=== PATIENT | male | born 1950 | race African-American/Black ===

== ENCOUNTER 2020-02-12 11:24 | Outpatient (REF) | payer MEDICARE, MEDICAID, SELFPAY | END 2020-02-12 11:25 | disposition home or self-care (01) | LOC: HO.LAB 11:24 | PROVIDERS: Visit Provider Internal Medicine | DX: Z20.828 Contact with and (suspected) exposure to other viral communicable diseases (principal) | CPT/HCPCS: C9803; U0003 ==

== ENCOUNTER 2020-02-26 13:26 | Outpatient (REF) | payer MEDICARE, MEDICAID, SELFPAY | END 2020-02-26 13:27 | disposition home or self-care (01) | LOC: HO.LAB 13:26 | PROVIDERS: Visit Provider Internal Medicine | DX: Z20.828 Contact with and (suspected) exposure to other viral communicable diseases (principal) | CPT/HCPCS: C9803; U0003 ==

== ENCOUNTER → 2020-03-30 12:59 | Outpatient (BNVA) | payer MEDICARE, MEDICAID, SELFPAY | PROVIDERS: PCP Internal Medicine; Visit Provider Urology | DX: N40.0 Benign prostatic hyperplasia without lower urinary tract symptoms (principal) | CPT/HCPCS: 51798; 99212 ==

== ENCOUNTER 2020-04-02 10:45 | Outpatient (REF) | payer MEDICARE, MEDICAID, SELFPAY | END 2020-04-02 10:46 | disposition home or self-care (01) | LOC: HO.LAB 10:45 | PROVIDERS: Visit Provider Internal Medicine | DX: Z20.828 Contact with and (suspected) exposure to other viral communicable diseases (principal) | CPT/HCPCS: C9803; U0003 ==

== ENCOUNTER 2020-05-27 12:22 | Outpatient (REF) | payer MEDICARE, MEDICAID, SELFPAY ==
[2020-05-27 14:39] LABS: Alanine Aminotransferase 21 U/L (0-40); Albumin Level 4.2 g/dL (3.5-5.0); Alkaline Phosphatase 121 U/L (39-117); Aspartate Amino Transferase 21 U/L (5-37); Bilirubin Direct < 0.2 mg/dL (0.0-0.5); Bilirubin Total 0.3 mg/dL (0.0-1.0); Total Protein 7.4 g/dL (6.5-8.0)
== END 2020-05-27 12:23 | disposition home or self-care (01) ==
LOC: HO.LAB 12:22
PROVIDERS: PCP Internal Medicine; Visit Provider Psychiatry & Neurology Neurology
DX: G40.909 Epilepsy, unspecified, not intractable, without status epilepticus (principal)
CPT/HCPCS: 36415; 80076

== ENCOUNTER 2020-09-10 21:50 | Emergency (ER) | payer MEDICARE, MEDICAID, SELFPAY ==
[2020-09-10 22:32] VITALS: BP 138/63; PULSE 71; RESP 18; TEMP 36.6; O2SAT 97; BMI 29.8
[2020-09-11 01:29] LABS: MANUAL DIFF FLAG NO
[2020-09-11 01:30] LABS: Basophils Percent Auto 0.6 % (0-2); Eosinophils Absolute Auto 0.2 X10*3/uL (0.0-0.4); Eosinophils Percent Auto 3.2 % (0-4); Hematocrit 37.8 % (42-52); Hemoglobin 12.3 g/dl (14.0-18.0); Imm Gran Abs Auto 0.01 X10*3/uL (0.00-0.03); Imm Gran Pct Auto 0.1 % (0.0-0.4); Lymphocytes Absolute Auto 2.7 X10*3/uL (1.2-4.9); Lymphocytes Percent Auto 37.7 % (20-40); Mean Corpuscular HGB Conc 32.5 g/dl (31.0-36.0); Mean Corpuscular Hemoglobin 30.2 pg (27.0-33.0); Mean Corpuscular Volume 92.9 fL (80-98); Mean Platelet Volume 10.2 fL (9.4-12.4); Monocytes Absolute Auto 0.7 X10*3/uL (0.1-1.2); Monocytes Percent Auto 9.1 % (2-11); Neutrophils Absolute Auto 3.5 X10*3/uL (2.0-8.3); Neutrophils Percent Auto 49.3 % (45-73); Platelet Count 180 X10*3/uL (160-400); Red Blood Count 4.07 X10*6/uL (4.60-5.80); Red Cell Distribution Width 13.4 % (11.0-16.0); White Blood Count 7.2 X10*3/uL (4.8-10.8)
--- NOTE | 2020-09-11 01:54 | ED_ITS ---
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 His manager group home states he was changing his pants and fell backward. She states he did not lose consciousness but looks a little disoriented after the fall. He is denying any pain currently. He denies headache, dizziness, lightheadedness, nausea or vomiting. Related Data Home Medications Medication Instructions Recorded Confirmed alcohol swabs pad TOPICAL 03/30/20 03/30/20 aspirin 81 mg tablet,delayed 81 mg PO QAM 03/30/20 03/30/20 release atorvastatin 40 mg tablet mg PO 03/30/20 03/30/20 blood sugar diagnostic #10 ea 03/30/20 03/30/20 blood-glucose meter #1 ea 03/30/20 03/30/20 folic acid 1 mg tablet 1 mg PO QAM 03/30/20 03/30/20 lancets 33 gauge #100 ea 03/30/20 03/30/20 losartan 50 mg tablet 50 mg PO DAILY 03/30/20 03/30/20 metformin 1,000 mg tablet 1,000 mg PO BID 03/30/20 03/30/20 omeprazole 20 mg capsule,delayed 20 mg PO DAILY 03/30/20 03/30/20 release phenobarbital 32.4 mg tablet 32.4 mg PO QID 03/30/20 03/30/20 phenytoin sodium extended 100 mg mg PO 03/30/20 03/30/20 capsule terazosin 2 mg capsule 2 mg PO BEDTIME 03/30/20 03/30/20 tolterodine 4 mg capsule,extended mg PO 03/30/20 03/30/20 release 24 hr Previous Rx's Medication Instructions Recorded tolterodine 4 mg capsule,extended 4 mg PO BID 90 Days #180 cap 05/05/20 release 24 hr Allergies Allergy/AdvReac Type Severity Reaction Status Date / Time No Known Allergies Allergy Mild NONE Verified 03/30/20 13:28 lisinopril AdvReac Unknown cough Verified 03/30/20 13:28 Review of Systems Review of Systems: Yes all other systems are reviewed and are negative [facility] Past Medical History Medical History Affective disorder Anodontia BPH (benign prostatic hyperplasia) BPH (benign prostatic hyperplasia) Diabetes Frequency of urination HTN (hypertension) Hyperlipemia Schizophrenia Seizure disorder Tubular adenoma Family History Family History Other Prostate cancer Social History Social History Advance Directives: No Advance Directives Information Provided: No Physical Exam Vital Signs: Vital Signs: Last Vital Signs Temp 97.9 F 09/10/20 22:32 Pulse 71 09/10/20 22:32 Resp 18 09/10/20 22:32 BP 138/63 09/10/20 22:32 Pulse Ox 97 09/10/20 22:32 Body Mass Index 29.8 Const: General: cooperative, healthy appearing, comfortable, no acute distress and well developed Orientation/consciousness: patient oriented x3 Limitations: no limitations HENMT: Head: Yes normal to inspection, Yes No palpable skull fracture present, Yes normocephalic, Yes atraumatic, No abrasion, No Lozoya's sign, No contusion, No hematoma, No laceration, No palpable skull fracture, No raccoon eyes and No scalp tenderness Eyes: General: appearance normal, both eyes and all related structures Neck: Neck: Yes normal visual inspection and Yes full ROM Resp: Effort & Inspection: normal respiratory effort and able to speak in complete sentences Auscultation: clear to auscultation bilaterally Cardio: Rate: regular rate Rhythm: regular rhythm Heart sounds: normal S1 and S2 GI: Inspection: Yes normal to inspection Palpation (GI): Soft to palpation and nontender Back/Spine/Pelvis: Cervical Spine: cervical ROM normal and No Cervical spine tenderness Thoracic/Lumbar Spine: thoracic and lumbar spine normal to inspection, No paraspinal muscle tenderness, No thoracic spinal tenderness and No lumbar spinal tenderness Pelvis: no pain with anterior-posterior compression Sacrum: no tenderness Skin: General skin exam: no rashes or lesions noted Neuro: Other: Patient at baseline per manager group home General: patient oriented x3 Gait exam (Neuro): Normal gait present Extrem: Other: No tenderness to palpation to bilateral upper extremities bilateral lower extremities General: Yes normal to inspection and Yes full ROM Course Course Course Narrative: Patient is a 70-year-old Hungarian-speaking male so past medical history of schizophrenia, seizure disorder, DM to, BPH, HLD in to your adenoma who presents after having an unwitnessed mechanical fall while changing his pants at his long-term this evening. Vital signs are stable, labs were ordered but chemistry did not results as lab is down currently. Patient is well- appearing and acting at baseline per manager group home. Physical exam was completely unremarkable, will discharge patient with precautions on when to return. MDM - Fall Lab Data Result diagrams: 09/11/20 01:24 09/11/20 01:24 Labs: Lab Results 09/11/20 Range/Units 01:24 WBC 7.2 (4.8-10.8) X10*3/uL RBC 4.07 L (4.60-5.80) X10*6/uL Hgb 12.3 L (14.0-18.0) g/dl Hct 37.8 L (42-52) % MCV 92.9 (80-98) fL MCH 30.2 (27.0-33.0) pg MCHC 32.5 (31.0-36.0) g/dl RDW 13.4 (11.0-16.0) % Plt Count 180 (160-400) X10*3/uL MPV 10.2 (9.4-12.4) fL Immature Gran % (Auto) 0.1 (0.0-0.4) % Neut % (Auto) 49.3 (45-73) % Lymph % (Auto) 37.7 (20-40) % [place]ondera % (Auto) 9.1 (2-11) % Eos % (Auto) 3.2 (0-4) % Baso % (Auto) 0.6 (0-2) % Lymph # (Auto) 2.7 (1.2-4.9) X10*3/uL [place] # (Auto) 0.7 (0.1-1.2) X10*3/uL Eos # (Auto) 0.2 (0.0-0.4) X10*3/uL Baso # (Auto) 0.0 (0.0-0.2) X10*3/uL Abs Immat Gran (auto) 0.01 (0.00-0.03) X10*3/uL Absolute Neuts (auto) 3.5 (2.0-8.3) X10*3/uL Absolute Nucleated RBC 0.000 (0.0-0.012) X10*3/uL Nucleated RBC % (auto) 0.0 (0.0-0.2) /100WBC Discharge Plan Discharge Clinical Impression: Fall Qualifiers: Encounter type: initial encounter Qualified Code(s): W19.XXXA - Unspecified fall, initial encounter Patient Disposition: Home, Self-Care Instructions: Fall Prevention for Older Adults (ED) Additional Instructions: If you notice a change in behavior, headache you described as the worst headache of your life , nausea or vomiting, please return to the emergency department. Prescriptions: No Action tolterodine 4 mg capsule,extended release 24hr 4 mg PO BID 90 Days Qty: 180 RF: 2 phenobarbital 32.4 mg tablet 32.4 mg PO QID RF: 0 omeprazole 20 mg capsule,delayed release(DR/EC) 20 mg PO DAILY RF: 0 metformin 1,000 mg tablet 1,000 mg PO BID RF: 0 terazosin 2 mg capsule 2 mg PO BEDTIME RF: 0 phenytoin sodium extended 100 mg capsule PO RF: 0 tolterodine 4 mg capsule,extended release 24hr PO RF: 0 atorvastatin 40 mg tablet PO RF: 0 folic acid 1 mg tablet 1 mg PO QAM RF: 0 aspirin 81 mg tablet,delayed release (DR/EC) 81 mg PO QAM RF: 0 (DME) lancets 33 gauge misc See Rx Instructions ea Not Applicable DAILY Qty: 100 RF: 0 (DME) FreeStyle Lite Strips Strip See Rx Instructions ea Not Applicable DAILY Qty: 10 RF: 0 alcohol swabs Pads, Medicated topical RF: 0 (DME) blood-glucose meter Kit See Rx Instructions ea Not Applicable BID Qty: 1 RF: 0 losartan 50 mg tablet 50 mg PO DAILY RF: 0 Referrals: Haley Dominguez MD [Primary Care Provider] - 3 days (Mechanical fall)
--- NOTE | 2020-09-11 02:18 | PC.NURSE ---
PT AWAKE AND ALERT, AT BASELINE PER STAFF MEMBER. PT AWARE OF HIS SURROUNDINGS AND AMBULATORY WITH STEADY GAIT. PT NEEDED MEDICAL CLEARANCE BEFORE RETURNING TO RETIREMENT. PT HAS NO COMPLAINT OF PAIN OR INJURY.
[2020-09-11 06:14] LABS: Chloride 98 mmol/L (96-108); Potassium 5.1 mmol/L (3.3-5.1); Sodium 141 mmol/L (135-145)
[2020-09-11 06:15] LABS: Anion Gap 15 (12-20); Carbon Dioxide 28 mmol/L (22-29)
[2020-09-11 06:16] LABS: Blood Urea Nitrogen 16 mg/dL (9-16)
[2020-09-11 06:17] LABS: Estimated Glomerular Filt Rate 87; Glucose Random 97 mg/dL (60-115)
[2020-09-11 06:18] LABS: Calcium 9.5 mg/dL (8.4-10.2)
== END 2020-09-11 02:20 | disposition home or self-care (01) ==
PROVIDERS: Emergency Provider Emergency Medicine Emergency Medical Services; PCP Internal Medicine
DX: Z02.2 Encounter for examination for admission to residential institution (principal); Z91.81 History of falling
CPT/HCPCS: 36415; 80048; 85025; 99283

== ENCOUNTER 2020-09-30 10:59 | Outpatient (REF) | payer MEDICARE, MEDICAID, SELFPAY ==
--- NOTE | ~2020-09-30 | CT_ITS ---
EXAMINATION: CT HEAD WITHOUT CONTRAST CLINICAL INFORMATION: Other symptoms and signs with cognitive dysfunction COMPARISON: None TECHNIQUE: Contiguous axial imaging was performed from the skull base to vertex without intravenous administration of contrast. This CT examination was performed using dose optimization techniques as appropriate, variously including the following: *Automated exposure control *Adjustment of mA and/or kV according to patient size (this includes techniques or standardized protocols for targeted exams where dose is matched to indication/reason for exam; i.e. extremities or head) *Use of iterative reconstruction technique DLP: 711 mGy-cm FINDINGS: There is no evidence of an extra-axial collection. There is no evidence of intra-axial or extra-axial hemorrhage. There is generalized prominence of the ventricles and extra-axial CSF spaces. There is nonspecific periventricular white matter disease. There is are old infarcts or areas of encephalomalacia seen at the base of the left frontal lobe and left temporal lobe. No mass, mass effect or acute infarct is seen. Review at bone windows is normal. No skull fracture is seen. Visualized paranasal sinuses, mastoid air cells and middle ears are clear. CT/CT head/brain wo con IMPRESSION: Prominent ventricles and extra-axial CSF spaces suggestive of mild generalized atrophy. Nonspecific periventricular white matter disease. Old infarcts or areas of encephalomalacia in the base of the left frontal lobe and left temporal lobe.
== END 2020-09-30 11:00 | disposition home or self-care (01) ==
LOC: HO.CT 10:59
PROVIDERS: PCP Internal Medicine; Visit Provider Internal Medicine
DX: R41.89 Other symptoms and signs involving cognitive functions and awareness (principal); E11.9 Type 2 diabetes mellitus without complications
CPT/HCPCS: 70450

== ENCOUNTER 2020-10-05 14:45 | Emergency (ER) | payer MEDICARE, MEDICAID, SELFPAY ==
--- NOTE | ~2020-10-05 | CT_ITS ---
EXAMINATION: CT HEAD WITHOUT CONTRAST CLINICAL INFORMATION: Status post fall. COMPARISON: CT of the head done on 09/30/2020. TECHNIQUE: Contiguous axial imaging was performed from the skull base to vertex without intravenous administration of contrast. This CT examination was performed using dose optimization techniques as appropriate, variously including the following: *Automated exposure control *Adjustment of mA and/or kV according to patient size (this includes techniques or standardized protocols for targeted exams where dose is matched to indication/reason for exam; i.e. extremities or head) *Use of iterative reconstruction technique DLP: 760.7 mGy-cm FINDINGS: There is no evidence of acute intracranial hemorrhage or territorial infarction. No abnormal mass effect or midline shift is seen. Borrero to white matter differentiation is well preserved. No extra-axial fluid collections are identified. The ventricles are normal in size. Previously identified left temporal and left basilic frontal encephalomalacia appear stable. Mild diffuse cortical atrophy and mild chronic microvascular department ischemic changes are present, unchanged. The osseous structures and soft tissues are normal. The mastoid air cells and visualized portions of the paranasal sinuses are well aerated. CT/CT head/brain wo con IMPRESSION: No acute intracranial pathology. No significant change since 09/30/2020.
[2020-10-05 15:35] VITALS: BP 122/59; PULSE 69; RESP 18; TEMP 36.2; O2SAT 96; BMI 32.3
--- NOTE | 2020-10-05 15:55 | ED_ITS ---
HPI - Fall General Chief Complaint: Fall Stated Complaint: FALL HEAD INJ Time Seen by Provider: 10/05/20 15:55 History of Present Illness HPI Narrative: patient from detention here with escort from detention who fell today hitting the back of his head and is here for evaluation The patient is a poor historian as he has dementia and the load dispatcher from the detention says that they believe he hit his head in are concerned about this He had no obvious loss of consciousness and did not seem to have any neck pain back pain and is walking and interacting normally for him Related Data Home Medications Medication Instructions Recorded Confirmed alcohol swabs pad TOPICAL 03/30/20 03/30/20 aspirin 81 mg tablet,delayed 81 mg PO QAM 03/30/20 03/30/20 release atorvastatin 40 mg tablet mg PO 03/30/20 03/30/20 blood sugar diagnostic #10 ea 03/30/20 03/30/20 blood-glucose meter #1 ea 03/30/20 03/30/20 folic acid 1 mg tablet 1 mg PO QAM 03/30/20 03/30/20 lancets 33 gauge #100 ea 03/30/20 03/30/20 losartan 50 mg tablet 50 mg PO DAILY 03/30/20 03/30/20 metformin 1,000 mg tablet 1,000 mg PO BID 03/30/20 03/30/20 omeprazole 20 mg capsule,delayed 20 mg PO DAILY 03/30/20 03/30/20 release phenobarbital 32.4 mg tablet 32.4 mg PO QID 03/30/20 03/30/20 phenytoin sodium extended 100 mg mg PO 03/30/20 03/30/20 capsule terazosin 2 mg capsule 2 mg PO BEDTIME 03/30/20 03/30/20 tolterodine 4 mg capsule,extended mg PO 03/30/20 03/30/20 release 24 hr Previous Rx's Medication Instructions Recorded tolterodine 4 mg capsule,extended 4 mg PO BID 90 Days #180 cap 05/05/20 release 24 hr Allergies Allergy/AdvReac Type Severity Reaction Status Date / Time No Known Allergies Allergy Mild NONE Verified 03/30/20 13:28 lisinopril AdvReac Unknown cough Verified 03/30/20 13:28 Review of Systems Review of Systems: Negatives are no fainting no loss of consciousness no nausea or vomiting no difficulty breathing no weakness no difficulty ambulating no joints well Yes all other systems are reviewed and are negative [facility] Past Medical History Source: nursing notes reviewed Medical History Affective disorder Anodontia BPH (benign prostatic hyperplasia) BPH (benign prostatic hyperplasia) Diabetes Frequency of urination HTN (hypertension) Hyperlipemia Schizophrenia Seizure disorder Tubular adenoma Family History Family History Other Prostate cancer Social History Social History Advance Directives: No Advance Directives Information Provided: No Physical Exam Vital Signs: Vital Signs: Last Vital Signs Temp 97.1 F 10/05/20 15:35 Pulse 69 10/05/20 15:35 Resp 18 10/05/20 15:35 BP 122/59 L 10/05/20 15:35 Pulse Ox 96 10/05/20 15:35 Body Mass Index 32.3 General appearance is no distress, patient looks comfortable Head is normocephalic atraumatic the ears there is no hemotympanum The scalp exam there is no hematoma no deformity no tenderness, there is no marquez sign no raccoon eyes Pupils equal round reactive to light extraocular motions are intact There is no tenderness to the face Neck is supple and nontender Chest is clear to auscultation, there is no chest wall tenderness The back is full range of motion no tenderness to the back Extremities full range of motion x4 Neuro no focal motor or sensory deficit Course Course Course Narrative: Staff was concerned as patient had fall and hit his head, as he cannot communicate well it is not clear if he had headache or any other complaint so CT was done and it was negative, no bleed no skull fracture, and well-appearing patient stable throughout visit was discharged Discharge Plan Discharge Clinical Impression: Contusion of head Patient Disposition: Home, Self-Care Additional Instructions: exam did not show any sign of any dangerous injury Head CT was done as there was a question of whether he had injured his head in his fall and head CT was normal with no evidence of bleeding or skull fracture Return any time any worse condition or any concerns okay for all regular activities Prescriptions: No Action tolterodine 4 mg capsule,extended release 24hr 4 mg PO BID 90 Days Qty: 180 RF: 2 phenobarbital 32.4 mg tablet 32.4 mg PO QID RF: 0 omeprazole 20 mg capsule,delayed release(DR/EC) 20 mg PO DAILY RF: 0 metformin 1,000 mg tablet 1,000 mg PO BID RF: 0 terazosin 2 mg capsule 2 mg PO BEDTIME RF: 0 phenytoin sodium extended 100 mg capsule PO RF: 0 tolterodine 4 mg capsule,extended release 24hr PO RF: 0 atorvastatin 40 mg tablet PO RF: 0 folic acid 1 mg tablet 1 mg PO QAM RF: 0 aspirin 81 mg tablet,delayed release (DR/EC) 81 mg PO QAM RF: 0 (DME) lancets 33 gauge misc See Rx Instructions ea Not Applicable DAILY Qty: 100 RF: 0 (DME) FreeStyle Lite Strips Strip See Rx Instructions ea Not Applicable DAILY Qty: 10 RF: 0 alcohol swabs Pads, Medicated topical RF: 0 (DME) blood-glucose meter Kit See Rx Instructions ea Not Applicable BID Qty: 1 RF: 0 losartan 50 mg tablet 50 mg PO DAILY RF: 0 Interventions: ED Discharge Assessment Last Done: 10/05/20 17:15 Discharge Date/Time: 10/05/20 17:20
== END 2020-10-05 17:20 | disposition home or self-care (01) ==
PROVIDERS: Emergency Provider Emergency Medicine; PCP Internal Medicine
DX: S00.93XA Contusion of unspecified part of head, initial encounter (principal); W01.0XXA Fall on same level from slipping, tripping and stumbling without subsequent striking against object, initial encounter; Y93.9 Activity, unspecified; Y92.049 Unspecified place in boarding-house as the place of occurrence of the external cause; Y99.9 Unspecified external cause status; E11.9 Type 2 diabetes mellitus without complications; I10 Essential (primary) hypertension; E78.5 Hyperlipidemia, unspecified; Z79.82 Long term (current) use of aspirin; Z79.02 Long term (current) use of antithrombotics/antiplatelets; Z79.899 Other long term (current) drug therapy
CPT/HCPCS: 70450; 99283; 99284

== ENCOUNTER 2020-11-13 21:49 | Emergency (ER) | payer MEDICARE, MEDICAID, SELFPAY ==
--- NOTE | ~2020-11-13 | CT_ITS ---
EXAMINATION: CT HEAD WITHOUT CONTRAST CLINICAL INFORMATION: Fall COMPARISON: 10/05/2020 TECHNIQUE: Contiguous axial imaging was performed from the skull base to vertex without intravenous contrast. This CT examination was performed using dose optimization techniques as appropriate, variously including the following: * Automated exposure control * Adjustment of mA and/or kV according to patient size (this includes techniques or standardized protocols for targeted exams where dose is matched to indication/reason for exam; i.e. extremities or head) Use of iterative reconstruction technique DLP: 704 mGy-cm. FINDINGS: There is no evidence of acute intracranial hemorrhage or territorial infarction. No abnormal mass effect or midline shift is seen. Borrero to white matter differentiation is well preserved. No extra-axial fluid collections are identified. No hydrocephalus. Proportional prominence of the ventricles and sulcal spaces is consistent with mild volume loss. Patchy periventricular and deep white matter hypoattenuation is consistent with mild small vessel ischemic changes. 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 The osseous structures and soft tissues are normal. The mastoid air cells and visualized portions of the paranasal sinuses are well aerated. CT/CT head/brain wo con IMPRESSION: No acute intracranial pathology. Multiple chronic infarcts.
[2020-11-13 21:53] VITALS: BP 124/60; PULSE 67; RESP 18; TEMP 36.6; O2SAT 98; BMI 32.3
--- NOTE | 2020-11-14 01:13 | ECG_ITS ---
Test Reason : FALL Blood Pressure : / mmHG Vent. Rate : 068 BPM Atrial Rate : 068 BPM P-R Int : 180 ms QRS Dur : 090 ms QT Int : 402 ms P-R-T Axes : 014 054 035 degrees QTc Int : 427 ms Normal sinus rhythm Normal ECG When compared with ECG of 20-MAY-2013 11:12, No significant change was found Referred By: Charity Higginbotham Electronically Signed By:RAJESH PATTERSON
--- NOTE | 2020-11-14 01:13 | ED.FALL ---
HPI - Fall General Chief Complaint: Fall Stated Complaint: fall Time Seen by Provider: 11/14/20 01:13 Source: patient and other Mode of arrival: ambulatory History of Present Illness HPI Narrative: This is a 70-year-old male is brought in from a [facility]dc where he is monitored for baseline dementia, diabetes with a fall earlier in the evening where patient became unsteady but patient denies any associated dizziness, headaches, shortness breath, chest pain/palpitations and states that although he hit his head he did not lose consciousness. Otherwise, he denies any sore throat, cough, fevers, chills, GI or symptoms. Related Data Home Medications Medication Instructions Recorded Confirmed alcohol swabs pad TOPICAL 03/30/20 03/30/20 aspirin 81 mg tablet,delayed 81 mg PO QAM 03/30/20 03/30/20 release atorvastatin 40 mg tablet mg PO 03/30/20 03/30/20 blood sugar diagnostic #10 ea 03/30/20 03/30/20 blood-glucose meter #1 ea 03/30/20 03/30/20 folic acid 1 mg tablet 1 mg PO QAM 03/30/20 03/30/20 lancets 33 gauge #100 ea 03/30/20 03/30/20 losartan 50 mg tablet 50 mg PO DAILY 03/30/20 03/30/20 metformin 1,000 mg tablet 1,000 mg PO BID 03/30/20 03/30/20 omeprazole 20 mg capsule,delayed 20 mg PO DAILY 03/30/20 03/30/20 release phenobarbital 32.4 mg tablet 32.4 mg PO QID 03/30/20 03/30/20 phenytoin sodium extended 100 mg mg PO 03/30/20 03/30/20 capsule terazosin 2 mg capsule 2 mg PO BEDTIME 03/30/20 03/30/20 tolterodine 4 mg capsule,extended mg PO 03/30/20 03/30/20 release 24 hr Previous Rx's Medication Instructions Recorded tolterodine 4 mg capsule,extended 4 mg PO BID 90 Days #180 cap 05/05/20 release 24 hr Allergies Allergy/AdvReac Type Severity Reaction Status Date / Time No Known Allergies Allergy Mild NONE Verified 03/30/20 13:28 lisinopril AdvReac Unknown cough Verified 03/30/20 13:28 Review of Systems Review of Systems: Pertinent positives and negatives as stated in HPI 10 point review of systems is otherwise negative. [facility] Past Medical History Source: nursing notes reviewed Medical History Affective disorder Anodontia BPH (benign prostatic hyperplasia) BPH (benign prostatic hyperplasia) Diabetes Frequency of urination HTN (hypertension) Hyperlipemia Schizophrenia Seizure disorder Tubular adenoma Family History Family History Other Prostate cancer Social History Social History Advance Directives: No Advance Directives Information Provided: No Physical Exam Vital Signs: Vital Signs: Last Vital Signs Temp 97.8 F 11/13/20 21:53 Pulse 67 11/13/20 21:53 Resp 18 11/13/20 21:53 BP 124/60 11/13/20 21:53 Pulse Ox 98 11/13/20 21:53 Body Mass Index 32.3 VITAL SIGNS: Reviewed. GENERAL: Well developed, well nourished, in no acute distress. HEAD: Normocephalic/atraumatic EYES: PERRLA, EOMI OROPHARYNX: no oral lesions noted, posterior pharynx clear NECK: Supple, no adenopathy LUNGS: Normal breath sounds. No adventitious sounds or accessory muscle use. [id number]<> CARDIOVASCULAR: Regular rate and rhythm without noted murmurs, no JVD or lower extremity edema. ABDOMEN: Soft, non-tender, non-distended with bowel sounds. SKIN: Inspection of the skin reveals no rashes NEUROLOGIC: Alert and oriented x 2. Strength and sensation to light touch were grossly intact x 4, no pronator drift, cranial nerves 2-12 grossly intact Course Course Course Narrative: This is a 70-year-old male with history and clinical presentation suggestive of possible mechanical fall, but given patient's history will rule out evidence for arrhythmia, anemia, or infection. Review of all investigations without acute findings. Patient was discharged back to the group facility in stable condition. MDM - Fall Lab Data Result diagrams: 11/14/20 02:31 11/14/20 02:31 Labs: Lab Results 11/14/20 11/14/20 11/14/20 Range/Units 02:31 02:31 05:41 WBC 6.9 (4.8-10.8) X10*3/uL RBC 4.11 L (4.60-5.80) X10*6/uL Hgb 12.5 L (14.0-18.0) g/dl Hct 38.8 L (42-52) % MCV 94.4 (80-98) fL MCH 30.4 (27.0-33.0) pg MCHC 32.2 (31.0-36.0) g/dl RDW 12.4 (11.0-16.0) % Plt Count 180 (160-400) X10*3/uL MPV 10.7 (9.4-12.4) fL Immature Gran % (Auto) 0.3 (0.0-0.4) % Neut % (Auto) 48.2 (45-73) % Lymph % (Auto) 39.0 (20-40) % [place] % (Auto) 8.8 (2-11) % Eos % (Auto) 3.0 (0-4) % Baso % (Auto) 0.7 (0-2) % Lymph # (Auto) 2.7 (1.2-4.9) X10*3/uL [place] # (Auto) 0.6 (0.1-1.2) X10*3/uL Eos # (Auto) 0.2 (0.0-0.4) X10*3/uL Baso # (Auto) 0.1 (0.0-0.2) X10*3/uL Abs Immat Gran (auto) 0.02 (0.00-0.03) X10*3/uL Absolute Neuts (auto) 3.3 (2.0-8.3) X10*3/uL Absolute Nucleated RBC 0.000 (0.0-0.012) X10*3/uL Nucleated RBC % (auto) 0.0 (0.0-0.2) /100WBC Sodium 142 (135-145) mmol/L Potassium 4.2 (3.3-5.1) mmol/L Chloride 103 (96-108) mmol/L Carbon Dioxide 25 (22-29) mmol/L Anion Gap 18 (12-20) BUN 16 (9-16) mg/dL Creatinine 0.92 (0.5-1.4) mg/dL Estim Creat Clear Calc 76.5 Estimated GFR > 60 Random Glucose 103 (60-115) mg/dL Calcium 9.4 (8.4-10.2) mg/dL Total Bilirubin < 0.2 (0.0-1.0) mg/dL AST 25 (5-37) U/L ALT 24 (0-40) U/L Alkaline Phosphatase 106 (39-117) U/L Total Protein 6.9 (6.5-8.0) g/dL Albumin 3.8 (3.5-5.0) g/dL Urine Color YELLOW Urine Appearance CLEAR Urine pH 5.5 (5.0-8.0) Ur Specific [place] 1.010 (1.005-1.025) Urine Protein NEG (NEG-TRACE) MG/DL Urine Glucose (UA) NEG (NEG) MG/DL Urine Ketones NEG (NEG) MG/DL Urine Blood NEG (NEG) Urine Nitrite NEG (NEG) Ur Leukocyte Esterase NEG (NEG) ECG Data Attestation: I personally reviewed and interpreted this ECG as follows: Prior ECG tracings: available for review (05/20/2013 no acute changes on comparison) Interpretation: Normal sinus rhythm, HR-68, no STEMI, [place]/QRS/QTC are within normal limits. Discharge Plan Discharge Clinical Impression: Accident due to mechanical fall without injury Patient Disposition: Xfer Other Instructions: Fall Prevention for Older Adults (ED), Fall Prevention (ED) Additional Instructions: 1. Resume all home medications as prescribed. 2. Follow-up with the primary care provider in next 2-3 days for re-evaluation. Return to the ER for acute worsening of symptoms. Prescriptions: No Action tolterodine 4 mg capsule,extended release 24hr 4 mg PO BID 90 Days Qty: 180 RF: 2 phenobarbital 32.4 mg tablet 32.4 mg PO QID RF: 0 omeprazole 20 mg capsule,delayed release(DR/EC) 20 mg PO DAILY RF: 0 metformin 1,000 mg tablet 1,000 mg PO BID RF: 0 terazosin 2 mg capsule 2 mg PO BEDTIME RF: 0 phenytoin sodium extended 100 mg capsule PO RF: 0 tolterodine 4 mg capsule,extended release 24hr PO RF: 0 atorvastatin 40 mg tablet PO RF: 0 folic acid 1 mg tablet 1 mg PO QAM RF: 0 aspirin 81 mg tablet,delayed release (DR/EC) 81 mg PO QAM RF: 0 (DME) lancets 33 gauge misc See Rx Instructions ea Not Applicable DAILY Qty: 100 RF: 0 (DME) FreeStyle Lite Strips Strip See Rx Instructions ea Not Applicable DAILY Qty: 10 RF: 0 alcohol swabs Pads, Medicated topical RF: 0 (DME) blood-glucose meter Kit See Rx Instructions ea Not Applicable BID Qty: 1 RF: 0 losartan 50 mg tablet 50 mg PO DAILY RF: 0 Referrals: Haley Dominguez MD [Primary Care Provider] - 2 days Print Language: Nepali
[2020-11-14 02:34] LABS: MANUAL DIFF FLAG NO
[2020-11-14 03:06] LABS: Alanine Aminotransferase 24 U/L (0-40); Albumin Level 3.8 g/dL (3.5-5.0); Alkaline Phosphatase 106 U/L (39-117); Anion Gap 18 (12-20); Aspartate Amino Transferase 25 U/L (5-37); Bilirubin Total < 0.2 mg/dL (0.0-1.0); Blood Urea Nitrogen 16 mg/dL (9-16); Calcium 9.4 mg/dL (8.4-10.2); Carbon Dioxide 25 mmol/L (22-29); Chloride 103 mmol/L (96-108); Creatinine Clr Calc Pharmacy 76.5; Estimated Glomerular Filt Rate > 60; Glucose Random 103 mg/dL (60-115); Potassium 4.2 mmol/L (3.3-5.1); Sodium 142 mmol/L (135-145); Total Protein 6.9 g/dL (6.5-8.0)
[2020-11-14 03:08] LABS: Basophils Absolute Auto 0.1 X10*3/uL (0.0-0.2); Basophils Percent Auto 0.7 % (0-2); Eosinophils Absolute Auto 0.2 X10*3/uL (0.0-0.4); Hematocrit 38.8 % (42-52); Hemoglobin 12.5 g/dl (14.0-18.0); Imm Gran Abs Auto 0.02 X10*3/uL (0.00-0.03); Imm Gran Pct Auto 0.3 % (0.0-0.4); Lymphocytes Absolute Auto 2.7 X10*3/uL (1.2-4.9); Mean Corpuscular HGB Conc 32.2 g/dl (31.0-36.0); Mean Corpuscular Hemoglobin 30.4 pg (27.0-33.0); Mean Corpuscular Volume 94.4 fL (80-98); Mean Platelet Volume 10.7 fL (9.4-12.4); Monocytes Absolute Auto 0.6 X10*3/uL (0.1-1.2); Monocytes Percent Auto 8.8 % (2-11); Neutrophils Absolute Auto 3.3 X10*3/uL (2.0-8.3); Neutrophils Percent Auto 48.2 % (45-73); Platelet Count 180 X10*3/uL (160-400); Red Blood Count 4.11 X10*6/uL (4.60-5.80); Red Cell Distribution Width 12.4 % (11.0-16.0); White Blood Count 6.9 X10*3/uL (4.8-10.8)
[2020-11-14 05:52] LABS: Glucose Urine UA NEG (NEG); Leukocyte Esterase Urine NEG (NEG); Nitrite Urine NEG (NEG); PH 5.5 (5.0-8.0); Urine Blood NEG (NEG); Urine Ketones NEG (NEG); Urine Protein NEG (NEG-TRACE)
[2020-11-14 05:59] LABS: Appearance Urine CLEAR; Color Urine YELLOW
== END 2020-11-14 06:16 | disposition other institution (70) ==
PROVIDERS: Emergency Provider Student in an Organized Health Care Education/Training Program; PCP Internal Medicine
DX: Z04.3 Encounter for examination and observation following other accident (principal); Z91.81 History of falling; E11.9 Type 2 diabetes mellitus without complications; I10 Essential (primary) hypertension
CPT/HCPCS: 36415; 70450; 80053; 81003; 85025; 93005; 99283; 99284

== ENCOUNTER 2021-01-05 10:58 | Outpatient (REF) | payer MEDICARE, MEDICAID, SELFPAY ==
[2021-01-05 13:03] LABS: PSA,Total (Free>4and<10) 5.19 ng/mL (0.00-4.00); Prostate Specific Antigen 5.22 ng/mL (<0.05-4.0)
[2021-01-06 11:22] LABS: Free Prostate Spec Ag 0.8 ng/mL; Percent Free Prostate Spec Ag 17 % (calc) (>25); Prostate Specific Ag Total 4.6 ng/mL (< OR = 4.0)
== END 2021-01-05 10:59 | disposition home or self-care (01) ==
LOC: HO.LAB 10:58
PROVIDERS: Urology; Visit Provider Urology
DX: Z12.5 Encounter for screening for malignant neoplasm of prostate (principal); N40.0 Benign prostatic hyperplasia without lower urinary tract symptoms
CPT/HCPCS: 36415; 84153; 84154

== ENCOUNTER → 2021-01-12 11:38 | Outpatient (BNVA) | payer MEDICARE, MEDICAID, SELFPAY | PROVIDERS: PCP Internal Medicine; Visit Provider Urology | DX: N40.0 Benign prostatic hyperplasia without lower urinary tract symptoms (principal); N32.81 Overactive bladder | CPT/HCPCS: Q3014 ==

== ENCOUNTER 2021-04-26 12:53 | Outpatient (REF) | payer MEDICARE, MEDICAID, SELFPAY ==
[2021-04-26 13:16] VITALS: BP 122/65; PULSE 71; RESP 16; TEMP 36.6; O2SAT 98
[2021-04-26 13:32] VITALS: BMI 37.8
[2021-04-26 15:42] VITALS: BP 123/74; PULSE 67; RESP 16; O2SAT 100
== END 2021-04-26 12:54 | disposition home or self-care (01) ==
LOC: HO.MS 12:53
PROVIDERS: Visit Provider Ophthalmology
PROC: (CPT 67840; principal; 2021-04-26 13:50)
DX: D23.111 Other benign neoplasm of skin of right upper eyelid, including canthus (principal); I10 Essential (primary) hypertension; E11.9 Type 2 diabetes mellitus without complications; Z79.84 Long term (current) use of oral hypoglycemic drugs; Z79.899 Other long term (current) drug therapy; Z88.8 Allergy status to other drugs, medicaments and biological substances
CPT/HCPCS: 67840; 88305

== ENCOUNTER 2021-07-03 12:29 | Emergency (ER) | payer MEDICARE, MEDICAID, SELFPAY ==
--- NOTE | ~2021-07-03 | CT_ITS ---
EXAMINATION: CT HEAD WITHOUT CONTRAST CLINICAL INFORMATION: Fall, hit head. COMPARISON: None TECHNIQUE: Contiguous axial imaging was performed from the skull base to vertex without intravenous administration of contrast. This CT examination was performed using dose optimization techniques as appropriate, variously including the following: *Automated exposure control *Adjustment of mA and/or kV according to patient size (this includes techniques or standardized protocols for targeted exams where dose is matched to indication/reason for exam; i.e. extremities or head) *Use of iterative reconstruction technique DLP: 625 mGy-cm FINDINGS: There is no evidence of acute intracranial hemorrhage or territorial infarction. There is left inferior frontal and lateral temporal lobe hypodensity suggestive of old infarct. No abnormal mass effect or midline shift is seen. [place] to white matter differentiation is well preserved. No extra-axial fluid collections are identified. The lateral ventricles are symmetrical in size but enlarged. There is no abnormal attenuation within the brain parenchyma. The osseous structures and soft tissues are normal. The mastoid air cells and visualized portions of the paranasal sinuses are well aerated. CT/CT head/brain wo con IMPRESSION: No acute intracranial process seen. 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
[2021-07-03 12:36] VITALS: BP 140/66; PULSE 60; RESP 20; TEMP 36.4; O2SAT 99; BMI 32.3
--- NOTE | 2021-07-03 12:45 | ED.FALL ---
HPI - Fall General Chief Complaint: Fall Stated Complaint: fall/head INJ/shoulder pain Time Seen by Provider: 07/03/21 12:44 Source: patient Mode of arrival: ambulatory Limitations: no limitations History of Present Illness HPI Narrative: 71 yo male with history of BPH, HTN, HLD, schizophrenia, seizure disorder, dementia, DM here with complaints of fall last night at 11pm after tripping on his own feet. +head strike. No LOC. Staff was concerned because this morning patient was c/o shoulder pain right side. No LIAO, vision changes, vomiting, dizziness, neck pain, back pain, abdominal pain, vomiting or diarrhea. They tell me patient is at his baseline Related Data Home Medications Medication Instructions Recorded Confirmed alcohol swabs pad TOPICAL 03/30/20 03/30/20 aspirin 81 mg tablet,delayed 81 mg PO QAM 03/30/20 03/30/20 release atorvastatin 40 mg tablet mg PO 03/30/20 03/30/20 blood sugar diagnostic #10 ea 03/30/20 03/30/20 blood-glucose meter #1 ea 03/30/20 03/30/20 folic acid 1 mg tablet 1 mg PO QAM 03/30/20 03/30/20 lancets 33 gauge #100 ea 03/30/20 03/30/20 losartan 50 mg tablet 50 mg PO DAILY 03/30/20 03/30/20 metformin 1,000 mg tablet 1,000 mg PO BID 03/30/20 03/30/20 omeprazole 20 mg capsule,delayed 20 mg PO DAILY 03/30/20 03/30/20 release phenobarbital 32.4 mg tablet 32.4 mg PO QID 03/30/20 03/30/20 phenytoin sodium extended 100 mg mg PO 03/30/20 03/30/20 capsule terazosin 2 mg capsule 2 mg PO BEDTIME 03/30/20 03/30/20 tolterodine 4 mg capsule,extended mg PO 03/30/20 03/30/20 release 24 hr losartan 25 mg tablet 25 mg PO DAILY 01/12/21 metformin 850 mg tablet 850 mg PO BID 01/12/21 terazosin 1 mg capsule 1 mg PO DAILY 01/12/21 Previous Rx's Medication Instructions Recorded tolterodine 4 mg capsule,extended 4 mg PO BID 90 Days #180 cap 02/04/21 release 24 hr Allergies Allergy/AdvReac Type Severity Reaction Status Date / Time No Known Allergies Allergy Mild NONE Verified 01/12/21 11:40 lisinopril AdvReac Unknown cough Verified 01/12/21 11:40 Review of Systems Review of Systems: Yes all other systems are reviewed and are negative Constitutional: Constitutional: Reports no additional constitutional complaints, Denies body ache(s), Denies chills, Denies fever(s), Denies headache(s) and Denies weakness Eyes: Eyes: Reports no additional eye complaints and Denies change in vision ENT: Reports system reviewed and no additional complaints, except as documented, Denies dizziness, Denies headache(s), Denies nasal congestion, Denies nasal discharge and Denies neck pain Cardiovascular: Cardiovascular: Reports no additional cardiovascular complaints, Denies chest pain, Denies leg edema and Denies dyspnea Respiratory: Respiratory: Reports no additional respiratory complaints, Denies cough and Denies dyspnea Gastrointestinal: Gastrointestinal: Reports no additional gastrointestinal complaints, Denies abdominal pain, Denies diarrhea, Denies nausea and Denies vomiting Genitourinary: Genitourinary: Denies urinary incontinence Musculoskeletal: Musculoskeletal: Reports no additional musculoskeletal complaints, Denies back pain, Reports arthralgias, Denies joint swelling, Denies neck pain, Denies numbness and Denies tingling Integumentary/Breasts: Skin/Breast: Reports system reviewed and no additional complaints, except as docu and Denies rash Neurologic: Reports system reviewed and no additional complaints, except as documented, Denies Abnormal speech present, Denies dizziness, Denies headache(s), Denies numbness, Denies tingling and Denies weakness PMF Past Medical History Attestation statement: The following information was validated with the patient. Source: old records reviewed and nursing notes reviewed Medical History Affective disorder Anodontia BPH (benign prostatic hyperplasia) BPH (benign prostatic hyperplasia) Diabetes Frequency of urination HTN (hypertension) Hyperlipemia Schizophrenia Seizure disorder Tubular adenoma Family History Family History Other Prostate cancer Social History Social History Advance Directives: Yes Advance Directives Information Provided: No Advance Directives on File: No Physical Exam Vital Signs: Vital Signs: Last Vital Signs Temp 97.5 F 07/03/21 12:36 Pulse 60 07/03/21 12:36 Resp 20 07/03/21 12:36 BP 140/66 H 07/03/21 12:36 Pulse Ox 99 07/03/21 12:36 BMI result Body Mass Index 32.3 Const: General: cooperative, healthy appearing, comfortable and no acute distress Orientation/consciousness: oriented to person and oriented to place Limitations: no limitations HEENT: Head: Yes normal to inspection, No Lozoya's sign and No raccoon eyes Ears: hearing grossly normal bilaterally and TM's normal bilaterally General nose exam: Normal external nose present Face and sinus: Yes normal facial exam Mouth: Normal oral and palatal mucosa present Throat: Yes posterior oropharynx normal Eyes: General: appearance normal, both eyes and all related structures Pupils: Equal, round and reactive pupils present Neck: Other: No cervical tenderness/step offs or deformities. FROM Neck: Yes normal visual inspection and Yes full ROM Chest: Chest palpation & inspection: normal inspection of the chest Resp: Effort & Inspection: normal respiratory effort Auscultation: clear to auscultation bilaterally Cardio: Rate: regular rate Rhythm: regular rhythm Peripheral pulses: Peripheral pulses 2+ throughout GI: Inspection: Yes normal to inspection Palpation (GI): Soft to palpation and nontender Auscultation: normal bowel sounds Back/Spine/Pelvis: Thoracic/Lumbar Spine: thoracic and lumbar spine normal to inspection Skin: General skin exam: no rashes or lesions noted Neuro: General: oriented to person, oriented to place, moves all extremities, no focal motor deficits and normal sensation to monofilament Cranial nerves: Yes CN's II-XII intact bilaterally, Yes Equal, round and reactive pupils present, Yes Bilaterally intact EOM present, Yes Nystagmus not present, Yes Normal facial strength present and Yes Midline tongue present Cognition (Neuro): normal cognition Speech: No Abnormal speech present Gait exam (Neuro): Normal gait present Motor exam (neuro): 5/5 motor strength present throughout Sensory Exam: Normal double simultaneous stimulation for sensation Coordination: tandem gait normal Extrem: Other: Full range of motion right upper and left upper extremity with no obvious ecchymosis or deformity noted General: Yes normal to inspection Course Course Course Narrative: 71yo male here after mechanical fall last evening with head strike. NO LOC. At baseline mental status per family. Staff was concerned as the patient was complaining of some shoulder pain. On exam I do not appreciate any deformity and the patient has full range of motion with no elicited pain. Due to age and underlying dementia will check CT head. Anticipate discharge back to the residential living with staff member. 1430-CT head negative. Patient will be discharged back home with staff member. Reviewed worrisome signs and symptoms of when to return to the emergency department. Comfortable discharge home. MDM - Fall Medical Records Attestation: I reviewed the patient's medical records. Lab Data Attestation: I reviewed the patient's lab results. Imaging Data CT scan - head: Attestation: I personally reviewed and interpreted this imaging study as follows: Radiologist's impression: FINDINGS: There is no evidence of acute intracranial hemorrhage or territorial infarction. There is left inferior frontal and lateral temporal lobe hypodensity suggestive of old infarct. No abnormal mass effect or midline shift is seen. [place] to white matter differentiation is well preserved. No extra-axial fluid collections are identified. The lateral ventricles are symmetrical in size but enlarged. There is no abnormal attenuation within the brain parenchyma. The osseous structures and soft tissues are normal. The mastoid air cells and visualized portions of the paranasal sinuses are well aerated. ? CT/CT head/brain wo con IMPRESSION: No acute intracranial process seen. ? 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 Discharge Plan Discharge Clinical Impression: Fall, Contusion Patient Disposition: Home, Self-Care Instructions: Fall Prevention for Older Adults (ED), Contusion in Adults (ED) Prescriptions: No Action tolterodine 4 mg capsule,extended release 24hr 4 mg PO BID 90 Days Qty: 180 3RF phenobarbital 32.4 mg tablet 32.4 mg PO QID 0RF omeprazole 20 mg capsule,delayed release(DR/EC) 20 mg PO DAILY 0RF metformin 1,000 mg tablet 1,000 mg PO BID 0RF terazosin 2 mg capsule 2 mg PO BEDTIME 0RF phenytoin sodium extended 100 mg capsule PO 0RF tolterodine 4 mg capsule,extended release 24hr PO 0RF atorvastatin 40 mg tablet PO 0RF folic acid 1 mg tablet 1 mg PO QAM 0RF aspirin 81 mg tablet,delayed release (DR/EC) 81 mg PO QAM 0RF (DME) lancets 33 gauge misc See Rx Instructions ea Not Applicable DAILY Qty: 100 0RF Rx Instructions: As directed (DME) FreeStyle Lite Strips Strip See Rx Instructions ea Not Applicable DAILY Qty: 10 0RF Rx Instructions: As directed alcohol swabs Pads, Medicated topical 0RF (DME) blood-glucose meter Kit See Rx Instructions ea Not Applicable BID Qty: 1 0RF Rx Instructions: As directed losartan 50 mg tablet 50 mg PO DAILY 0RF Referrals: Haley Dominguez MD [Primary Care Provider] - 1 week (as needed) Interventions: ED Discharge Assessment Last Done: 07/03/21 14:32 Discharge Date/Time: 07/03/21 14:33
--- NOTE | 2021-07-03 13:00 | PC.NURSE ---
patient walked to room from triage accompanied by direct care staff . patient resides in senior living. direct care staff at bedside .
== END 2021-07-03 14:33 | disposition home or self-care (01) ==
PROVIDERS: Emergency Provider Emergency Medicine; PCP Internal Medicine
DX: S40.011A Contusion of right shoulder, initial encounter (principal); S00.93XA Contusion of unspecified part of head, initial encounter; W01.0XXA Fall on same level from slipping, tripping and stumbling without subsequent striking against object, initial encounter; I10 Essential (primary) hypertension; E11.9 Type 2 diabetes mellitus without complications; E78.5 Hyperlipidemia, unspecified; F03.90 Unspecified dementia, unspecified severity, without behavioral disturbance, psychotic disturbance, mood disturbance, and anxiety; Y93.9 Activity, unspecified; Y92.099 Unspecified place in other non-institutional residence as the place of occurrence of the external cause; Y99.9 Unspecified external cause status; Z79.02 Long term (current) use of antithrombotics/antiplatelets; Z79.899 Other long term (current) drug therapy; Z79.82 Long term (current) use of aspirin
CPT/HCPCS: 70450; 99283; 99284

== ENCOUNTER 2021-07-05 11:25 | Outpatient (REF) | payer MEDICARE, MEDICAID, SELFPAY ==
[2021-07-05 13:35] LABS: PSA,Total (Free>4and<10) 4.79 ng/mL (0.00-4.00)
[2021-07-06 12:12] LABS: Free Prostate Spec Ag 0.7 ng/mL; Percent Free Prostate Spec Ag 13 % (calc) (>25); Prostate Specific Ag Total 5.3 ng/mL (< OR = 4.0)
== END 2021-07-05 11:26 | disposition home or self-care (01) ==
LOC: HO.LAB 11:25
PROVIDERS: PCP Internal Medicine; Visit Provider Urology
DX: Z12.5 Encounter for screening for malignant neoplasm of prostate (principal); N40.0 Benign prostatic hyperplasia without lower urinary tract symptoms
CPT/HCPCS: 36415; 84153; 84154

== ENCOUNTER → 2021-07-13 15:36 | Outpatient (BNVA) | payer MEDICARE, MEDICAID, SELFPAY | PROVIDERS: PCP Internal Medicine; Visit Provider Urology | DX: R97.20 Elevated prostate specific antigen [PSA] (principal); N40.0 Benign prostatic hyperplasia without lower urinary tract symptoms; N32.81 Overactive bladder; E11.9 Type 2 diabetes mellitus without complications; I10 Essential (primary) hypertension; E78.5 Hyperlipidemia, unspecified; K00.0 Anodontia; Z88.8 Allergy status to other drugs, medicaments and biological substances | CPT/HCPCS: 99212 ==

== ENCOUNTER 2021-12-07 07:24 | Outpatient (REF) | payer MEDICARE, MEDICAID, SELFPAY ==
[2021-12-07 08:36] LABS: Alanine Aminotransferase 19 U/L (0-40); Alkaline Phosphatase 108 U/L (39-117); Aspartate Amino Transferase 22 U/L (5-37); Bilirubin Direct < 0.2 mg/dL (0.0-0.5); Bilirubin Total 0.3 mg/dL (0.0-1.0); Cholesterol 162 mg/dL; HDL Cholesterol 54 mg/dL; LDL Cholesterol Calculated 95 mg/dl; Total Protein 7.2 g/dL (6.5-8.0); Triglycerides 65 mg/dL
[2021-12-07 08:59] LABS: Vitamin D 25-OH Total 43.2 ng/mL (>30)
== END 2021-12-07 07:25 | disposition home or self-care (01) ==
LOC: HO.LAB 07:24
PROVIDERS: PCP Internal Medicine; Visit Provider Internal Medicine
DX: E11.59 Type 2 diabetes mellitus with other circulatory complications (principal); R41.89 Other symptoms and signs involving cognitive functions and awareness
CPT/HCPCS: 36415; 80061; 80076; 82140; 82306

== ENCOUNTER 2022-01-11 12:12 | Outpatient (REF) | payer MEDICARE, MEDICAID, SELFPAY ==
[2022-01-11 14:12] LABS: PSA,Total (Free>4and<10) 5.23 ng/mL (0.00-4.00)
[2022-01-12 09:07] LABS: Free Prostate Spec Ag 0.9 ng/mL; Percent Free Prostate Spec Ag 15 % (calc) (>25); Prostate Specific Ag Total 5.9 ng/mL (< OR = 4.0)
== END 2022-01-11 12:13 | disposition home or self-care (01) ==
LOC: HO.LAB 12:12
PROVIDERS: PCP Internal Medicine; Visit Provider Urology
DX: N40.0 Benign prostatic hyperplasia without lower urinary tract symptoms (principal); Z12.5 Encounter for screening for malignant neoplasm of prostate
CPT/HCPCS: 36415; 84153; 84154

== ENCOUNTER → 2022-02-01 10:07 | Outpatient (BNVA) | payer MEDICARE, MEDICAID, SELFPAY | PROVIDERS: PCP Internal Medicine; Visit Provider Urology | DX: N40.0 Benign prostatic hyperplasia without lower urinary tract symptoms (principal); N32.81 Overactive bladder; R97.20 Elevated prostate specific antigen [PSA] | CPT/HCPCS: 51798; 99212 ==

== ENCOUNTER 2022-02-10 10:00 | Outpatient (RCR) | payer MEDICARE, MEDICAID, SELFPAY ==
--- NOTE | 2022-01-12 15:26 | MHC.PT.EP ---
[facility] [place] Office [place] [facility] [place] [facility] [address] Surinder Zimmerman [address] [phone] F: [phone] F: [phone] F: [phone] F: [phone] Physical Therapy Plan of Care Date of Evaluation: Date of Surgery: Diagnosis: Gait disturbance, fall risk Assessment: Patient is a 72 y.o. male who presents to outpatient PT from [facility] with aide, has dementia. Referred to PT for gait disturbance/fall risk. He has some strength deficits in hips and difficulty with static and dynamic balance activities, has steady gait without AD but is stiff, with short steps, some difficulty with quick change in positions, and negotiating obstacles. He can ascend/descend stairs but with railing and uses hands for sit to stand and stand to sit. He will benefit from a course of skilled PT to maintain current level of function and prevent decline, considering the season is changing to where patient will likely become more sedentary. Frequency and Duration: The patient will be seen 2x/week for 4 weeks Short Term Goals: Only [facility] goals are established. Piece Hand Goals: 4 weeks Patient is able to perform exercises daily with UE support and help of caregiver. Patient presents with increased bilateral hip abduction 4+/5 to improve steadiness upon sit to stand. Treatment Plan: Modalities to reduce pain, spasms and effusion. Manual therapy to restore motion and function. Therapeutic exercise to improve strength and flexibility. Neuromuscular re-education for posture and balance. Therapeutic activities to return to functional activities of daily living. Electronically signed by: Feliciano Knight, PT, DPT Please sign and return to therapist. Thank you for your referral.
--- NOTE | 2022-05-30 12:48 | MHC.PT.DC ---
[facility] [place] [facility] [place] [facility] [address] [facility] [address] Surinder Zimmerman [address] [phone] F: [phone] F: [phone] F: [phone] F: [phone] Physical Therapy Discharge Report Diagnosis: Gait disturbance, fall risk Date of Surgery: Date of Evaluation: 01/12/22 Date of Discharge: 05/30/22 Treatments to Date: 6 Cancellations to Date: No Shows to Date: Discharge Status: Patient Elected to Stop Discharge Summary: Patient last seen for treatment on 02/10/22. He did not make any FUP visits after that session and is therefore discharged from PT at this time. Electronically signed by: Feliciano Knight, PT, DPT Please sign and return to therapist. Thank you for your referral.
== END 2022-05-30 12:49 | disposition home or self-care (01) ==
LOC: HO.PT 10:00
PROVIDERS: PCP Internal Medicine; Visit Provider Internal Medicine
DX: R26.9 Unspecified abnormalities of gait and mobility (principal); Z91.81 History of falling
CPT/HCPCS: 97110; 97112; 97116; 97163; 97530

== ENCOUNTER → 2022-02-16 09:54 | Outpatient (BNVA) | payer MEDICARE, MEDICAID, SELFPAY | PROVIDERS: PCP Internal Medicine; Referring Provider Internal Medicine; Visit Provider Physician Assistant | DX: Z12.11 Encounter for screening for malignant neoplasm of colon (principal) | CPT/HCPCS: 99202 ==

== ENCOUNTER 2022-08-10 10:28 | Day surgery (SDC) | payer MEDICARE, MEDICAID, SELFPAY ==
--- NOTE | 2022-08-09 12:05 | P.CONAN_ITS ---
Documented by User: Debbie Naik NP 08/09/22 12:06 HPI - Anesthesia Eval Consult details Narrative: 72yo M for Colonoscopy Dementia - half-way resident [facility] Active Problems Active Problems: All Active Problems (Updated 08/08/22 @ 16:21 by Tammie Hodges RN) Overactive bladder (Acute) Elevated PSA (Acute) Encounter for screening colonoscopy (Acute) BPH (benign prostatic hyperplasia) (Acute) Past Medical History Medical History (Updated 08/08/22 @ 16:21 by Tammie Hodges RN) Abnormal gait Affective disorder Anodontia BPH (benign prostatic hyperplasia) Diabetes Frequency of urination HTN (hypertension) Hyperlipemia Schizophrenia Seizure disorder Tubular adenoma Family History Family History (Updated 02/16/22 @ 10:19 by Pratibha Corona PA-C) Unknown No problems noted. 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 Household Members Other:: half-way Alcohol intake: never Patient Tobacco Use Status: Never used Tobacco Use of substances other than those prescribed or required for medical reasons: No Are you DNR?: No Advance Directives: No Advance Directives Information Provided: Yes Meds Allergies Allergy/AdvReac Type Severity Reaction Status Date / Time lisinopril AdvReac Unknown cough Verified 08/08/22 13:13 Home Medications Medication Instructions Recorded Confirmed Last Taken Type alcohol swabs pad topical 03/30/20 03/30/20 Unknown History aspirin 81 mg tablet,delayed 81 mg PO QAM 03/30/20 08/08/22 Unknown History release atorvastatin 40 mg tablet mg PO 03/30/20 03/30/20 Unknown History blood-glucose meter #1 ea 03/30/20 03/30/20 Unknown History folic acid 1 mg tablet 1 mg PO QAM 03/30/20 08/08/22 Unknown History losartan 50 mg tablet 50 mg PO DAILY 03/30/20 08/08/22 Unknown History omeprazole 20 mg capsule,delayed 20 mg PO DAILY 03/30/20 08/08/22 08/10/22 History release metformin 850 mg tablet 850 mg PO BID 01/12/21 08/08/22 Unknown History ammonium lactate 12 % topical cream 1 appl topical BID 07/13/21 08/08/22 Unknown History ergocalciferol (vitamin D2) 1,250 1,250 mcg PO QWEEK 07/13/21 08/08/22 Unknown History mcg (50,000 unit) capsule (Vitamin D2) lancets 28 gauge (Prodigy Twist #100 ea 07/13/21 Unknown History Top Lancet) acetaminophen 325 mg tablet 650 mg PO QID PRN Pain 02/16/22 08/08/22 Unknown History bacitracin 500 unit/gram topical topical 02/16/22 Unknown History ointment guaifenesin 200 mg tablet 200 mg PO QID 02/16/22 08/08/22 Unknown History phenobarbital 97.2 mg tablet 97.2 mg PO BEDTIME 02/16/22 08/08/22 08/10/22 History phenytoin sodium extended 200 mg 200 mg PO BID 02/16/22 08/08/22 08/10/22 History capsule Exam Exam Date and Time: August 09, 2022 1205 Assessment and Plan Assessment Anesthesia Assessment: Chart Reviewed Documented by User: Alisson Leonardo MD 08/10/22 13:18 [facility] Past Medical History Medical History (Updated 08/08/22 @ 16:21 by Tammie Hodges RN) Abnormal gait Affective disorder Anodontia BPH (benign prostatic hyperplasia) Diabetes Frequency of urination HTN (hypertension) Hyperlipemia Schizophrenia Seizure disorder Tubular adenoma Family History Family History (Updated 02/16/22 @ 10:19 by Pratibha Corona PA-C) Unknown No problems noted. 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 Household Members Other:: half-way Alcohol intake: never Patient Tobacco Use Status: Never used Tobacco Use of substances other than those prescribed or required for medical reasons: No Are you DNR?: No Advance Directives: No Advance Directives Information Provided: Yes Meds Allergies Allergy/AdvReac Type Severity Reaction Status Date / Time lisinopril AdvReac Unknown cough Verified 08/08/22 13:13 Home Medications Medication Instructions Recorded Confirmed Last Taken Type alcohol swabs pad topical 03/30/20 03/30/20 Unknown History aspirin 81 mg tablet,delayed 81 mg PO QAM 03/30/20 08/08/22 Unknown History release atorvastatin 40 mg tablet mg PO 03/30/20 03/30/20 Unknown History blood-glucose meter #1 ea 03/30/20 03/30/20 Unknown History folic acid 1 mg tablet 1 mg PO QAM 03/30/20 08/08/22 Unknown History losartan 50 mg tablet 50 mg PO DAILY 03/30/20 08/08/22 Unknown History omeprazole 20 mg capsule,delayed 20 mg PO DAILY 03/30/20 08/08/22 08/10/22 History release metformin 850 mg tablet 850 mg PO BID 01/12/21 08/08/22 Unknown History ammonium lactate 12 % topical cream 1 appl topical BID 07/13/21 08/08/22 Unknown History ergocalciferol (vitamin D2) 1,250 1,250 mcg PO QWEEK 07/13/21 08/08/22 Unknown History mcg (50,000 unit) capsule (Vitamin D2) lancets 28 gauge (Prodigy Twist #100 ea 07/13/21 Unknown History Top Lancet) acetaminophen 325 mg tablet 650 mg PO QID PRN Pain 02/16/22 08/08/22 Unknown History bacitracin 500 unit/gram topical topical 02/16/22 Unknown History ointment guaifenesin 200 mg tablet 200 mg PO QID 02/16/22 08/08/22 Unknown History phenobarbital 97.2 mg tablet 97.2 mg PO BEDTIME 02/16/22 08/08/22 08/10/22 History phenytoin sodium extended 200 mg 200 mg PO BID 02/16/22 08/08/22 08/10/22 History capsule Exam Airway Mallampati Class: II TM Dist: >3cm Neck ROM: Full Heart: rr Lungs: cta Assessment and Plan Assessment Anesthesia Assessment: Anesthesia Plan Discussed Final Anesthetic Review Family History of Problems with Anesthesia: No History of Problems with Anesthesia: No NPO: Yes ASA Class: II Final Preanesthetic Review: No Changes in Pt Med Stat, Meds/Allgs Chart Reviewed, Consent Obtained/Reviewed and Anes Risks/Benef Reviewed Patient Risk: Low Procedure Risk: Low Anesthetic Plan Anesthetic Plan: MAC: Disposition: Standard PACU
[2022-08-10 11:01] VITALS: BP 143/66; PULSE 60; RESP 18; TEMP 36.4; O2SAT 99
[2022-08-10 11:01] LABS: Glucose, Whole Blood 103 mg/dL (60-115)
[2022-08-10 11:31] VITALS: BMI 29.0
[2022-08-10] MEDS: Lactated Ringers 1,000 ML 100 ML IVCONT (11:33)
--- NOTE | 2022-08-10 11:47 | MHC.SHP ---
Pre-Procedural Eval Section A Date of Service: 08/10/22 Section B Chief Complaint: Encounter for screening for malignant neoplasm Relevant Family History (Specify if Yes): No Relevant Social History: None Present Medications: see Short Stay Collaborative assessment Medical History: Significant History (Abnormal gait Affective disorder Anodontia BPH (benign prostatic hyperplasia) Diabetes Frequency of urination HTN (hypertension) Hyperlipemia Schizophrenia Seizure disorder Tubular adenoma) History of Previous Operations: No relevant previous surgery Allergies: Allergies Allergy/AdvReac Type Severity Reaction Status Date / Time lisinopril AdvReac Unknown cough Verified 08/08/22 13:13 Review of Systems Sugical H&P ROS: Negative: Constitution, Cardiovascular, Respiratory, Neurological, Psychiatric, Hem-Onc, Allergic/Immunologic, Gastrointestinal, Genitourinary, Musculoskeletal, Integumentary, Endocrine and Eyes/Ears/Nose/Throat Exam Surgical H&P Exam: Normal: HEENT, Normal: Heart, Normal: Lungs, Normal: Extremities, Normal: Abdomen, Normal: Skin and Normal: Neurological Plan Diagnosis/Plan: Unchanged I have reviewed the history and physical and performed a pertinent physical examination on my patient. No changes have occurred unless specified. Time Spent With Patient Time: Total time managing care of this patient today ____ minutes.
--- NOTE | 2022-08-10 11:59 | P.OP_ITS ---
Operative Note Operative Note Date of Service: 08/10/22 Narrative: Operative Information Procedure Description: Colonoscopy Indication: screening Anesthesia: MAC COLONOSCOPY Instrument: Olympus variable stiffness pediatric scope 190L Colonoscopy Monitoring: Vital signs and clinical assessment, continuous EKG monitoring, Pulse oximetry, Carbon Dioxide monitoring and blood pressure monitoring were done throughout the procedure. Colon withdrawal time was 10 minutes. Procedure: The patient was placed in the left lateral decubitis position and pre-procedure medications were administered. After a digital rectal examination of the ano-rectum, the video colonoscope was inserted into the rectum and advanced through the colon to the cecum/TI. The colonoscope was slowly withdrawn in a retrograde panoramic fashion and the colon mucosa was carefully examined including a retroflexed view of the rectum. Findings and interventions are described below. Procedure Difficulty: moderate, pressure applied to abdomen Findings: Terminal Ileum-normal Cecum:normal Ascending Colon: normal Transverse Colon - x 2 sessile polyps 10 mm removed with cold snare Descending Colon: x 1 sessile polyp 10 mm removed with cold forceps Sigmoid Colon: normal Rectum: Retroflexion with small internal hemorrhoids, grade I Anorectum - normal Colon preparation: [place] Bowel Preparation Scale Right colon; 1-2 Transverse colon: 2- Left colon; 1-2 (0 = Unprepared colon segment with mucosa not seen due to solid stool that cannot be cleared. 1 = Portion of mucosa of the colon segment seen, but other areas of the colon segment not well seen due to staining, residual stool and/or opaque liquid. 2 = Minor amount of residual staining, small fragments of stool and/or opaque liquid, but mucosa of colon segment seen well. 3 = Entire mucosa of colon segment seen well with no residual staining, small fragments of stool or opaque liquid) Impression and Post Procedure Diagnosis: polyps internal hemorrhoids Plan: High fiber diet leaflet Avoid straining at stool, epsom salts and sitz bath, anusol supps or cream Repeat Colonoscopy in 1-2 years due to fair prep or earlier if clinically indicated Above findings were reviewed with the patient and relevant handouts were provided if indicated.
[2022-08-10 12:45] VITALS: BP 104/54; PULSE 71; RESP 16; TEMP 36.8; O2SAT 98
[2022-08-10 13:00] VITALS: BP 125/59; PULSE 67; RESP 13; TEMP 36.8; O2SAT 98
--- NOTE | 2022-08-10 13:15 | P.EN_ITS ---
not bilable Event Note Date of Service: 09/01/22 Event Note: nnnnnnnnnnnnppppppppp n n n n n n n n n n n n Time Spent With Patient Time: Total time managing care of this patient today ____ minutes.
== END 2022-08-10 13:53 | disposition home or self-care (01) ==
PROVIDERS: PCP Internal Medicine; Visit Provider Internal Medicine Gastroenterology
PROC: 0DJD8ZZ Inspection of Lower Intestinal Tract, Via Natural or Artificial Opening Endoscopic (ICD-10-PCS; CPT 45378; principal; 2022-08-10 12:00)
DX: Z12.11 Encounter for screening for malignant neoplasm of colon (principal); Z86.010 Personal history of colon polyps; D12.3 Benign neoplasm of transverse colon; D12.4 Benign neoplasm of descending colon; K64.0 First degree hemorrhoids; K00.0 Anodontia; I10 Essential (primary) hypertension; E08.65 Diabetes mellitus due to underlying condition with hyperglycemia; E78.5 Hyperlipidemia, unspecified; G40.909 Epilepsy, unspecified, not intractable, without status epilepticus; F20.9 Schizophrenia, unspecified; F03.90 Unspecified dementia, unspecified severity, without behavioral disturbance, psychotic disturbance, mood disturbance, and anxiety; F39 Unspecified mood [affective] disorder; N40.1 Benign prostatic hyperplasia with lower urinary tract symptoms; R35.0 Frequency of micturition; R26.9 Unspecified abnormalities of gait and mobility; R29.6 Repeated falls; Z79.84 Long term (current) use of oral hypoglycemic drugs; Z79.82 Long term (current) use of aspirin; Z88.8 Allergy status to other drugs, medicaments and biological substances; Z79.899 Other long term (current) drug therapy
CPT/HCPCS: 45385; 45380; 82947; 88305; 99499

== ENCOUNTER → 2022-08-25 12:35 | Outpatient (BNVA) | payer MEDICARE, MEDICAID, SELFPAY | PROVIDERS: PCP Internal Medicine; Visit Provider Physician Assistant | DX: D12.6 Benign neoplasm of colon, unspecified (principal); K64.8 Other hemorrhoids | CPT/HCPCS: Q3014 ==

== ENCOUNTER 2022-09-12 13:52 | Outpatient (REF) | payer MEDICARE, MEDICAID, SELFPAY ==
[2022-09-12 15:24] LABS: PSA,Total (Free>4and<10) 4.53 ng/mL (0.00-4.00)
[2022-09-14 10:39] LABS: Free Prostate Spec Ag 0.4 ng/mL; Percent Free Prostate Spec Ag 10 % (calc) (>25)
== END 2022-09-12 13:53 | disposition home or self-care (01) ==
LOC: HO.LAB 13:52
PROVIDERS: PCP Internal Medicine; Visit Provider Urology
DX: R97.20 Elevated prostate specific antigen [PSA] (principal); Z12.5 Encounter for screening for malignant neoplasm of prostate
CPT/HCPCS: 36415; 84153; 84154

== ENCOUNTER → 2022-09-16 14:11 | Outpatient (BNVA) | payer MEDICARE, MEDICAID, SELFPAY | PROVIDERS: PCP Internal Medicine; Visit Provider Urology | DX: N40.0 Benign prostatic hyperplasia without lower urinary tract symptoms (principal); R97.20 Elevated prostate specific antigen [PSA] | CPT/HCPCS: 51798; 99212 ==

== ENCOUNTER 2023-02-06 12:41 | Emergency (ER) | payer MEDICARE, MEDICAID, SELFPAY ==
--- NOTE | ~2023-02-06 | CT_ITS ---
EXAMINATION: CT HEAD WITHOUT CONTRAST CT CERVICAL SPINE WITHOUT CONTRAST CLINICAL INFORMATION: Trauma. COMPARISON: Fall. Hit head. TECHNIQUE: Contiguous axial imaging was performed from the skull base to vertex without intravenous administration of contrast. Contiguous axial imaging was performed from the upper chest through the skull base without intravenous administration of contrast. Coronal and sagittal reformats were obtained at the acquisition workstation. This CT examination was performed using dose optimization techniques as appropriate, variously including the following: *Automated exposure control. *Adjustment of mA and/or kV according to patient size (this includes techniques or standardized protocols for targeted exams where dose is matched to indication/reason for exam; i.e. extremities or head). *Use of iterative reconstruction technique. DLP: 1356 mGy-cm FINDINGS: Head: There are regions of chronic encephalomalacia within the left greater than right frontotemporal lobes with associated volume loss. No additional loss of garcia-white matter differentiation. No evidence of acute intracranial hemorrhage. Scattered and partially confluent hypoattenuation in the periventricular and deep white matter are consistent with moderate microangiopathy. Proportional prominence of the ventricles and sulcal spaces without evidence of obstructive hydrocephalus. No abnormal mass effect or midline shift. No extra-axial fluid collections. No acute soft tissue or osseous abnormalities. Moderate mucosal thickening of the paranasal sinuses, most notably involving the left maxillary sinus. The mastoid air cells and middle ear cavities are clear. Cervical Spine: The atlantooccipital and atlantoaxial articulations remain well aligned. Moderate degenerative arthropathy of the atlantodental articulation. There is anatomic alignment of the vertebral bodies and posterior elements. No evidence of acute fracture or subluxation. The vertebral body heights are maintained. Advanced degenerative disc disease at C4-C5 with prominent disc-osteophyte complex information. Moderate degenerative disc disease at all additional levels from C3-C7. There appears to be at least moderate spinal canal stenoses at C3-C4 and C4-C5. Prominent bridging anterior osteophytosis from C3-C7. Facet and uncovertebral joint arthropathy leads to osseous encroachment on the neural foramina from C3-T1. Prominent bridging anterior osteophytosis from C3-C7. There is no prevertebral soft tissue swelling. The thyroid gland and remaining cervical soft tissues are within normal limits. The lung apices demonstrate no abnormalities. CT/CT cervical spine wo IV con IMPRESSION: 1. No evidence of acute intracranial hemorrhage or edematous territorial infarction. 2. Regions of chronic encephalomalacia within the left greater than right frontotemporal lobes. Moderate underlying microangiopathy and generalized cerebral volume loss. 3. No evidence of acute fracture or traumatic subluxation of the cervical spine. 4. Advanced multilevel degenerative spondyloarthropathy of the cervical spine. Most notably on this limited exam without intrathecal contrast, there appears to be at least moderate spinal canal stenoses at C3-C4 and C4-C5.
[2023-02-06 12:46] VITALS: BP 148/76; BP 148/78; PULSE 71; PULSE 75; RESP 20; TEMP 5391.1; TEMP 9736; O2SAT 97; O2SAT 98; BMI 31.9
--- NOTE | 2023-02-06 13:42 | ED_ITS ---
HPI - Fall General Chief Complaint: Fall Stated Complaint: wit fall,hit head,-loc per ems Time Seen by Provider: 02/06/23 13:28 Source: EMS Mode of arrival: EMS History of Present Illness HPI Narrative: This is 73 years old male with history of dementia, schizophrenia, seizure disorder, diabetes presented to the emergency department after a mechanical fall. He was at the day program he was in the sitting position and he fell from the chair. He was sent here for evaluation of possible head injury patient stated feels well MD complaint: fall Onset (ago): hour(s) (2) Fall witnessed: yes, by living facility staff Place fall occurred: [facility] ([facility] Loss of consciousness: none Prolonged down time: no Symptoms prior to fall: none Context: tripped/slipped Related Data Home Medications Medication Instructions Recorded Confirmed alcohol swabs pad topical 03/30/20 03/30/20 aspirin 81 mg tablet,delayed 81 mg PO QAM 03/30/20 08/08/22 release atorvastatin 40 mg tablet mg PO 03/30/20 03/30/20 blood-glucose meter #1 ea 03/30/20 03/30/20 folic acid 1 mg tablet 1 mg PO QAM 03/30/20 08/08/22 losartan 50 mg tablet 50 mg PO DAILY 03/30/20 08/08/22 omeprazole 20 mg capsule,delayed 20 mg PO DAILY 03/30/20 08/08/22 release metformin 850 mg tablet 850 mg PO BID 01/12/21 08/08/22 ammonium lactate 12 % topical cream 1 appl topical BID 07/13/21 08/08/22 ergocalciferol (vitamin D2) 1,250 1,250 mcg PO QWEEK 07/13/21 08/08/22 mcg (50,000 unit) capsule (Vitamin D2) lancets 28 gauge (Prodigy Twist #100 ea 07/13/21 Top Lancet) acetaminophen 325 mg tablet 650 mg PO QID PRN Pain 02/16/22 08/08/22 bacitracin 500 unit/gram topical topical 02/16/22 ointment guaifenesin 200 mg tablet 200 mg PO QID 02/16/22 08/08/22 phenobarbital 97.2 mg tablet 97.2 mg PO BEDTIME 02/16/22 08/08/22 phenytoin sodium extended 200 mg 200 mg PO BID 02/16/22 08/08/22 capsule Previous Rx's Medication Instructions Recorded finasteride 5 mg tablet 5 mg PO DAILY 90 days #90 tabs 09/16/22 tolterodine 4 mg capsule,extended 4 mg PO BID 90 days #180 caps 09/16/22 release 24 hr terazosin 1 mg capsule 1 mg PO DAILY 90 days #90 caps 10/05/22 Allergies Allergy/AdvReac Type Severity Reaction Status Date / Time lisinopril AdvReac Unknown cough Verified 09/16/22 14:40 Review of Systems Review of Systems: Yes Unobtainable due to mental condition PMFSH Past Medical History Medical History Abnormal gait Anodontia HTN (hypertension) Diabetes Affective disorder Schizophrenia Tubular adenoma Hyperlipemia Seizure disorder BPH (benign prostatic hyperplasia) Frequency of urination Surgical History Hx of colonoscopy Family History Family History Unknown No problems noted. 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 Members Other:: [facility] Alcohol intake: never Patient Tobacco Use Status: Never used Tobacco Advance Directives: Yes Advance Directives on File: Yes Advance Directives Date on File: 08/11/22 Physical Exam Vital Signs: Vital Signs: Last Vital Signs Temp 97.7 F 02/06/23 14:17 Pulse 75 02/06/23 14:17 Resp 16 02/06/23 14:17 BP 157/77 H 02/06/23 14:17 Pulse Ox 100 02/06/23 14:17 O2 Del Method Room Air 02/06/23 14:17 BMI result Body Mass Index 31.9 Const: General: cooperative Nutritional Appearance: well nourished HEENT: Head: Yes normal to inspection Face and sinus: Yes normal facial exam Neck: Neck: Yes normal visual inspection and Yes full ROM Chest: Chest palpation & inspection: normal inspection of the chest Resp: Effort & Inspection: normal respiratory effort Auscultation: clear to auscultation bilaterally Cardio: Jugular venous distension: no JVD Rate: regular rate Rhythm: regular rhythm GI: Inspection: Yes normal to inspection Palpation (GI): Soft to palpation, not firm and nontender Skin: General skin exam: no rashes or lesions noted Neuro: Cranial nerves: Yes CN's II-XII intact bilaterally Course Reevaluation(s) Reevaluation #1: signed out to Dr Tobin imaging pending Time: 16:23 Medical Decision Making Medical Decision Making [facility] Narrative: This is an 73 years old male presented to the emergency department after a fall possible head injury will obtain imaging of the brain and reassessed Differential Diagnosis Differential Diagnoses: The differential diagnosis associated with the presentation includes Subdural hematoma/epidural hematoma/concussion Discharge Plan Discharge Clinical Impression: Fall, Head injury Patient Disposition: Still a Patient Prescriptions: No Action tolterodine 4 mg capsule,extended release 24hr 4 mg PO BID 90 Days Qty: 180 1RF terazosin 1 mg capsule 1 mg PO DAILY 90 Days Qty: 90 1RF omeprazole 20 mg capsule,delayed release(DR/EC) 20 mg PO DAILY atorvastatin 40 mg tablet PO folic acid 1 mg tablet 1 mg PO QAM aspirin 81 mg tablet,delayed release (DR/EC) 81 mg PO QAM alcohol swabs Pads, Medicated topical (DME) blood-glucose meter Kit See Rx Instructions Not Applicable BID Qty: 1 Rx Instructions: As directed losartan 50 mg tablet 50 mg PO DAILY metformin 850 mg tablet 850 mg PO BID ammonium lactate 12 % cream 1 appl topical BID ergocalciferol (vitamin D2) [Vitamin D2] 1,250 mcg (50,000 unit) capsule 1,250 mcg PO QWEEK (DME) lancets [Prodigy Twist Top Lancet] 28 gauge misc See Rx Instructions .ROUTE .MEDSUPPLY Qty: 100 Rx Instructions: As directed finasteride 5 mg tablet 5 mg PO DAILY 90 Days Qty: 90 1RF acetaminophen 325 mg tablet 650 mg PO QID PRN (Reason: Pain) bacitracin 500 unit/gram ointment topical guaifenesin 200 mg tablet 200 mg PO QID phenobarbital 97.2 mg tablet 97.2 mg PO BEDTIME phenytoin sodium extended 200 mg capsule 200 mg PO BID
[2023-02-06 14:17] VITALS: BP 157/77; PULSE 75; RESP 16; TEMP 36.5; O2SAT 100
== END 2023-02-06 17:48 | disposition home or self-care (01) ==
PROVIDERS: Emergency Provider Emergency Medicine
DX: S09.90XA Unspecified injury of head, initial encounter (principal); R51.9 Headache, unspecified; M54.2 Cervicalgia; W07.XXXA Fall from chair, initial encounter; Y93.9 Activity, unspecified; Y92.9 Unspecified place or not applicable; Y99.9 Unspecified external cause status
CPT/HCPCS: 70450; 72125; 99283; 99284

== ENCOUNTER 2023-02-08 12:22 | Outpatient (REF) | payer MEDICARE, MEDICAID, SELFPAY ==
--- NOTE | ~2023-02-08 | XR_ITS ---
EXAMINATION: XR CHEST CLINICAL INFORMATION: Cough COMPARISON: None TECHNIQUE: 2 views of the chest were obtained. FINDINGS: The cardiac and mediastinal contours are normal. The lung volumes are low. The lungs are clear. No pleural effusion or pneumothorax. Degenerative changes of the spine. XR/XR chest 2V IMPRESSION: No evidence for acute disease in the chest.
== END 2023-02-08 12:23 | disposition home or self-care (01) ==
LOC: HO.HHCX 12:22
PROVIDERS: Visit Provider Internal Medicine
DX: R05.3 Chronic cough (principal)
CPT/HCPCS: 71046

== ENCOUNTER 2023-04-11 08:41 | Outpatient (REF) | payer MEDICARE, MEDICAID, SELFPAY ==
[2023-04-13 10:44] LABS: Free Prostate Spec Ag 0.4 ng/mL; Percent Free Prostate Spec Ag 8 % (calc) (>25); Prostate Specific Ag Total 5.1 ng/mL (< OR = 4.0)
== END 2023-04-11 08:42 | disposition home or self-care (01) ==
LOC: HO.LAB 08:41
PROVIDERS: PCP Internal Medicine; Visit Provider Urology
DX: Z12.5 Encounter for screening for malignant neoplasm of prostate (principal); R97.20 Elevated prostate specific antigen [PSA]
CPT/HCPCS: 36415; 84153; 84154

== ENCOUNTER 2023-04-20 12:04 | Outpatient (AMB) | payer MEDICARE, MEDICAID, SELFPAY ==
--- NOTE | 2023-04-20 12:04 | MHC.OFFVIS ---
Intake Intake Visit Reasons: PSA Follow Up(SET) Allergies lisinopril Adverse Reaction (Unknown, Verified 09/16/22 14:40) cough HPI HPI Comments History of Present Illness Details Brady is a pleasant male. He is a patient of Dr. Dominguez. He is seen for the following urologic conditions - BPH - overactive bladder - elevated PSA Telemedicine Evaluation 15 min Consultation Doximity Ihsan Video attempted Discussed with caregiver PSA continuing to rise Discussed potential prostate biopsy Six-month follow-up Now lives in a longterm. Had previously been cared for by brother. Background of developmental delay and seizure. Nocturia 2-3 times per evening Continue combination therapy finasteride, terazosin 1 mg and tolterodine 4 mg b.i.d. Lower urinary tract symptoms Longstanding weakness of stream and urinary frequency Underwent laser prostatectomy with bladder neck incision 2018 PSA- historically in the 3 range - 01/21 5.2, 07/23 4.8, 01/22 5.9 15%, 09/23 4.0 10%, 04/26 5.1 8% Postprocedure urgency and frequency Good response to combination terazosin 1 mg and tolterodine 4 mg b.i.d. Remains on finasteride for large PSA Continue current therapy review in 6 months [facility] Medical History Abnormal gait Anodontia HTN (hypertension) Diabetes Affective disorder Schizophrenia Tubular adenoma Hyperlipemia Seizure disorder BPH (benign prostatic hyperplasia) Frequency of urination Surgical History Hx of colonoscopy Family History Unknown No problems noted. 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 Household Members Other:: longterm Alcohol intake: never Patient Tobacco Use Status: Never used Tobacco Advance Directives Date on File: 08/11/22 Review of Systems Const All systems reviewed & are unremarkable except as noted in HPI and below Reports no additional complaints Resp Reports no additional complaints GI Reports no additional complaints Reports as per HPI Musc Reports no additional complaints Physical Exam Telemedicine evaluation Appropriate responses Regular breathing rate and rhythm HEENT Head: Yes normal to inspection Ears: hearing grossly normal bilaterally Eyes General: appearance normal, both eyes and all related structures Neck Neck: Yes normal visual inspection Chest Chest palpation & inspection: normal inspection of the chest Resp Effort & Inspection: normal respiratory effort and able to speak in complete sentences Assessment & Plan Assessment & Plan (1) Overactive bladder: Code(s): N32.81 - Overactive bladder (2) Elevated PSA: Code(s): R97.20 - Elevated prostate specific antigen [PSA] (3) BPH (benign prostatic hyperplasia): Code(s): N40.0 - Benign prostatic hyperplasia without lower urinary tract symptoms Plan Six-month follow-up PSA, office Orders: Orders PSA,Total (Free>4and<10) 6 Months R97.20 - Elevated prostate specific antigen [PSA] Medications: Changed From finasteride 5 mg PO DAILY 30 days 30 tabs 0RF R97.20 - Elevated prostate specific antigen [PSA] To finasteride 5 mg PO DAILY 90 days 90 tabs 1RF R97.20 - Elevated prostate specific antigen [PSA] From tolterodine ER 4 mg PO BID 30 days 60 caps 0RF R97.20 - Elevated prostate specific antigen [PSA] To tolterodine ER 4 mg PO DAILY 90 days 90 caps 1RF R97.20 - Elevated prostate specific antigen [PSA] From terazosin 1 mg PO DAILY 30 days 30 caps 0RF To terazosin 1 mg PO DAILY 90 days 90 caps 1RF Patient Instructions: Imaging studies, laboratory and physical exam results were discussed and reviewed in detail. No major barriers to patient understanding were identified. An opportunity to ask questions regarding the treatment plan was provided. All questions were answered. The patient expressed understanding and agreement with the above treatment plan. The patient is aware they should contact our office by phone for worsening of their current condition or the appearance of new urologic symptoms. Compliance is encouraged with any medications and followup testing that is ordered. It is a privilege to participate in the urologic care of your patient. If you have any questions or concerns regarding treatment for the above conditions, or other urologic issues, please do not hesitate to contact me. The office telephone contact is [phone]. This note is constructed using voice recognition software. While every effort has been made to ensure accuracy transcription coordinator errors may have been included. Yours sincerely, Dr Abbe Evans MD, [facility] - Urology Providers of Expert, Compassionate Care for the Genitourinary System Telehealth Telehealth Location of provider rendering services: practice address Location of patient: address on file Patient Identification confirmed using: Name, : Yes Telehealth method: video Patient verbally consented to treatment: Yes Patient verbally consented to billing insurance company: Yes Patient informed of any privacy concerns related to visit: Yes Coding Level of Care Code Tele Est Pt Level 3 (52971) Diagnoses Overactive bladder N32.81 Elevated PSA R97.20 BPH (benign prostatic hyperplasia) N40.0
== END 2023-04-20 12:29 | disposition home or self-care (01) ==
LOC: HO.HUSH 12:04
PROVIDERS: PCP Internal Medicine; Visit Provider Urology
DX: N32.81 Overactive bladder (principal); R97.20 Elevated prostate specific antigen [PSA]; N40.0 Benign prostatic hyperplasia without lower urinary tract symptoms
CPT/HCPCS: 99213

== ENCOUNTER → 2023-04-20 12:04 | Outpatient (BNVA) | payer MEDICARE, MEDICAID, SELFPAY | PROVIDERS: PCP Internal Medicine; Visit Provider Urology ==

== ENCOUNTER 2023-05-03 07:56 | Outpatient (REF) | payer MEDICARE, MEDICAID, SELFPAY ==
--- NOTE | ~2023-05-03 | FL_ITS ---
EXAMINATION: FL BARIUM SWALLOW CLINICAL INFORMATION: Dysphagia COMPARISON: None TECHNIQUE: Fluoroscopic air contrast upper GI examination was performed utilizing standard techniques with thin and thick barium and effervescent granules. Numerous spot images were obtained. FINDINGS: Lateral cine images of the oropharynx and hypopharynx demonstrate swallow mechanism with slightly impaired epiglottic inversion and soft palate elevation. There is a small amount of immediate laryngeal penetration, extending to the true cords and subglottic trachea with initial swallow that partially cleared with coughing. Subsequent swallows demonstrated trace laryngeal penetration above the cords. Persistent piriform sinus and vallecular pooling of contrast was evident. No nasopharyngeal reflux present. Hypopharyngeal structures appear normal without evidence of mass or diverticulum. There was mild cricopharyngeal achalasia. Ventral bridging osteophyte noted at the C3/C4 level is seen and appears to be causing minimal indentation upon on the lower hypopharynx. This is likely not clinically significant. Smaller ventral osteophytes bridging C4-C5, and C5-C6. The patient is edentulous. Dual and single contrast images of the esophagus demonstrate a mildly patulous esophagus. Mucosal pattern appears normal, without evidence of stricture, mass, or ulcerations identified. Esophageal peristalsis is mildly disorganized. A small type I hiatal hernia is present. No significant gastroesophageal reflux was seen during the course of the examination and on reflux views. Stomach was evaluated on this exam. FLUOROSCOPY TIME: 3 minutes 58 seconds Number of Spot Images: 5 Number of Cine: 9 DOSE AREA PRODUCT: 1735 uGy-m2 (microgray-meter squared) FL/FL barium swallow IMPRESSION: 1. Small amount of laryngeal and subglottic aspiration on thick barium with initial swallow that partially cleared with coughing. Subsequent subsequent swallows demonstrated mild laryngeal penetration above the true vocal cords. No significant tracheal aspiration seen. 2. C3-C4 bridging osteophyte ventrally causing minimal indentation upon the lower hypopharynx. From the appearance, it appears this is likely minimally clinically significant, if at all. Mild cricopharyngeal achalasia is noted, episodic. Persistent pooling of contrast in the vallecula and piriform sinuses. 3. Patulous esophagus with mildly disorganized peristalsis consistent with esophageal dysmotility. 4. Small type I hiatal hernia 5. Slightly impaired hypopharyngeal phase of swallow, most likely secondary to neurologic cause. 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 Consider correlating with MRI to exclude multisystem atrophy versus multi-infarct causation. 6. Speech pathology consultation may also be of benefit. This procedure was performed by Yvon Chavez PA-C, and supervised by Dr. Alejo
== END 2023-05-03 07:57 | disposition home or self-care (01) ==
LOC: HO.XRAY 07:56
PROVIDERS: PCP Internal Medicine; Visit Provider Internal Medicine
DX: R13.10 Dysphagia, unspecified (principal)
CPT/HCPCS: 74220

== ENCOUNTER → 2023-05-03 07:59 | Outpatient (BNV) | payer MEDICARE, MEDICAID, SELFPAY | PROVIDERS: PCP Internal Medicine; Visit Provider Radiology Diagnostic Radiology | DX: R13.10 Dysphagia, unspecified (principal) | CPT/HCPCS: 74246 ==

== ENCOUNTER 2023-06-19 14:32 | Outpatient (REF) | payer MEDICARE, MEDICAID, SELFPAY ==
--- NOTE | ~2023-06-19 | FL_ITS ---
EXAMINATION: Modified Barium Swallow CLINICAL INFORMATION: Dysphagia. COMPARISON: None. TECHNIQUE: Modified barium swallow was performed under lateral fluoroscopy with patient in standing position. Barium mixed with solids and liquids of varying consistencies was administered by the speech pathologist. The exam was recorded in the fluoroscopy suite. FINDINGS: Laryngeal penetration was seen with honey thick, nectar thick, and thin consistency barium. No aspiration was seen. FLUOROSCOPY TIME: 1 minute 31 seconds Number of Spot Images: Single spot image hold. DOSE AREA PRODUCT: 770.9 uGy-m2 (microgray-meter squared) FL/FL barium swallow modified IMPRESSION: Laryngeal penetration was seen with honey thick, nectar thick, and thin consistency barium. No subglottic aspiration was seen during this examination. Refer to the full speech therapy report for further clarification. This procedure was performed by Yvon Chavez PA-C, and supervised by Dr. Alejo
--- NOTE | 2023-06-20 15:48 | MHC.SL.IMP ---
Date of Plan of Treatment: 06/19/23 Onset of Symptoms/Illness: 05/03/23 Date Treatment Started: 06/19/23 Admitting Diagnosis: Dysphagia Primary Speech & Language Diagnosis: R13.12 Oropharyngeal Phase Dysphagia Reason for Today's Visit: 95547 Modified Barium Swallow Study Pre-evaluation Dietary Consistencies: Pureed (NDD1) Pre-evaluation Liquid Consistency: Thickened Medical History: Modified Barium Swallow Study Fluoroscopic Evaluation of Swallowing Function CPT Code 38664 Evaluation Year: 2023 Reason for Study: Difficulty swallowing Referring Physician: Haley Dominguez MD Evaluating Clinician: Tory Lion MA, CCC-READING INTERVENTIONIST Study Number: 1 Patient Name: Brady Lott Status: Outpatient, Ambulatory Age: 73 Gender: Male Medical History Medical History Abnormal gait Anodontia HTN (hypertension) Diabetes Affective disorder Schizophrenia Tubular adenoma Hyperlipemia Seizure disorder BPH (benign prostatic hyperplasia) Frequency of urination Surgical History Hx of colonoscopy Current (pre-evaluation) Intake/Diet: Route: PO Diet Grade: Puree Liquid Consistencies: Thickened Liquids Pre-Study Functional Oral Intake Scale (FOIS): 5- Total oral intake of multiple consistencies requiring special preparation Pain: None reported at time of study SUBJECTIVE: Patient is a 73 year old male with history of schizophrenia, abnormal gait, and seizure disorder. Patient was referred for a modified barium swallow study by his primary care physician, Haley Dominguez MD, after he aspirated on thick barium during his barium swallow x-ray on 05/03/23. There was also C3-C4 osteophyte noted compressing on the lower pharyngeal area. Patient was accompanied to this exam by a staff member from his senior care, Beatrice. Beatrice reports patient eats pureed foods and thickened liquids at home. He is able to feed himself and is not supervised at meals. Oral Motor Exam Facial Symmetry: Symmetrical Mouth Occlusion: Normal Oral-Facial Teeth Characteristics: Edentulous Oral-Facial Smile (Lips) Description: Normal Oral-Facial Puff Cheeks Description: Normal Tongue Size: Normal Tongue Excursion Description: Normal Tongue Range of Movement Description: Normal Tongue Speed of Movement Description: Normal Tongue Strength of Movement (against opposing pressure): Tongue Movement Characteristics: Normal/Absent Food and Liquid Trials: Oral Impairment: Lip Closure: Did not test Oral Impairment: Tongue Control During Bolus Hold: Did not test Oral Impairment: Bolus Preparation/Mastication: Did not test Oral Impairment: Bolus Transport/Lingual Motion: 1= Delayed initiation of tongue motion Oral Impairment: Oral Residue: 1=Trace residue lining oral structures Oral Impairment:Initiation of Pharyngeal Swallow: 3=Bolus head in pyriforms Pharyngeal Impairment: Soft Palate Elevation: 0=No bolus between soft palate (SP)/pharyngeal wall (PW) Pharyngeal Impairment: Laryngeal Elevation: 0=Complete superior movement of thyroid cartilage (see description) Pharyngeal Impairment: Anterior Hyoid Excursion: 0=Complete anterior movement Pharyngeal Impairment: Epiglottic Movement: 1=Partial inversion Pharyngeal Impairment: Laryngeal Vestibular Closure:: 1=Incomplete: narrow column air/contrast in laryngeal vestibule Pharyngeal Impairment: Pharyngeal Stripping Wave: 1=Present: diminished Pharyngeal Impairment: Pharyngeal Contraction: Did not test Pharyngeal Impairment: Pharyngoesophageal Segment Openin=Partial distention/partial duration: partial obstruction of flow Pharyngeal Impairment: Tongue Base (TB) Retraction: 1=Trace column of contrast/air between TB and posterior PW Pharyngeal Impairment: Pharyngeal Residue: 1=Trace residue within or on pharyngeal structures Pharyngeal Impairment: Esophageal Clearance Upright Position: Did not test Impressions and Recommendations OBJECTIVE: Time-out: performed at 14:45 Evaluation Start: 14:30; Stop: 14:35 Patient Positioning: Standing Viewing Planes: LATERAL ONLY Contrast: MBSImP? Standardized Protocol using commercially prepared, standardized Barium viscosities, including: Varibar? THIN LIQUID (40% w/v, <15 cps) , Varibar? NECTAR (40% w/v, <150-450 cps) , Varibar? THIN HONEY (40% w/v, <800-1800 cps) MBSImP ID: [id number] MBSImP Results: Lip closure for intraoral bolus containment could not be assessed due to logistical reasons not related to physiologic impairment. Tongue control during bolus hold could not be assessed due to logistical reasons not related to physiologic impairment. Bolus preparation and mastication received the highest impairment score; solid not given due to patient safety concerns related to oral impairment. Bolus transport/lingual motion demonstrated delayed initiation of tongue motion. Oral residue was a trace, lining oral structures. Initiation of the pharyngeal swallow occurred when the bolus head was in the pyriform sinuses. Soft palate elevation resulted in no bolus between the soft palate and the pharyngeal wall. Laryngeal elevation demonstrated complete superior movement of the thyroid cartilage with complete approximation of the arytenoids to the epiglottic petiole. Anterior hyoid excursion demonstrated complete anterior movement. Epiglottic movement resulted in partial inversion. Laryngeal vestibular closure was incomplete, with a narrow column of air/contrast noted within the laryngeal vestibule at the height of the swallow. Pharyngeal stripping wave was present, but diminished. Pharyngeal contraction could not be determined due to logistical reasons not related to physiologic impairment. Pharyngoesophageal segment opening demonstrated partial distension/partial duration, with partial obstruction of bolus flow. Tongue base retraction allowed a trace column of contrast or air between the retracted tongue base and the posterior pharyngeal wall. Pharyngeal residue was a trace within or on pharyngeal structures. Esophageal clearance in the upright position could not be assessed due to logistical reasons not related to physiologic impairment. Oral Impairment Score: 7 (absence of score, component 1component 2) Pharyngeal Impairment Score: 4 (absence of score, component 13) Esophageal Impairment Score: --- (absence of score, component 17) Laryngeal Penetration and Aspiration: Penetration was observed in today's study. Honey-thick, [place]-thick, Thin Contrast entered the airway, remained above the vocal folds, and were ejected from the airway. Summary: This exam was performed by the speech pathologist and the radiologist. Pt was standing for lateral view and trialed thin, nectar thick, honey thick, and puree consistencies. Patient demonstrated good labial closure with no spillage beyond the leo border. Mildly delayed lingual transport. Pharyngeal swallow trigger was also delayed, initiated at the level of the pyriforms. There was trace residue coating the tongue and floor of mouth post-swallow. No nasopharyngeal reflux. Incomplete epiglottic inversion and incomplete laryngeal vestibular closure with resultant penetration. With all liquid consistencies, there was penetration above the vocal folds during the swallow, which spontaneously ejected from the airway. With thickened liquids, note increased coating of the posterior epiglottis. No evidence of aspiration during this exam. There was trace residue coating tongue base, valleculae, pyriforms, and posterior pharyngeal wall, which cleared with subsequent swallows. Liquid Intake Recommendation: Thin Liquid Intake Strategies: Small Sips, No Straws Dietary Recommendations: Pureed (NDD1) Medication Administration: Crushed with Puree Please contact the pharmacy regarding appropriate crushable or liquid drug formulations that are available whenever modified delivery is recommended. Compensatory Strategies Recommended: Sitting Upright (90 deg), Double Swallow, No Straw, Small Bites and Sips, Rate of Ingestion Change Supervision during eating and or drinking: Total Supervision (1:1) Recommendations: Intake Recommendations: Route: PO Diet Grade: Puree Liquid Consistencies: Thin Post-Study Functional Oral Intake Scale (FOIS): 5- Total oral intake of multiple consistencies requiring special preparation Slowed and delayed oral phase. Incomplete epiglottic inversion and partial laryngeal vestibular closure. There was trace penetration above the vocal folds with thin, nectar thick, and honey thick consistencies. No evidence of aspiration during this exam. Trace residue noted in the oral and pharyngeal cavities, cleared with subsequent swallows. Patient could potentially tolerate more advanced textures, but would need re-assessment should his dentures be replaced. At this time, patient is recommended to continue on pureed diet given his edentulous status, and thin liquids. The following strategies are recommended to maximize safety: -Take one small bite at a time, clear oral cavity before taking more bites -Dry swallow between bites to promote oral and pharyngeal clearance -Take small, individual sips of liquid by teaspoon or cup, avoid the use of straws -Maintain 90 degree position during PO intake and for at least 30 minutes afterwards Therapy Recommendations: Based on results of this exam, continued speech therapy services are not warranted at this time. Please re-refer if there are any changes or worsening of symptoms. Clinician - Supplemental, Miscellaneous Communication: It is important to note MBSS objective studies are snapshots in time and Patient function might vary with factors such as time of day or concomitant medical conditions. For this reason, the final treatment plan for this patient should rest with their medical care team. Additional recommendations should be considered with the totality of the Patient in mind. Thank for the opportunity to participate in the care of this patient. If you have any questions about the content of this report, please contact the [facility]. Education: Education regarding findings from today's study and plans for therapy were provided to Patient and family/caregiver through Verbal Instruction. Understanding was expressed by the Patient and family/caregiver. Supervisor [employer] Clinician/Clinical Fellow: No Supervisory Statement: N/A Speech Language Pathologist: Tory Lion M.A., [facility]-READING INTERVENTIONIST
== END 2023-06-19 14:33 | disposition home or self-care (01) ==
LOC: HO.XRAY 14:32
PROVIDERS: Visit Provider Internal Medicine
DX: R13.12 Dysphagia, oropharyngeal phase (principal)
CPT/HCPCS: 74230; 92611

== ENCOUNTER → 2023-06-19 14:35 | Outpatient (BNV) | payer MEDICARE, MEDICAID, SELFPAY | PROVIDERS: Visit Provider Physician Assistant Surgical | DX: R13.10 Dysphagia, unspecified (principal) | CPT/HCPCS: 74230 ==

== ENCOUNTER 2023-07-18 08:44 | Outpatient (REF) | payer MEDICARE, MEDICAID, SELFPAY ==
[2023-07-18 14:25] LABS: Creatinine Urine 49.01 mg/dL; Microalbum/Creatinine Ratio Ur 91.8 ug/mg cr (<30)
[2023-07-18 18:04] LABS: Cholesterol 193 mg/dL (<200); HDL Cholesterol 58 mg/dL (>40); LDL Cholesterol Calculated 119 mg/dL (<100); Triglycerides 84 mg/dL (<150)
[2023-07-18 18:07] LABS: TSH reflex Free T4 1.38 uIU/mL (0.32-4.0); Vitamin D 25-OH Total 32.1 ng/mL (>30)
[2023-07-18 19:03] LABS: Reflex LDLD? No
== END 2023-07-18 08:45 | disposition home or self-care (01) ==
LOC: HO.HHCL 08:44
PROVIDERS: Visit Provider Internal Medicine
DX: Z13.89 Encounter for screening for other disorder (principal)
CPT/HCPCS: 36415; 80061; 82043; 82306; 82570; 84443

== ENCOUNTER 2023-08-21 15:47 | Emergency (ER) | payer MEDICARE, MEDICAID, SELFPAY ==
--- NOTE | ~2023-08-21 | CT_ITS ---
EXAMINATION: CT HEAD WITHOUT CONTRAST CLINICAL INFORMATION: Closed head injury COMPARISON: CT head from 02/06/2023 TECHNIQUE: Contiguous axial imaging was performed from the skull base to vertex without intravenous administration of contrast. This CT examination was performed using dose optimization techniques as appropriate, variously including the following: *Automated exposure control *Adjustment of mA and/or kV according to patient size (this includes techniques or standardized protocols for targeted exams where dose is matched to indication/reason for exam; i.e. extremities or head) *Use of iterative reconstruction technique DLP: 698.27 mGy-cm FINDINGS: There is no evidence of acute intracranial hemorrhage or territorial infarction. 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 Chronic white matter small vessel ischemic changes. Cerebral atrophy with ventricular prominence. No abnormal mass effect or midline shift is seen. [place] to white matter differentiation is well preserved. No extra-axial fluid collections are identified. The ventricles are normal in size. There is no abnormal attenuation within the brain parenchyma. The osseous structures and soft tissues are normal. Mucoperiosteal thickening of the ethmoid sinuses. The mastoid air cells and visualized portions of the paranasal sinuses are well aerated. Atherosclerotic calcifications. CT/CT cervical spine wo IV con IMPRESSION: 1. No acute intracranial pathology. 2. 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 3. Chronic white matter small vessel ischemic changes. EXAMINATION: Noncontrast CT scan of the cervical spine. INDICATION: Fall COMPARISON: CT cervical spine from 02/06/2023 TECHNIQUE: Helical, multidetector axial images were obtained from the occiput to the upper thorax. Coronal and sagittal reformats of the cervical spine were provided for interpretation. DLP: 515.19 mGy-cm FINDINGS: No acute fractures or dislocations of the cervical spine are seen. Multilevel degenerative changes greatest at C4-C5. Anatomic alignment and positioning of the vertebral bodies and posterior elements is noted. The atlantoaxial joint and craniovertebral articulations are normal without evidence of subluxation. There is no prevertebral soft tissue swelling. The thyroid gland and visualized portions of the lung apices and mediastinum are unremarkable. IMPRESSION: 1. No acute visible fracture or dislocation. 2. Multilevel degenerative changes greatest at C4-C5.
[2023-08-21 16:04] VITALS: BP 130/76; BP 156/76; PULSE 85; PULSE 87; RESP 17; TEMP 36.4; O2SAT 95; O2SAT 97; BMI 30.8
--- NOTE | 2023-08-21 16:13 | ED_ITS ---
HPI - Fall General Chief Complaint: Fall Stated Complaint: fall w/ headstirke, -thinners Time Seen by Provider: 08/21/23 16:07 Source: patient and EMS Mode of arrival: EMS Limitations: no limitations History of Present Illness HPI Narrative: PATIENT WITH HISTORY OF SEIZURE DISORDER, HYPERLIPIDEMIA, SCHIZOPHRENIA, TYPE 2 DIABETES, MENTAL RETARDATION, HYPERTENSION FROM CARE HOME WAS WALKING UPSTAIRS GOT ON TO ONE-STEP LOST BALANCE FELL BACKWARDS HITTING HIS HEAD THE GROUND NO LOSS OF CONSCIOUSNESS NO SEIZURE ACTIVITY PATIENT IS NOT SUPPOSED TO WALK ALONE SUPPOSED TO GET 1% ASSIST WHEN AMBULATES BUT STUFF WAS NOT CLOSED BY WHEN PATIENT HAS STARTED WALKING Related Data Home Medications ?Medication ?Instructions ?Recorded ?Confirmed alcohol swabs pad topical 03/30/20 03/30/20 aspirin 81 mg tablet,delayed 81 mg PO QAM 03/30/20 08/08/22 release atorvastatin 40 mg tablet mg PO 03/30/20 03/30/20 blood-glucose meter #1 ea 03/30/20 03/30/20 folic acid 1 mg tablet 1 mg PO QAM 03/30/20 08/08/22 losartan 50 mg tablet 50 mg PO DAILY 03/30/20 08/08/22 omeprazole 20 mg capsule,delayed 20 mg PO DAILY 03/30/20 08/08/22 release metformin 850 mg tablet 850 mg PO BID 01/12/21 08/08/22 ammonium lactate 12 % topical cream 1 appl topical BID 07/13/21 08/08/22 ergocalciferol (vitamin D2) 1,250 1,250 mcg PO QWEEK 07/13/21 08/08/22 mcg (50,000 unit) capsule (Vitamin D2) lancets 28 gauge (Prodigy Twist #100 ea 07/13/21 Top Lancet) acetaminophen 325 mg tablet 650 mg PO QID PRN Pain 02/16/22 08/08/22 bacitracin 500 unit/gram topical topical 02/16/22 ointment guaifenesin 200 mg tablet 200 mg PO QID 02/16/22 08/08/22 phenobarbital 97.2 mg tablet 97.2 mg PO BEDTIME 02/16/22 08/08/22 phenytoin sodium extended 200 mg 200 mg PO BID 02/16/22 08/08/22 capsule Previous Rx's ?Medication ?Instructions ?Recorded finasteride 5 mg tablet 5 mg PO DAILY 90 days #90 tabs 04/20/23 terazosin 1 mg capsule 1 mg PO DAILY 90 days #90 caps 04/20/23 tolterodine 4 mg capsule,extended 4 mg PO BID 90 days #180 caps 04/26/23 release 24 hr Allergies Allergy/AdvReac Type Severity Reaction Status Date / Time lisinopril AdvReac Unknown cough Verified 08/21/23 16:08 [facility] Past Medical History Medical History Abnormal gait Anodontia HTN (hypertension) Diabetes Affective disorder Schizophrenia Tubular adenoma Hyperlipemia Seizure disorder BPH (benign prostatic hyperplasia) Frequency of urination Surgical History Hx of colonoscopy Family History Family History Unknown No problems noted. 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 And awake No acute distress. Eyes: PERRLA, No Nystagmus ENT: Pharynx normal. Oral Mucosa moist atraumatic normocephalic Neck: Normal inspection. Neck supple. No midline tenderness CVS: Normal heart rate and rhythm. Pulses normal. Respiratory: No respiratory distress. Equal air entry bilateral, no wheezing/rales/rhonchi Abdomen: Soft and nontender. Bowel sounds are present, no mass palpable, no CVA tenderness Skin: Skin warm and dry. Normal skin color. Normal skin turgor. Extremities: No lower extremity edema. No calf tenderness Neuro: Alert and awake No motor deficit. No sensory deficit.No cerebellar signs , cranial nerves II-XII intact Medical Decision Making Medical Decision Making MDM Narrative: PATIENT IS STATUS POST MECHANICAL FALL CT SCAN OF THE HEAD AND C-SPINE NEGATIVE NO OTHER SIGNIFICANT INJURIES PATIENT IS BASELINE OF ORIENTATION WILL DISCHARGE PATIENT BACK TO CARE HOME PERSONNEL Independent Interpretation I performed an independent interpretation of an: CT Scan Interpretation: CT C-SPINE AND CT HEAD NEGATIVE FOR ACUTE Radiology Impression Discussion of test interpretation with radiology: I have reviewed the radiologist's reading. Discharge Plan Discharge Clinical Impression: Fall Patient Disposition: Home, Self-Care Instructions: Fall Prevention for Older Adults (ED) Additional Instructions: Care and cautions as advised Head CT and cervical spine CT negative for acute Prescriptions: No Action tolterodine 4 mg capsule,extended release 24hr 4 mg PO BID 90 Days Qty: 180 1RF omeprazole 20 mg capsule,delayed release(DR/EC) 20 mg PO DAILY atorvastatin 40 mg tablet PO folic acid 1 mg tablet 1 mg PO QAM aspirin 81 mg tablet,delayed release (DR/EC) 81 mg PO QAM alcohol swabs Pads, Medicated topical (DME) blood-glucose meter Kit See Rx Instructions Not Applicable BID Qty: 1 Rx Instructions: As directed losartan 50 mg tablet 50 mg PO DAILY metformin 850 mg tablet 850 mg PO BID ammonium lactate 12 % cream 1 appl topical BID ergocalciferol (vitamin D2) [Vitamin D2] 1,250 mcg (50,000 unit) capsule 1,250 mcg PO QWEEK (DME) lancets [Prodigy Twist Top Lancet] 28 gauge misc See Rx Instructions .ROUTE .MEDSUPPLY Qty: 100 Rx Instructions: As directed acetaminophen 325 mg tablet 650 mg PO QID PRN (Reason: Pain) bacitracin 500 unit/gram ointment topical guaifenesin 200 mg tablet 200 mg PO QID phenobarbital 97.2 mg tablet 97.2 mg PO BEDTIME phenytoin sodium extended 200 mg capsule 200 mg PO BID terazosin 1 mg capsule 1 mg PO DAILY 90 Days Qty: 90 1RF finasteride 5 mg tablet 5 mg PO DAILY 90 Days Qty: 90 1RF Print Language: Mauritanian
[2023-08-21 18:49] VITALS: BP 178/79; PULSE 86; RESP 17; TEMP 36.6; O2SAT 96
[2023-08-21 19:28] VITALS: BP 161/88; PULSE 84; RESP 16; TEMP 37.1; O2SAT 97
--- NOTE | 2023-08-21 20:01 | PC.NURSE ---
custodial staff at bedside to transport pt home. pt 1A into wheelchair by custodial staff.
[2023-08-21 20:05] VITALS: BP 161/88; PULSE 84; RESP 16; TEMP 37.1; O2SAT 97
== END 2023-08-21 20:05 | disposition home or self-care (01) ==
PROVIDERS: Emergency Provider Internal Medicine
DX: R51.9 Headache, unspecified (principal); Z91.81 History of falling; E11.9 Type 2 diabetes mellitus without complications; I10 Essential (primary) hypertension; E78.5 Hyperlipidemia, unspecified; Z79.02 Long term (current) use of antithrombotics/antiplatelets; Z79.82 Long term (current) use of aspirin; Z79.84 Long term (current) use of oral hypoglycemic drugs
CPT/HCPCS: 70450; 72125; 99284

== ENCOUNTER 2023-12-05 13:56 | Emergency (ER) | payer MEDICARE, MEDICAID, SELFPAY ==
--- NOTE | 2023-12-05 | ECG_ITS ---
Test Reason : FALL Blood Pressure : / mmHG Vent. Rate : 069 BPM Atrial Rate : 069 BPM P-R Int : 228 ms QRS Dur : 090 ms QT Int : 380 ms P-R-T Axes : 016 018 031 degrees QTc Int : 407 ms Sinus rhythm with 1st degree A-V block Otherwise normal ECG When compared with ECG of 14-NOV-2020 02:27, NH interval has increased Referred By: Tonia Ashton Electronically Signed By:OPAL KAUR
--- NOTE | ~2023-12-05 | CT_ITS ---
EXAMINATION: CT HEAD WITHOUT CONTRAST CLINICAL INFORMATION: Triplet and fell, Blunt head trauma with loss of consciousness, significant head injury and posttraumatic headache. Injury COMPARISON: CT scan of brain on 08/21/2023 TECHNIQUE: Contiguous axial imaging was performed from the skull base to vertex without intravenous administration of contrast. This CT examination was performed using dose optimization techniques as appropriate, variously including the following: *Automated exposure control *Adjustment of mA and/or kV according to patient size (this includes techniques or standardized protocols for targeted exams where dose is matched to indication/reason for exam; i.e. extremities or head) *Use of iterative reconstruction technique DLP: 715.52 mGy-cm FINDINGS: Ventricles, sulci and cisterns are markedly dilated. Extensive wedge-shaped cystic encephalomalacia is seen in lateral left temporal pole. Wedge-shaped encephalomalacia is seen in anterior lower left frontal lobe. Bilateral frontal and parietal deep white matters show decrease in attenuation. Smaller wedge-shaped encephalomalacia is seen in posterior superior left temporal lobe. Acute gyriform subarachnoid and cortical parenchymal acute hematomas are seen in anterior lateral left frontal lobe, lateral posterior left temporal lobe. There is no midline shift. Borrero and white matter differentiation is normal. Bone window images show no evidence of skull fracture. CT/CT head/brain wo IV con IMPRESSION: 1. Unchanged marked age related cerebral atrophy, ventriculomegaly, bilateral ischemic white matter disease. 2. Interval development of acute mixed cerebral cortical parenchymal and gyriform subarachnoid hematomas in anterior lateral left frontal lobe and lateral posterior left temporal lobe. 3. No displaced skull fracture is seen. 4. Unchanged multiple chronic cerebral infarctions in lateral left temporal pole, anterior inferior left frontal lobe and posterior superior left temporal lobe. 5. No evidence of space occupying lesion could be found. 6. The current plain CT scan of the brain shows no diagnostic evidence of acute cerebral infarction. This critical result was discussed with AURE Raman on 12/05/2023 at 1511 hours and it was ascertained that the content and urgency of this report was understood at the time of direct communication. Electronically signed by: Timmy Dubose MD 12/05/2023 03:12 PM EDT
--- NOTE | ~2023-12-05 | CT_ITS ---
EXAMINATION: CT CERVICAL SPINE WITHOUT CONTRAST CLINICAL INFORMATION: Fall. Head strike. COMPARISON: None available. TECHNIQUE: Axial images obtained through the cervical spine. Coronal and sagittal reformatted images are performed at CT scanner This CT examination was performed using dose optimization techniques as appropriate, variously including the following: *Automated exposure control *Adjustment of mA and/or kV according to patient size (this includes techniques or standardized protocols for targeted exams where dose is matched to indication/reason for exam; i.e. extremities or head) *Use of iterative reconstruction technique DLP: 520.3 mGy-cm FINDINGS: No acute abnormality. No fracture or subluxation. No prevertebral soft tissue swelling. Cervical vertebrae are normal alignment. There is advanced degenerative spondylosis. Large anterior endplate spur and mild disc height narrowing C3-C4. Significant disc height narrowing, endplate irregularity and vertebral endplate spurring C4-C5. Moderate disc height narrowing and endplate spurs C5-C6, C6-C7. Multilevel facet joint arthrosis. CT/CT cervical spine wo IV con IMPRESSION: 1. No acute abnormality. No fracture or subluxation. 2. Advanced degenerative spondylosis of cervical spine. Fleischner guidelines were followed. Electronically signed by: Lincoln Baron MD 12/05/2023 04:02 PM EDT
[2023-12-05 14:01] VITALS: BP 136/70; BP 142/90; PULSE 71; PULSE 73; RESP 16; TEMP 36.5; O2SAT 96; O2SAT 97
--- NOTE | 2023-12-05 14:20 | ED_ITS ---
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 Fall was witnessed by bystanders who state that patient tripped and fell, striking his head on the sidewalk. He lost consciousness for approximately 40 seconds. He is not on anticoagulation and does not have any known coagulation disorders. Patient has history of unsteady gait with frequent falls. Patient tells me he ambulates independently and does not use a cane or a walker. He does not have any complaints at present. Denies pain. Denies headache. History somewhat limited due to patient's Alzheimer dementia. Patient's brother is at bedside to provide supplemental history. veterinary physiologist utilized throughout visit to communicate with patient. Related Data Home Medications ?Medication ?Instructions ?Recorded ?Confirmed alcohol swabs pad topical 03/30/20 03/30/20 aspirin 81 mg tablet,delayed 81 mg PO QAM 03/30/20 08/08/22 release atorvastatin 40 mg tablet mg PO 03/30/20 03/30/20 blood-glucose meter #1 ea 03/30/20 03/30/20 folic acid 1 mg tablet 1 mg PO QAM 03/30/20 08/08/22 losartan 50 mg tablet 50 mg PO DAILY 03/30/20 08/08/22 omeprazole 20 mg capsule,delayed 20 mg PO DAILY 03/30/20 08/08/22 release metformin 850 mg tablet 850 mg PO BID 01/12/21 08/08/22 ammonium lactate 12 % topical cream 1 appl topical BID 07/13/21 08/08/22 ergocalciferol (vitamin D2) 1,250 1,250 mcg PO QWEEK 07/13/21 08/08/22 mcg (50,000 unit) capsule (Vitamin D2) lancets 28 gauge (Prodigy Twist #100 ea 07/13/21 Top Lancet) acetaminophen 325 mg tablet 650 mg PO QID PRN Pain 02/16/22 08/08/22 bacitracin 500 unit/gram topical topical 02/16/22 ointment guaifenesin 200 mg tablet 200 mg PO QID 02/16/22 08/08/22 phenobarbital 97.2 mg tablet 97.2 mg PO BEDTIME 02/16/22 08/08/22 phenytoin sodium extended 200 mg 200 mg PO BID 02/16/22 08/08/22 capsule Previous Rx's ?Medication ?Instructions ?Recorded finasteride 5 mg tablet 5 mg PO DAILY 90 days #90 tabs 10/04/23 terazosin 1 mg capsule 1 mg PO DAILY 90 days #90 caps 10/04/23 tolterodine 4 mg capsule,extended 4 mg PO BID 90 days #180 caps 10/04/23 release 24 hr Allergies Allergy/AdvReac Type Severity Reaction Status Date / Time lisinopril AdvReac Unknown cough Verified 12/05/23 14:02 Review of Systems 2 Review of Systems: Yes all other systems are reviewed and are negative [facility] Past Medical History Attestation statement: The following information was validated with the patient. Source: old records reviewed, obtained from family and nursing notes reviewed Medical History Abnormal gait Anodontia HTN (hypertension) Diabetes Affective disorder Schizophrenia Tubular adenoma Hyperlipemia Seizure disorder BPH (benign prostatic hyperplasia) Frequency of urination Surgical History Hx of colonoscopy Family History Family History Unknown No problems noted. 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 Members Other:: intermediate Unable to assess alcohol history related to: Unable to respond Alcohol intake: never Patient Tobacco Use Status: Never used Tobacco Advance Directives: No Advance Directives Information Provided: No Advance Directives Date on File: 08/11/22 Do you have a plan to hurt others: No Plan Physical Exam 2 Vital Signs: Vital Signs: Last Vital Signs Temp 98.1 F 12/05/23 16:04 Pulse 72 12/05/23 16:04 Resp 12 12/05/23 16:04 BP 150/77 H 12/05/23 16:04 Pulse Ox 97 12/05/23 16:04 O2 Del Method Room Air 12/05/23 16:04 BMI result Body Mass Index 30.0 Vital signs stable General: Lethargic appearing, arousable to verbal and painful stimuli. Skin: Warm, dry, intact Head: Normocephalic, atraumatic. EENT: Hearing is intact b/l. Conjunctiva clear. Sclera is anicteric. PERRLA. EOM intact. Moist mucous membranes.? Neck: patient in cervical collar Cardiac: Chest wall symmetric. RRR. Lungs: Normal respiratory effort without accessory muscle use. CTA bilaterally Abdomen: Soft, non-tender, non-distended. No rebound tenderness or guarding. Positive BS x4. Back: No midline spinous or paraspinal tenderness. No step off deformity. Ext: Upper and lower extremities atraumatic, without tenderness, deformity, swelling or erythema. Full ROM throughout. Capillary refill <2 seconds in all extremities. Pulses 2+ equal and bilateral. Neuro: Alert, oriented to person which appears to be patient's baseline dementia. Strength 5/5 intact throughout. No saddle anesthesia. Sensation intact to light touch. NV intact distally. Psych: Appropriate mood and affect. Responds appropriately to questions. Course Course Course Narrative: 3483 -- Called to bedside by dealer support technician during CT imaging. Patient appears to have small acute subdural vs subarachnoid bleed. likely traumatic secondary to fall. [facility] contacted for stat imaging read. Patient's HOB elevated. > cbc showing drop in H&H at 9.6/30.8. the only previous CBC we have on him is from 11/14/20 with h&h of 12.5/ 38.8. Chemistry without acute electrolyte abnormality requiring intervention. No STORMY. Normal liver function. 151 -- Received critical CT read from radiologist Dr. Estrada -- acute parenchymal and subarachnoid hemorrhage of the left frontal and left temporal lobes. No midline shift. > call placed out to [facility] trauma for transfer 152 -- Official CT read significant for interval development of acute mixed cerebral cortical parenchymal and gyriform subarachnoid hematomas an anterior lateral left frontal lobe and lateral posterior left temporal lobe. No midline shift. No skull fracture noted. There are unchanged multiple chronic cerebral infarctions and lateral left temporal pole, anterior inferior left frontal lobe and posterior superior left temporal lobe. Unchanged marked age-related cerebral atrophy, ventriculomegaly, bilateral ischemic white matter disease 1604 -- CT cervical spine does not demonstrate acute fracture or subluxation. Collar removed. I spoke with [facility] ED attending Dr. Mcclelland who has accepted patient for ED to ED transfer for further management and consultation with neuro. Medical Decision Making Medical Decision Making MDM Narrative: 73 year old [place] Korean-speaking male with pmhx significant for seizure disorder, HDL, schizophrenia, T2DM, mental retardation, Alzheimer, and HTN presents to the ED via EMS from adult day care facility with c collar placed following mechanical trip and fall [employer] with head strike and LOC. No on anticoagulation. GCS 13 (somewhat confused however family at bedside states patient is at his baseline secondary to dementia) Vitals are stable. Normotensive. Patient maintaining airway. Appears fatigued, responsive to verbal stimuli. Obeys commands. PERRLA. No palpable skull fracture or obvious head lac on initial eval. Limited secondary to c collar placement - will await imaging/ c collar removal for further eval. Differential diagnosis includes closed head injury, cervical fracture, concussion, intracranial bleed. less likely spontaneous SAH. Plan for labs, imaging, serial re-evaluation. Differential Diagnosis Differential Diagnoses: The differential diagnosis associated with the presentation includes As above Admission/Observation Consideration of admission/observation: Escalation of care including admission/observation considered Patient to be transfered to acute care hospital for acute trauamtic parenchyml and subarachnoid hemorrhage of left frontal and left temporal lobes. Consult Healthcare Provider [facility] ED attending Dr. Mcclelland Lab Data [facility] Lab Attestation statement: I reviewed the patient's lab results. As above 12/05/23 14:18 12/05/23 14:18 Labs: Lab Results 12/05/23 12/05/23 Range/Units 14:18 15:21 WBC 5.9 (4.8-10.8) X10*3/uL RBC 3.83 L (4.60-5.80) X10*6/uL Hgb 9.6 L (14.0-18.0) g/dl Hct 30.8 L (42.0-52.0) % MCV 80.4 (80.0-98.0) fL MCH 25.1 L (27.0-33.0) pg MCHC 31.2 (31.0-36.0) g/dl RDW 16.7 H (11.0-16.0) % Plt Count 204 (160-400) X10*3/uL MPV 9.2 L (9.4-12.4) fL Immature Gran % (Auto) 0.2 (0.0-0.4) % Neut % (Auto) 38.5 L (45-73) % Lymph % (Auto) 46.5 H (20-40) % Cannon % (Auto) 10.8 (2-11) % Eos % (Auto) 3.2 (0-4) % Baso % (Auto) 0.8 (0-2) % Lymph # (Auto) 2.8 (1.2-4.9) X10*3/uL Cannon # (Auto) 0.6 (0.1-1.2) X10*3/uL Eos # (Auto) 0.2 (0.0-0.4) X10*3/uL Baso # (Auto) 0.1 (0.0-0.2) X10*3/uL Abs Immat Gran (auto) 0.01 (0.00-0.03) X10*3/uL Absolute Neuts (auto) 2.3 (2.0-8.3) x10*3/uL Absolute Nucleated RBC 0.000 (0.0-0.012) X10*3/uL Nucleated RBC % (auto) 0.0 (0.0-0.2) /100WBC PT 12.0 (11.1-13.3) SEC INR 1.0 (0.9-1.1) Sodium 140 (135-145) mmol/L Potassium 4.3 (3.3-5.1) mmol/L Chloride 103 (96-108) mmol/L Carbon Dioxide 27 (22-29) mmol/L Anion Gap 14 (12-20) BUN 15 (9-16) mg/dL Creatinine 1.15 (0.5-1.4) mg/dL Estim Creat Clear Calc 64.1 Estimated GFR > 60 Random Glucose 86 (60-115) mg/dL Calcium 9.4 (8.4-10.2) mg/dL Total Bilirubin 0.2 (0.0-1.0) mg/dL AST 23 (5-37) U/L ALT 22 (0-40) U/L Alkaline Phosphatase 111 (39-117) U/L Total Protein 7.3 (6.5-8.0) g/dL Albumin 3.9 (3.5-5.0) g/dL Independent Interpretation I performed an independent interpretation of an: EKG and CT Scan Interpretation: EKG showing sinus rhythm with first-degree AV block with a rate of 69 beats per minute, QT 380, QTC 407, no acute ischemic changes or ST elevations. When compared to EKG obtained on 11/14/2020, first-degree AV block now present. CT head/ brain showing acute left parenchymal and subarachnoid bleeds, agree with radiologist's interpretation. CT cervical spine without acute fracture or subluxation, agree with radiologist's interpretation. Radiology Impression Discussion of test interpretation with radiology: I have reviewed the radiologist's reading. Radiologist Impression: EXAMINATION: CT HEAD WITHOUT CONTRAST CLINICAL INFORMATION: Triplet and fell, Blunt head trauma with loss of consciousness, significant head injury and posttraumatic headache. Injury COMPARISON: CT scan of brain on 08/21/2023 TECHNIQUE: Contiguous axial imaging was performed from the skull base to vertex without intravenous administration of contrast. This CT examination was performed using dose optimization techniques as appropriate, variously including the following: *Automated exposure control *Adjustment of mA and/or kV according to patient size (this includes techniques or standardized protocols for targeted exams where dose is matched to indication/reason for exam; i.e. extremities or head) *Use of iterative reconstruction technique DLP: 715.52 mGy-cm FINDINGS: Ventricles, sulci and cisterns are markedly dilated. Extensive wedge-shaped cystic encephalomalacia is seen in lateral left temporal pole. Wedge-shaped encephalomalacia is seen in anterior lower left frontal lobe. Bilateral frontal and parietal deep white matters show decrease in attenuation. Smaller wedge-shaped encephalomalacia is seen in posterior superior left temporal lobe. Acute gyriform subarachnoid and cortical parenchymal acute hematomas are seen in anterior lateral left frontal lobe, lateral posterior left temporal lobe. There is no midline shift. Borrero and white matter differentiation is normal. Bone window images show no evidence of skull fracture. CT/CT head/brain wo IV con IMPRESSION: 1. Unchanged marked age related cerebral atrophy, ventriculomegaly, bilateral ischemic white matter disease. 2. Interval development of acute mixed cerebral cortical parenchymal and gyriform subarachnoid hematomas in anterior lateral left frontal lobe and lateral posterior left temporal lobe. 3. No displaced skull fracture is seen. 4. Unchanged multiple chronic cerebral infarctions in lateral left temporal pole, anterior inferior left frontal lobe and posterior superior left temporal lobe. 5. No evidence of space occupying lesion could be found. 6. The current plain CT scan of the brain shows no diagnostic evidence of acute cerebral infarction. This critical result was discussed with AURE Raman on 12/05/2023 at 1511 hours and it was ascertained that the content and urgency of this report was understood at the time of direct communication. Electronically signed by: Timmy Dubose MD 12/05/2023 03:12 PM EDT - EXAMINATION: CT CERVICAL SPINE WITHOUT CONTRAST CLINICAL INFORMATION: Fall. Head strike. COMPARISON: None available. TECHNIQUE: Axial images obtained through the cervical spine. Coronal and sagittal reformatted images are performed at CT scanner This CT examination was performed using dose optimization techniques as appropriate, variously including the following: *Automated exposure control *Adjustment of mA and/or kV according to patient size (this includes techniques or standardized protocols for targeted exams where dose is matched to indication/reason for exam; i.e. extremities or head) *Use of iterative reconstruction technique DLP: 520.3 mGy-cm FINDINGS: No acute abnormality. No fracture or subluxation. No prevertebral soft tissue swelling. Cervical vertebrae are normal alignment. There is advanced degenerative spondylosis. Large anterior endplate spur and mild disc height narrowing C3-C4. Significant disc height narrowing, endplate irregularity and vertebral endplate spurring C4-C5. Moderate disc height narrowing and endplate spurs C5-C6, C6-C7. Multilevel facet joint arthrosis. CT/CT cervical spine wo IV con IMPRESSION: 1. No acute abnormality. No fracture or subluxation. 2. Advanced degenerative spondylosis of cervical spine. Fleischner guidelines were followed. Electronically signed by: Lincoln Baron MD 12/05/2023 04:02 PM EDT RP Independent Historian Clinical information obtained from an independent historian. History obtained from or confirmed by: EMS and Other (brother) External Record Review External record reviewed: Inpatient record Chronic Conditions Patient?s care impacted by: Other (Alzheimer's, hypertension, seizure disorder) Social Determinants Patient?s care significantly limited by Social Determinants of Health including: Other Social Determinant of Health Critical Care Time Critical Care Time Critical Care Time: Yes Total Critical Care Time: 60 Attestation: Critical care time in the amount of 60 minutes has been provided to the patient in terms of direct patient care, frequent reevaluation, consultation with [facility] trauma, review and interpretation of medical data and results, and management of potentially life-threatening conditions. This is all outside of any medical procedures. Discharge Plan Discharge Clinical Impression: Traumatic subarachnoid hemorrhage with loss of consciousness, Cerebral parenchymal hemorrhage Patient Disposition: [facility] Transfer Details: [facility] ED/ Trauma, accepting physician Dr. Mcclelland Instructions: Subarachnoid Hemorrhage (DC) Additional Instructions: CT head/brain wo IV con IMPRESSION: 1. Unchanged marked age related cerebral atrophy, ventriculomegaly, bilateral ischemic white matter disease. 2. Interval development of acute mixed cerebral cortical parenchymal and gyriform subarachnoid hematomas in anterior lateral left frontal lobe and lateral posterior left temporal lobe. 3. No displaced skull fracture is seen. 4. Unchanged multiple chronic cerebral infarctions in lateral left temporal pole, anterior inferior left frontal lobe and posterior superior left temporal lobe. 5. No evidence of space occupying lesion could be found. 6. The current plain CT scan of the brain shows no diagnostic evidence of acute cerebral infarction. Prescriptions: No Action tolterodine 4 mg capsule,extended release 24hr 4 mg PO BID 90 Days Qty: 180 1RF terazosin 1 mg capsule 1 mg PO DAILY 90 Days Qty: 90 1RF finasteride 5 mg tablet 5 mg PO DAILY 90 Days Qty: 90 1RF omeprazole 20 mg capsule,delayed release(DR/EC) 20 mg PO DAILY atorvastatin 40 mg tablet PO folic acid 1 mg tablet 1 mg PO QAM aspirin 81 mg tablet,delayed release (DR/EC) 81 mg PO QAM alcohol swabs Pads, Medicated topical (DME) blood-glucose meter Kit See Rx Instructions Not Applicable BID Qty: 1 Rx Instructions: As directed losartan 50 mg tablet 50 mg PO DAILY metformin 850 mg tablet 850 mg PO BID ammonium lactate 12 % cream 1 appl topical BID ergocalciferol (vitamin D2) [Vitamin D2] 1,250 mcg (50,000 unit) capsule 1,250 mcg PO QWEEK (DME) lancets [Prodigy Twist Top Lancet] 28 gauge misc See Rx Instructions .ROUTE .MEDSUPPLY Qty: 100 Rx Instructions: As directed acetaminophen 325 mg tablet 650 mg PO QID PRN (Reason: Pain) bacitracin 500 unit/gram ointment topical guaifenesin 200 mg tablet 200 mg PO QID phenobarbital 97.2 mg tablet 97.2 mg PO BEDTIME phenytoin sodium extended 200 mg capsule 200 mg PO BID Discharge Date/Time: 12/05/23 17:20 Print Language: South Korean
[2023-12-05 14:22] LABS: Basophils Absolute Auto 0.1 X10*3/uL (0.0-0.2); Basophils Percent Auto 0.8 % (0-2); Eosinophils Absolute Auto 0.2 X10*3/uL (0.0-0.4); Eosinophils Percent Auto 3.2 % (0-4); Hematocrit 30.8 % (42.0-52.0); Hemoglobin 9.6 g/dl (14.0-18.0); Imm Gran Abs Auto 0.01 X10*3/uL (0.00-0.03); Imm Gran Pct Auto 0.2 % (0.0-0.4); Lymphocytes Absolute Auto 2.8 X10*3/uL (1.2-4.9); Lymphocytes Percent Auto 46.5 % (20-40); MANUAL DIFF FLAG NO; Mean Corpuscular HGB Conc 31.2 g/dl (31.0-36.0); Mean Corpuscular Hemoglobin 25.1 pg (27.0-33.0); Mean Corpuscular Volume 80.4 fL (80.0-98.0); Mean Platelet Volume 9.2 fL (9.4-12.4); Monocytes Absolute Auto 0.6 X10*3/uL (0.1-1.2); Monocytes Percent Auto 10.8 % (2-11); Neutrophils Absolute Auto 2.3 x10*3/uL (2.0-8.3); Neutrophils Percent Auto 38.5 % (45-73); Platelet Count 204 X10*3/uL (160-400); Red Blood Count 3.83 X10*6/uL (4.60-5.80); Red Cell Distribution Width 16.7 % (11.0-16.0); White Blood Count 5.9 X10*3/uL (4.8-10.8)
[2023-12-05 14:35] LABS: Alanine Aminotransferase 22 U/L (0-40); Albumin Level 3.9 g/dL (3.5-5.0); Alkaline Phosphatase 111 U/L (39-117); Anion Gap 14 (12-20); Aspartate Amino Transferase 23 U/L (5-37); Bilirubin Total 0.2 mg/dL (0.0-1.0); Blood Urea Nitrogen 15 mg/dL (9-16); Calcium 9.4 mg/dL (8.4-10.2); Carbon Dioxide 27 mmol/L (22-29); Chloride 103 mmol/L (96-108); Creatinine Clr Calc Pharmacy 64.1; Estimated Glomerular Filt Rate > 60; Glucose Random 86 mg/dL (60-115); Potassium 4.3 mmol/L (3.3-5.1); Sodium 140 mmol/L (135-145); Total Protein 7.3 g/dL (6.5-8.0)
--- NOTE | 2023-12-05 15:02 | PC.NURSE ---
patient placed on tele monitor, normal sinus rhythm bpm 70, patient pupils equal and reactive, patient has dementia at baseline, functioning at baseline mentation. patient states he feels tired. IV placed in the right AC #20, head of bed elevated as requested by provider. family at bedside, patient remains in c collar
--- NOTE | 2023-12-05 16:01 | PC.NURSE ---
Addendum entered by Lena Monsalve RN 12/05/23 16:05: patient denies any pain Original Note: patient is at baseline mentation, family at bedside, pupils equal and reactive.
[2023-12-05 16:04] VITALS: BP 150/77; PULSE 72; RESP 12; TEMP 36.7; O2SAT 97
--- NOTE | 2023-12-05 16:18 | PC.NURSE ---
patient c collar cleared and removed. patient changed into hospital attire, washed up, patient repositioned in bed, head of bed elevated. awaiting tx for trauma center
--- NOTE | 2023-12-05 16:45 | PC.NURSE ---
report given to [facility]
--- NOTE | 2023-12-05 16:46 | PC.NURSE ---
attempted to call [facility] ED for nurse to nurse, no answer
== END 2023-12-05 17:20 | disposition short-term general hospital (02) ==
LOC: HO.ED 15:37
PROVIDERS: Physician Assistant Medical; Emergency Provider Emergency Medicine
DX: S06.6X9A Traumatic subarachnoid hemorrhage with loss of consciousness of unspecified duration, initial encounter (principal); S06.369A Traumatic hemorrhage of cerebrum, unspecified, with loss of consciousness of unspecified duration, initial encounter; I44.0 Atrioventricular block, first degree; G30.9 Alzheimer's disease, unspecified; F02.80 Dementia in other diseases classified elsewhere, unspecified severity, without behavioral disturbance, psychotic disturbance, mood disturbance, and anxiety; M54.2 Cervicalgia; R51.9 Headache, unspecified; R26.81 Unsteadiness on feet; W01.10XA Fall on same level from slipping, tripping and stumbling with subsequent striking against unspecified object, initial encounter; Y93.89 Activity, other specified; Y92.480 Sidewalk as the place of occurrence of the external cause; Y99.8 Other external cause status; Z79.899 Other long term (current) drug therapy; Z91.81 History of falling
CPT/HCPCS: 36415; 70450; 72125; 80053; 85025; 85610; 93005; 99285

== ENCOUNTER 2023-12-21 12:32 | Outpatient (REF) | payer MEDICARE, MEDICAID, SELFPAY ==
[2023-12-21 13:34] LABS: MANUAL DIFF FLAG NO
[2023-12-21 13:45] LABS: Basophils Absolute Auto 0.1 X10*3/uL (0.0-0.2); Basophils Percent Auto 0.8 % (0-2); Eosinophils Absolute Auto 0.2 X10*3/uL (0.0-0.4); Eosinophils Percent Auto 2.8 % (0-4); Hematocrit 31.3 % (42.0-52.0); Hemoglobin 9.8 g/dl (14.0-18.0); Imm Gran Abs Auto 0.02 X10*3/uL (0.00-0.03); Imm Gran Pct Auto 0.3 % (0.0-0.4); Lymphocytes Absolute Auto 2.4 X10*3/uL (1.2-4.9); Lymphocytes Percent Auto 40.2 % (20-40); Mean Corpuscular HGB Conc 31.3 g/dl (31.0-36.0); Mean Corpuscular Hemoglobin 25.2 pg (27.0-33.0); Mean Corpuscular Volume 80.5 fL (80.0-98.0); Monocytes Absolute Auto 0.6 X10*3/uL (0.1-1.2); Monocytes Percent Auto 9.4 % (2-11); Neutrophils Absolute Auto 2.8 x10*3/uL (2.0-8.3); Neutrophils Percent Auto 46.5 % (45-73); Platelet Count 284 X10*3/uL (160-400); Red Blood Count 3.89 X10*6/uL (4.60-5.80); Red Cell Distribution Width 16.6 % (11.0-16.0); White Blood Count 6.1 X10*3/uL (4.8-10.8)
[2023-12-21 14:08] LABS: Anion Gap 14 (12-20); Blood Urea Nitrogen 18 mg/dL (9-16); Calcium 9.5 mg/dL (8.4-10.2); Carbon Dioxide 27 mmol/L (22-29); Chloride 100 mmol/L (96-108); Estimated Glomerular Filt Rate > 60; Glucose Random 78 mg/dL (60-115); Potassium 4.5 mmol/L (3.3-5.1); Sodium 136 mmol/L (135-145)
== END 2023-12-21 12:33 | disposition home or self-care (01) ==
LOC: HO.HHCL 12:32
PROVIDERS: Visit Provider Internal Medicine
DX: I60.9 Nontraumatic subarachnoid hemorrhage, unspecified (principal)
CPT/HCPCS: 36415; 80048; 85025

== ENCOUNTER 2024-01-26 13:20 | Outpatient (REF) | payer MEDICARE, MEDICAID, SELFPAY ==
--- NOTE | ~2024-01-26 | CT_ITS ---
EXAMINATION: CT HEAD WITHOUT CONTRAST CLINICAL INFORMATION: Follow-up subarachnoid hemorrhage, seizures COMPARISON: CT scan of brain on 12/05/2023 TECHNIQUE: Contiguous axial imaging was performed from the skull base to vertex without intravenous administration of contrast. This CT examination was performed using dose optimization techniques as appropriate, variously including the following: *Automated exposure control *Adjustment of mA and/or kV according to patient size (this includes techniques or standardized protocols for targeted exams where dose is matched to indication/reason for exam; i.e. extremities or head) *Use of iterative reconstruction technique DLP: 733 mGy-cm FINDINGS: Ventricles, sulci and cisterns are markedly dilated. Extensive wedge-shaped cystic encephalomalacia is seen in lateral left temporal pole. Wedge-shaped encephalomalacia is seen in anterior lower left frontal lobe. Bilateral frontal and parietal deep white matters show decrease in attenuation. Smaller wedge-shaped encephalomalacia is seen in posterior superior left temporal lobe. There is no midline shift. Borrero and white matter differentiation is normal. Bone window images show no evidence of skull fracture. CT/CT head/brain wo IV con IMPRESSION: 1. Unchanged marked age related cerebral atrophy, ventriculomegaly, bilateral ischemic white matter disease. 2. Interval complete resolution of acute mixed cerebral cortical parenchymal and gyriform subarachnoid hematomas in anterior lateral left frontal lobe and lateral posterior left temporal lobe. 3. No displaced skull fracture is seen. 4. Unchanged multiple chronic cerebral infarctions in lateral left temporal pole, anterior inferior left frontal lobe and posterior superior left temporal lobe. 5. No evidence of space occupying lesion could be found. 6. The current plain CT scan of the brain shows no diagnostic evidence of acute cerebral infarction. Electronically signed by: Timmy Dubose MD 02/08/2024 11:18 AM [facility]
== END 2024-01-26 13:21 | disposition home or self-care (01) ==
LOC: HO.CT 13:20
PROVIDERS: Visit Provider Internal Medicine
DX: S02.19XD Other fracture of base of skull, subsequent encounter for fracture with routine healing (principal); I60.9 Nontraumatic subarachnoid hemorrhage, unspecified
CPT/HCPCS: 70450

== ENCOUNTER 2024-01-30 15:20 | Outpatient (REF) | payer MEDICARE, MEDICAID, SELFPAY ==
[2024-01-30 17:06] LABS: PSA,Total (Free>4and<10) 5.07 ng/mL (0.00-4.00)
[2024-02-01 12:13] LABS: Free Prostate Spec Ag 0.4 ng/mL; Percent Free Prostate Spec Ag 8 % (calc) (>25)
== END 2024-01-30 15:21 | disposition home or self-care (01) ==
LOC: HO.LAB 15:20
PROVIDERS: PCP Internal Medicine; Visit Provider Urology
DX: R97.20 Elevated prostate specific antigen [PSA] (principal); Z12.5 Encounter for screening for malignant neoplasm of prostate
CPT/HCPCS: 36415; 84153; 84154

== ENCOUNTER 2024-02-07 11:20 | Outpatient (REF) | payer MEDICARE, MEDICAID, SELFPAY ==
[2024-02-07 13:14] LABS: MANUAL DIFF FLAG NO
[2024-02-07 13:28] LABS: Basophils Percent Auto 0.3 % (0-2); Eosinophils Absolute Auto 0.2 X10*3/uL (0.0-0.4); Eosinophils Percent Auto 1.6 % (0-4); Hematocrit 31.6 % (42.0-52.0); Hemoglobin 9.7 g/dl (14.0-18.0); Imm Gran Abs Auto 0.04 X10*3/uL (0.00-0.03); Imm Gran Pct Auto 0.4 % (0.0-0.4); Lymphocytes Absolute Auto 3.2 X10*3/uL (1.2-4.9); Mean Corpuscular HGB Conc 30.7 g/dl (31.0-36.0); Mean Corpuscular Hemoglobin 24.6 pg (27.0-33.0); Mean Corpuscular Volume 80.2 fL (80.0-98.0); Mean Platelet Volume 9.9 fL (9.4-12.4); Monocytes Absolute Auto 0.8 X10*3/uL (0.1-1.2); Neutrophils Absolute Auto 5.1 x10*3/uL (2.0-8.3); Neutrophils Percent Auto 54.7 % (45-73); Platelet Count 237 X10*3/uL (160-400); Red Blood Count 3.94 X10*6/uL (4.60-5.80); Red Cell Distribution Width 15.8 % (11.0-16.0); White Blood Count 9.3 X10*3/uL (4.8-10.8)
[2024-02-10 05:28] LABS: TS Negative Control Passed; TS Panel A 0; TS Panel B 0; TS Positive Control Passed; TSpotTB Negative (Negative)
== END 2024-02-07 11:21 | disposition home or self-care (01) ==
LOC: HO.HHCL 11:20
PROVIDERS: Visit Provider Internal Medicine
DX: Z00.00 Encounter for general adult medical examination without abnormal findings (principal); I60.9 Nontraumatic subarachnoid hemorrhage, unspecified
CPT/HCPCS: 36415; 85025; 86481

== ENCOUNTER 2024-03-26 11:41 | Outpatient (AMB) | payer MEDICARE, MEDICAID, SELFPAY ==
--- NOTE | 2024-03-26 11:47 | A.OFFVIS_ITS ---
Intake Visit Reasons: 9M PSA(set)Elevated Intake Note: Patient is present for 9M PSA Urology Medication:NONE Antibiotic Allergy:NONE Blood Thinner:ASPIRIN Brim Presser Required: No Allergies lisinopril Adverse Reaction (Unknown, Verified 03/27/24 19:36) cough HPI Comments Details: Brady is a pleasant male. He is a patient of Dr. Dominguez. He is seen for the following urologic conditions - BPH - overactive bladder - elevated PSA PSA stable Continue with combination medications Six-month follow-up Now lives in a prison. Had previously been cared for by brother. Background of developmental delay and seizure. Nocturia 2-3 times per evening Continue combination therapy finasteride, terazosin 1 mg and tolterodine 4 mg b.i.d. Lower urinary tract symptoms Longstanding weakness of stream and urinary frequency Underwent laser prostatectomy with bladder neck incision 2018 PSA- historically in the 3 range - 01/21 5.2, 07/23 4.8, 01/22 5.9 15%, 09/23 4.0 10%, 04/26 5.1 8%, 01/24 5.0 8% Postprocedure urgency and frequency Good response to combination terazosin 1 mg and tolterodine 4 mg b.i.d. Remains on finasteride for large PSA Continue current therapy review in 6 months [facility] Medical History Abnormal gait Anodontia HTN (hypertension) Diabetes Affective disorder Schizophrenia Tubular adenoma Hyperlipemia Seizure disorder BPH (benign prostatic hyperplasia) Frequency of urination Surgical History Hx of colonoscopy Family History Unknown No problems noted. 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 Household Members Other:: prison Unable to assess alcohol history related to: Unable to respond Alcohol intake: never Patient Tobacco Use Status: Never used Tobacco Smoked in Last 30 Days: No Use of substances other than those prescribed or required for medical reasons: No Advance Directives: Yes Advance Directives on File: Yes Advance Directives Date on File: 08/11/22 Do you have a plan to hurt others: No Plan Review of Systems Const Denies chills and Denies fever(s) Card Reports no additional complaints and Denies syncope Resp Denies cough GI Denies abdominal pain and Denies heartburn Reports as per HPI and Denies change in libido Neuro Denies syncope Psych Denies change in libido Endo Denies change in libido Physical Exam Const General: cooperative, healthy appearing, comfortable and no acute distress Orientation/consciousness: patient oriented x3 HEENT Face and sinus: Yes normal facial exam Mouth: moist mucous membranes Neck Neck: Yes normal visual inspection, Yes full ROM and Yes trachea midline Chest Chest palpation & inspection: normal inspection of the chest Resp Effort & Inspection: normal respiratory effort, able to speak in complete sentences and no respiratory distress GI Inspection: Yes normal to inspection Back/Spine/Pelvis Cervical Spine: normal cervical lordosis Thoracic/Lumbar Spine: thoracic and lumbar spine normal to inspection Skin General skin exam: no rashes or lesions noted Neuro General: patient oriented x3, gait normal, tone normal and moves all extremities Extrem General: Yes normal to inspection and Yes capillary refill normal Assessment & Plan Assessment & Plan (1) BPH (benign prostatic hyperplasia): Code(s): N40.0 - Benign prostatic hyperplasia without lower urinary tract symptoms Category: Medical (2) Overactive bladder: Code(s): N32.81 - Overactive bladder Category: Medical (3) Elevated PSA: Code(s): R97.20 - Elevated prostate specific antigen [PSA] Category: Medical Plan Six-month follow-up PSA Orders: Orders PSA,Total (Free>4and<10) 6 Months R97.20 - Elevated prostate specific antigen [PSA] AMB Urinalysis Automated 03/26/24 Z13.9 - Encounter for screening, unspecified Patient Instructions: Imaging studies, laboratory and physical exam results were discussed and reviewed in detail. No major barriers to patient understanding were identified. An opportunity to ask questions regarding the treatment plan was provided. All questions were answered. The patient expressed understanding and agreement with the above treatment plan. The patient is aware they should contact our office by phone for worsening of their current condition or the appearance of new urologic symptoms. Compliance is encouraged with any medications and followup testing that is ordered. It is a privilege to participate in the urologic care of your patient. If you h ave any questions or concerns regarding treatment for the above conditions, or other urologic issues, please do not hesitate to contact me. The office telephone contact is [phone]. This note is constructed using voice recognition software. While every effort has been made to ensure accuracy contact lens flashing puncher errors may have been included. Yours sincerely, Dr Abbe Evans MD, [facility] - Urology Providers of Expert, Compassionate Care for the Genitourinary System Coding Level of Care Code Est Pt Level 3 (67564) Diagnoses BPH (benign prostatic hyperplasia) N40.0 Overactive bladder N32.81 Elevated PSA R97.20
== END 2024-03-26 12:34 | disposition home or self-care (01) ==
PROVIDERS: PCP Internal Medicine; Visit Provider Urology
DX: N40.0 Benign prostatic hyperplasia without lower urinary tract symptoms (principal); N32.81 Overactive bladder; R97.20 Elevated prostate specific antigen [PSA]
CPT/HCPCS: 99213

== ENCOUNTER → 2024-03-26 11:41 | Outpatient (BNVA) | payer MEDICARE, MEDICAID, SELFPAY | PROVIDERS: PCP Internal Medicine; Visit Provider Urology | DX: N40.0 Benign prostatic hyperplasia without lower urinary tract symptoms (principal); N32.81 Overactive bladder; R97.20 Elevated prostate specific antigen [PSA] | CPT/HCPCS: 99212 ==

== ENCOUNTER 2024-03-27 19:26 | Emergency (ER) | payer MEDICARE, MEDICAID, SELFPAY ==
--- NOTE | ~2024-03-27 | CT_ITS ---
EXAMINATION: HEAD CT WITHOUT CONTRAST CERVICAL SPINE CT WITHOUT CONTRAST CLINICAL INFORMATION: Fall COMPARISON: 01/26/2024 TECHNIQUE: Contiguous axial imaging of the head was performed without the administration of IV contrast. Axial multidetector volumetric images were also performed through the cervical spine without intravenous contrast. Multiplanar reconstructed images in coronal and sagittal orientations were submitted. This CT examination was performed using dose optimization techniques as appropriate, variously including the following: *Automated exposure control *Adjustment of mA and/or kV according to patient size (this includes techniques or standardized protocols for targeted exams where dose is matched to indication/reason for exam; i.e. extremities or head) *Use of iterative reconstruction technique. DOSE: 1129 mGy-cm FINDINGS: HEAD: There are a few new lobular foci of hyperdensity overlying the right posterior and right frontal lobes, most consistent with small foci of subarachnoid hemorrhage. No additional foci of intracranial hemorrhage are identified. No evidence of territorial infarction. Chronic encephalomalacia is again noted in the left frontal and temporal lobes as well as additional smaller foci in the right frontal lobe posteriorly. No abnormal mass-effect or midline shift. No extra-axial fluid collections. Borrero to white matter differentiation is well preserved. Marked enlargement of the ventricles, sulci, and extra-axial CSF spaces is indicative of parenchymal volume loss. Multiple areas of hypoattenuation in the subcortical and periventricular white matter are most consistent with chronic microangiopathic changes . Calcific atherosclerosis is present within the cavernous segments of the internal carotid arteries. Chronic soft tissue changes of prior scalp injury over the left posterior parietal region. No acute hematomas are identified. Calvarium appears intact. The sinuses and mastoid air cells are clear. CERVICAL SPINE: Vertebral body heights are normal. No fractures of the vertebral bodies or posterior elements. Mild anterolisthesis of C5 on C6 and C7 on T1, likely related to facet arthropathy. No acute subluxation. Degenerative osteophytes and sclerosis are present at the atlantodental articulation, though normal alignment is maintained. Craniocervical junction is normal. Moderate severe multilevel degenerative disc disease characterized by loss of intervertebral disc, large endplate osteophytes, marginal osteophytes, and sub-endplate cystic change. Severe facet arthropathy on the left at C5-C6 and C7-T1 and on the right at C7 Posterior disc osteophyte complexes and protrusion produce multilevel central canal stenoses, most severe at C4-C5. Uncovertebral and facet osteophytes produce marked multilevel bilateral neural foraminal stenoses, most notably from C3-C4 through C6-C7. No significant paravertebral soft tissue swelling. Atherosclerotic calcifications are present in the carotid arteries. Imaged portions of the lung apices are clear. CT/CT cervical spine wo IV con IMPRESSION: 1. A few small foci of subarachnoid hemorrhage overlying the right frontal and temporal lobes. No mass effect or midline shift. No additional acute intracranial abnormalities. 2. No acute fracture or acute malalignment in the cervical spine. 3. Marked cerebral atrophy and chronic white matter microangiopathy. 4. Chronic encephalomalacia in the left frontal and temporal lobes as well as smaller foci in the right frontal lobe. 5. Moderate to severe multilevel degenerative spondylosis in the cervical spine with multilevel central canal and neural foraminal stenoses. This critical result was discussed by telephone with Dr. Tobin on 03/27/2024 at 8:55 PM [employer]. Electronically signed by: Arvin Collier MD 03/27/2024 09:55 PM [facility]
[2024-03-27 19:29] VITALS: BP 117/53; PULSE 69; RESP 18; TEMP 36.1; O2SAT 97; BMI 32.3
--- NOTE | 2024-03-27 19:40 | ED.GENADULT ---
HPI - General Adult General Chief complaint: Fall Stated complaint: fell hit head Time Seen by Provider: 03/27/24 21:54 Source: patient, EMS, old records reviewed and assembler production line Mode of arrival: EMS Limitations: no limitations History of Present Illness ED Provider: DR. Dubose HPI narrative: 74-year-old male came in for evaluation after he sustained a mechanical fall while he was using the walker positive head injury, no LOC, unknown blood thinner. As reported by the assembler production line services patient was more awake while was in triage but now he is more lethargic and less oriented. Related Data Home Medications ?Medication ?Instructions ?Recorded ?Confirmed alcohol swabs pad topical 03/30/20 03/30/20 aspirin 81 mg tablet,delayed 81 mg PO QAM 03/30/20 08/08/22 release atorvastatin 40 mg tablet mg PO 03/30/20 03/30/20 blood-glucose meter #1 ea 03/30/20 03/30/20 folic acid 1 mg tablet 1 mg PO QAM 03/30/20 08/08/22 losartan 50 mg tablet 50 mg PO DAILY 03/30/20 08/08/22 omeprazole 20 mg capsule,delayed 20 mg PO DAILY 03/30/20 08/08/22 release metformin 850 mg tablet 850 mg PO BID 01/12/21 08/08/22 ammonium lactate 12 % topical cream 1 appl topical BID 07/13/21 08/08/22 ergocalciferol (vitamin D2) 1,250 1,250 mcg PO QWEEK 07/13/21 08/08/22 mcg (50,000 unit) capsule (Vitamin D2) lancets 28 gauge (Prodigy Twist #100 ea 07/13/21 Top Lancet) acetaminophen 325 mg tablet 650 mg PO QID PRN Pain 02/16/22 08/08/22 bacitracin 500 unit/gram topical topical 02/16/22 ointment guaifenesin 200 mg tablet 200 mg PO QID 02/16/22 08/08/22 phenobarbital 97.2 mg tablet 97.2 mg PO BEDTIME 02/16/22 08/08/22 phenytoin sodium extended 200 mg 200 mg PO BID 02/16/22 08/08/22 capsule Allergies Allergy/AdvReac Type Severity Reaction Status Date / Time lisinopril AdvReac Unknown cough Verified 12/25/24 19:36 Review of Systems Review of Systems: All other systems are reviewed and are negative Constitutional: Reports as per HPI and Reports no additional constitutional complaints Eyes: Reports as per HPI and Reports no additional eye complaints Reports system reviewed and no additional complaints, except as documented Cardiovascular: Reports as per HPI and Reports no additional cardiovascular complaints Respiratory: Reports as per HPI and Reports no additional respiratory complaints Gastrointestinal: Reports as per HPI and Reports no additional gastrointestinal complaints Genitourinary: Reports no additional female genitourinary complaints Musculoskeletal: Reports no additional musculoskeletal complaints Skin/Breast: Reports system reviewed and no additional complaints, except as docu Psychiatric: Reports no additional psychiatric complaints Endocrine: Reports no additional endocrine complaints Hematologic/Lymphatic: Reports no additional hematologic/lymphatic complaints Allergic/Immunologic: Reports no additional allergic/immunologic complaints Reports system reviewed and no additional complaints, except as documented and Reports Abnormal speech present [facility] Past Medical History Medical History Abnormal gait Anodontia HTN (hypertension) Diabetes Affective disorder Schizophrenia Tubular adenoma Hyperlipemia Seizure disorder BPH (benign prostatic hyperplasia) Frequency of urination Surgical History Hx of colonoscopy Family History Family History Unknown No problems noted. 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 Members Other:: detention Unable to assess alcohol history related to: Unable to respond Alcohol intake: never Patient Tobacco Use Status: Never used Tobacco Smoked in Last 30 Days: No Use of substances other than those prescribed or required for medical reasons: No Advance Directives: Yes Advance Directives on File: Yes Advance Directives Date on File: 08/11/22 Do you have a plan to hurt others: No Plan Physical Exam ED Vital Signs: Vital Signs - 24 hr 03/27/24 19:29 03/27/24 21:12 03/27/24 22:21 Temperature 97.0 F 98.6 F Pulse Rate 69 70 70 Respiratory Rate 18 18 13 Blood Pressure 117/53 L 138/71 Pulse Oximetry 97 94 99 Oxygen Delivery Method Room Air Room Air Room Air 03/28/24 00:09 12/26/24 00:36 Temperature 97.6 F 97.6 F Pulse Rate 72 72 Respiratory Rate 14 14 Blood Pressure 140/77 H 140/77 H Pulse Oximetry 98 98 Oxygen Delivery Method Room Air Room Air BMI result Body Mass Index 32.3 Vital signs have been reviewed and appear to be correct. Blood pressure elevated. Heart rate normal. Respiratory rate normal. Temperature normal. Oxygen saturation normal. Appearance: Sleeping, arouses with sternal rubbing, No acute distress. Head: Normal external exam. Normocephalic. Atraumatic. No Lozoya signs noted. No raccoon eyes noted Eyes: PERRLA. EOMI. Conjunctiva and sclera normal. Eyelids normal. ENT: TM's Normal. Pharynx normal. Uvula midline. Moist mucous membranes. No trismus noted. No drooling noted. No muffled voice noted. Neck: Normal inspection. Neck supple. FROM. No adenopathy. Thyroid Normal. No meningeal signs. No neck mass noted. CVS: Normal heart rate and rhythm. Heart sound normal. No murmurs noted. Pulses normal throughout. Respiratory: No respiratory distress. Painless inspiration. Breath sounds normal. No wheezes/rales/rhonchi noted. Chest nontender. No accessory muscle usage noted or decreased air movement noted. Abdomen: Soft and nontender. Bowel sounds normal in all 4 quadrants. No distention noted. No organomegaly noted. No visible injury noted. Back: No CVA tenderness. Full range of motion noted. Skin: Skin warm and dry. Normal skin color. Normal skin turgor. No rashes/lesions/lacerations noted. Extremities: No lower extremity edema. Extremities exhibit normal range of motion. Extremities nontender. Neuro: GCS of 15. Cranial nerve exam: II-XII are grossly intact No motor deficit. No sensory deficit. Reflexes normal. Course Course Course Narrative: RME: 74 yold male presents to the ED for fall that witsnesseed. Patient fell due to tripping over walking. head CT and cervical C-spine ordered. Reevaluation(s) Reevaluation #1: [age] male s/p mechanical fall with right frontal small subarachnoid hemorrhage, case discussed with at [facility] who accepted the patient to be transferred for further trauma evaluation. Patient GCS is 15, close monitoring to neuro exam and mental status until transportation. Time: 23:07 Medical Decision Making Differential Diagnosis Differential Diagnoses: The differential diagnosis associated with the presentation includes (Subarachnoid hemorrhage, intracranial bleed, cervical spine injury, electrolyte derangement, chest injury, neck injury, extremity injury, abdominal injury.) Admission/Observation Consideration of admission/observation: Escalation of care including admission/observation considered Lab Data MDM Lab Attestation statement: I reviewed the patient's lab results. 03/27/24 22:16 03/27/24 22:16 Labs: Lab Results 03/27/24 03/27/24 Range/Units 22:16 22:22 WBC 8.8 (4.8-10.8) X10*3/uL RBC 3.95 L (4.60-5.80) X10*6/uL Hgb 9.8 L (14.0-18.0) g/dl Hct 31.8 L (42.0-52.0) % MCV 80.5 (80.0-98.0) fL MCH 24.8 L (27.0-33.0) pg MCHC 30.8 L (31.0-36.0) g/dl RDW 17.0 H (11.0-16.0) % Plt Count 288 (160-400) X10*3/uL MPV 9.7 (9.4-12.4) fL Immature Gran % (Auto) 0.2 (0.0-0.4) % Neut % (Auto) 67.9 (45-73) % Lymph % (Auto) 22.5 (20-40) % Reagan % (Auto) 6.9 (2-11) % Eos % (Auto) 2.0 (0-4) % Baso % (Auto) 0.5 (0-2) % Lymph # (Auto) 2.0 (1.2-4.9) X10*3/uL Reagan # (Auto) 0.6 (0.1-1.2) X10*3/uL Eos # (Auto) 0.2 (0.0-0.4) X10*3/uL Baso # (Auto) 0.0 (0.0-0.2) X10*3/uL Abs Immat Gran (auto) 0.02 (0.00-0.03) X10*3/uL Absolute Neuts (auto) 6.0 (2.0-8.3) x10*3/uL Absolute Nucleated RBC 0.000 (0.0-0.012) X10*3/uL Nucleated RBC % (auto) 0.0 (0.0-0.2) /100WBC PT 11.9 (10.9-12.4) SEC INR 1.0 (0.9-1.1) Sodium 139 (135-145) mmol/L Potassium 4.7 (3.3-5.1) mmol/L Chloride 102 (96-108) mmol/L Carbon Dioxide 26 (22-29) mmol/L Anion Gap 16 (12-20) BUN 20 H (9-16) mg/dL Creatinine 1.11 (0.5-1.4) mg/dL Estim Creat Clear Calc 59.7 Estimated GFR > 60 Random Glucose 158 H (60-115) mg/dL Calcium 9.1 (8.4-10.2) mg/dL Total Bilirubin 0.2 (0.0-1.0) mg/dL AST 44 H (5-37) U/L ALT 39 (0-40) U/L Alkaline Phosphatase 139 H (39-117) U/L Troponin I High Sens < 2.7 (<3.5-35.0) ng/L Total Protein 7.6 (6.5-8.0) g/dL Albumin 3.8 (3.5-5.0) g/dL Influenza Type A (PCR) NEGATIVE (Negative) Influenza Type B (PCR) NEGATIVE (Negative) RSV RNA Qual (PCR) NEGATIVE (Negative) SARS-CoV-2 RNA (RT-PCR) NEGATIVE (Negative) Independent Interpretation I performed an independent interpretation of an: CT Scan (Head/cervical spine:1. A few small foci of subarachnoid hemorrhage overlying the right frontal and temporal lobes. No mass effect or midline shift. No additional acute intracranial abnormalities. 2. No acute fracture or acute malalignment in the cervical spine. 3. Marked cerebral atrophy and ch) Radiology Impression Discussion of test interpretation with radiology: I have reviewed the radiologist's reading. Discharge Plan Discharge Clinical Impression: Traumatic subarachnoid hemorrhage Patient Disposition: [facility] Transfer Details: [facility] Emergency Department. Prescriptions: No Action omeprazole 20 mg capsule,delayed release(DR/EC) 20 mg PO DAILY atorvastatin 40 mg tablet PO folic acid 1 mg tablet 1 mg PO QAM aspirin 81 mg tablet,delayed release (DR/EC) 81 mg PO QAM alcohol swabs Pads, Medicated topical (DME) blood-glucose meter Kit See Rx Instructions Not Applicable BID Qty: 1 Rx Instructions: As directed losartan 50 mg tablet 50 mg PO DAILY metformin 850 mg tablet 850 mg PO BID ammonium lactate 12 % cream 1 appl topical BID ergocalciferol (vitamin D2) [Vitamin D2] 1,250 mcg (50,000 unit) capsule 1,250 mcg PO QWEEK (DME) lancets [Prodigy Twist Top Lancet] 28 gauge misc See Rx Instructions .ROUTE .MEDSUPPLY Qty: 100 Rx Instructions: As directed acetaminophen 325 mg tablet 650 mg PO QID PRN (Reason: Pain) bacitracin 500 unit/gram ointment topical guaifenesin 200 mg tablet 200 mg PO QID phenobarbital 97.2 mg tablet 97.2 mg PO BEDTIME phenytoin sodium extended 200 mg capsule 200 mg PO BID Interventions: Acute Care Transfer Worksheet (ED) Last Done: 03/28/24 00:36 Discharge Date/Time: 03/28/24 00:37 Print Language: Sri Lankan
[2024-03-27 21:12] VITALS: BP 138/71; PULSE 70; RESP 18; O2SAT 94
--- NOTE | 2024-03-27 22:15 | ECG_ITS ---
Test Reason : Fall Blood Pressure : / mmHG Vent. Rate : 070 BPM Atrial Rate : 000 BPM P-R Int : 000 ms QRS Dur : 088 ms QT Int : 396 ms P-R-T Axes : 000 011 040 degrees QTc Int : 427 ms Accelerated Junctional rhythm Abnormal ECG When compared with ECG of 05-DEC-2023 14:03, Junctional rhythm has replaced Sinus rhythm Referred By: Jean Dubose Electronically Signed By:Wilmer Lorenzo
[2024-03-27 22:20] LABS: MANUAL DIFF FLAG NO
[2024-03-27 22:21] VITALS: PULSE 70; RESP 13; TEMP 37; O2SAT 99
[2024-03-27 22:24] LABS: Basophils Percent Auto 0.5 % (0-2); Eosinophils Absolute Auto 0.2 X10*3/uL (0.0-0.4); Hematocrit 31.8 % (42.0-52.0); Hemoglobin 9.8 g/dl (14.0-18.0); Imm Gran Abs Auto 0.02 X10*3/uL (0.00-0.03); Imm Gran Pct Auto 0.2 % (0.0-0.4); Lymphocytes Percent Auto 22.5 % (20-40); Mean Corpuscular HGB Conc 30.8 g/dl (31.0-36.0); Mean Corpuscular Hemoglobin 24.8 pg (27.0-33.0); Mean Corpuscular Volume 80.5 fL (80.0-98.0); Mean Platelet Volume 9.7 fL (9.4-12.4); Monocytes Absolute Auto 0.6 X10*3/uL (0.1-1.2); Monocytes Percent Auto 6.9 % (2-11); Neutrophils Percent Auto 67.9 % (45-73); Platelet Count 288 X10*3/uL (160-400); Red Blood Count 3.95 X10*6/uL (4.60-5.80); White Blood Count 8.8 X10*3/uL (4.8-10.8)
[2024-03-27 22:35] LABS: Alanine Aminotransferase 39 U/L (0-40); Albumin Level 3.8 g/dL (3.5-5.0); Alkaline Phosphatase 139 U/L (39-117); Anion Gap 16 (12-20); Aspartate Amino Transferase 44 U/L (5-37); Bilirubin Total 0.2 mg/dL (0.0-1.0); Blood Urea Nitrogen 20 mg/dL (9-16); Calcium 9.1 mg/dL (8.4-10.2); Carbon Dioxide 26 mmol/L (22-29); Chloride 102 mmol/L (96-108); Creatinine Clr Calc Pharmacy 59.7; Estimated Glomerular Filt Rate > 60; Glucose Random 158 mg/dL (60-115); Potassium 4.7 mmol/L (3.3-5.1); Sodium 139 mmol/L (135-145); Total Protein 7.6 g/dL (6.5-8.0)
--- NOTE | 2024-03-27 22:37 | PC.NURSE ---
Per Dr. Dubose, plan for neuro assessments q 15 min, patient to be transported to [facility] for subarachnoid hemorrhage.
[2024-03-27 22:46] LABS: Prothrombin Time 11.9 SEC (10.9-12.4)
[2024-03-27 23:00] LABS: Troponin-I High Sensitivity < 2.7 ng/L (<3.5-35.0)
[2024-03-27 23:07] LABS: Influenza A PCR NEGATIVE (Negative); Influenza B PCR NEGATIVE (Negative); Resp Syncy Virus RNA Qual PCR NEGATIVE (Negative); SARS COV2 PCR INHOUSE NEGATIVE (Negative)
[2024-03-28 00:09] VITALS: BP 140/77; PULSE 72; RESP 14; TEMP 36.4; O2SAT 98
--- NOTE | 2024-03-28 00:31 | PC.NURSE ---
Nurse to nurse report given to ISSA Gonzalez at [facility] ED.
[2024-03-28 00:36] VITALS: BP 140/77; PULSE 72; RESP 14; TEMP 36.4; O2SAT 98
== END 2024-03-28 00:37 | disposition short-term general hospital (02) ==
PROVIDERS: Emergency Provider Emergency Medicine; PCP Internal Medicine
DX: S06.6XAA Traumatic subarachnoid hemorrhage with loss of consciousness status unknown, initial encounter (principal); R94.31 Abnormal electrocardiogram [ECG] [EKG]; R40.2410 Glasgow coma scale score 13-15, unspecified time; W18.30XA Fall on same level, unspecified, initial encounter; Y93.89 Activity, other specified; Y92.89 Other specified places as the place of occurrence of the external cause; Y99.8 Other external cause status; Z79.899 Other long term (current) drug therapy; Z03.818 Encounter for observation for suspected exposure to other biological agents ruled out
CPT/HCPCS: 0241U; 36415; 70450; 72125; 80053; 84484; 85025; 85610; 93005; 99285

== ENCOUNTER → 2024-03-27 22:15 | Outpatient (BNV) | payer MEDICARE, MEDICAID, SELFPAY | PROVIDERS: Emergency Provider Emergency Medicine; PCP Internal Medicine; Visit Provider Internal Medicine Cardiovascular Disease | DX: I44.0 Atrioventricular block, first degree (principal) | CPT/HCPCS: 93010 ==

== ENCOUNTER 2024-04-15 14:23 | Outpatient (REF) | payer MEDICARE, MEDICAID, SELFPAY ==
--- NOTE | ~2024-04-15 | XR_ITS ---
EXAMINATION: XR KNEE 3 VIEWS RIGHT HISTORY: pain COMPARISON: There are no prior studies available for comparison. FINDINGS: Three views of the right knee are submitted. Osseous mineralization is normal. There is no fracture or dislocation. The joint spaces are preserved. There is no joint effusion. There are vascular calcifications. XR/XR knee RT 3V IMPRESSION: Unremarkable examination of the right knee. Electronically signed by: Ziyad Sheth MD 04/15/2024 02:45 PM [facility]
== END 2024-04-15 14:24 | disposition home or self-care (01) ==
LOC: HO.HHCX 14:23
PROVIDERS: Visit Provider Internal Medicine
DX: M25.561 Pain in right knee (principal); G89.29 Other chronic pain
CPT/HCPCS: 73562

== ENCOUNTER → 2024-04-15 14:24 | Outpatient (BNV) | payer MEDICARE, MEDICAID, SELFPAY | PROVIDERS: Visit Provider Radiology Diagnostic Radiology | DX: M25.561 Pain in right knee (principal) | CPT/HCPCS: 73562 ==

== ENCOUNTER 2024-11-07 10:51 | Outpatient (AMB) | payer MEDICARE, MEDICAID, SELFPAY ==
--- NOTE | 2024-11-07 11:10 | MHC.OFFVIS ---
Intake Visit Reasons: 6 Months F/U Accompanied by: Staff Member Allergies lisinopril Adverse Reaction (Unknown, Verified 03/27/24 19:36) cough Medication List - Last Reconciled 11/07/24 by Melba Chun CNP acetaminophen 650 mg PO QID PRN alcohol swabs pad topical ammonium lactate 12% 1 appl topical BID aspirin 81 mg PO QAM atorvastatin mg PO bacitracin topical blood-glucose meter As directed ergocalciferol (vitamin D2) (Vitamin D2) 1,250 mcg PO QWEEK finasteride 5 mg PO DAILY 90 days folic acid 1 mg PO QAM guaifenesin 200 mg PO QID lancets (Prodigy Twist Top Lancet) As directed losartan 50 mg PO DAILY metformin 850 mg PO BID omeprazole 20 mg PO DAILY phenobarbital 129.6 mg PO BEDTIME phenytoin sodium extended 200 mg PO BID terazosin 1 mg PO DAILY 90 days tolterodine ER 4 mg PO BID 90 days HPI Comments Details: 74-year-old man with h/o chronic static encephalopathy of unknown cause, diabetes, hypercholesterolemia, obesity, multiple left hemispheric cerebral infarctions, cerebral and cerebellar atrophy and epilepsy. He was doing okay. No recent seizures. No medication side effects. Sleep was okay. Mood was okay. [facility] Medical History Abnormal gait Anodontia HTN (hypertension) Diabetes Affective disorder Schizophrenia Tubular adenoma Hyperlipemia Seizure disorder BPH (benign prostatic hyperplasia) Frequency of urination Surgical History Hx of colonoscopy Family History Unknown No problems noted. 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 Household Members Other:: [facility] Unable to assess alcohol history related to: Unable to respond Alcohol intake: never Patient Tobacco Use Status: Never used Tobacco Advance Directives Date on File: 08/11/22 Review of Systems Const Denies chills, Denies daytime sleepiness, Denies difficulty sleeping, Denies fatigue, Denies fever(s), Denies frequent falls, Denies headache(s), Denies increased appetite, Denies poor appetite, Denies snoring, Denies weakness, Denies weight gain and Denies weight loss Eyes Denies loss of vision ENT Denies vertigo, Denies dizziness and Denies headache(s) Card Denies chest pain at rest, Denies chest pain with activity, Denies syncope, Denies leg edema and Denies palpitations Resp Denies snoring GI Denies constipation, Denies heartburn, Denies diarrhea and Denies nausea Denies urinary frequency, Denies urinary incontinence and Denies urinary urgency Musc Denies abnormal gait, Denies numbness and Denies tingling Skin/Breast Denies dry skin and Denies rash Neuro Denies abnormal gait, Denies vertigo, Denies dizziness, Denies syncope, Denies frequent falls, Denies headache(s), Denies lack of coordination, Denies loss of vision, Denies memory loss, Denies numbness, Denies restless legs, Denies seizure-like activity, Denies tingling, Denies paresthesias, Denies tremor(s) and Denies weakness Psych Denies anxiety, Denies depression, Denies auditory hallucinations, Denies memory loss, Denies visual hallucinations and Denies suicidal ideation Endo Denies fatigue and Denies palpitations Physical Exam Const Other: General Appearance:? normal, in no acute distress. Skin:? no rashes, no significant birthmarks. Heart:? S1, S2 normal, no murmurs. Lungs:? clear anteriorly and posteriorly. Extremities:? no edema. Psych:? alert, oriented, cognitive function intact, cooperative with exam. Neuro Other: Mental Status:?Alert and awake with no anxiety or agitation.? Cranial Nerves:?Pupils are equal, round and reactive to light. External occular muscles are intact. Visual serrato are full. Face is symmetrical. Facial sensations are normal. Tongue is midline. Palate elevates symmetrically. Shoulder shrugging is normal. Hearing to bedside conversation is normal. Coordination:?No ataxia,?no titubation.? Gait Exam: In wheelchair. Extrapyramidal System:?No tremor, rigidity with normal facial expressions.? Pronator Drift:?Not present.? Involuntary Movements:?No tremors seen.? Speech:?Normal.? Results Reviewed Results Reviewed: Head CT in 2003 in [facility]: Old infarcts in left frontal and temporal lobes and cerebral and cerebellar atrophy. CTA head/neck at [facility] in Dec 2023: Nondisplaced fracture at left temporal bone. Focal areas of hyperdensities noted at left anterior lateral frontal lobe and left posterior lateral temporal lobe respectively which may represent either acute subarachnoid hemorrhage or intraparenchymal hematomas. No high-grade stenosis of the major branches of the intracranial arteries?(reported) Assessment & Plan Assessment & Plan (1) Epilepsy: Code(s): G40.909 - Epilepsy, unspecified, not intractable, without status epilepticus Category: Medical Qualifiers: Epilepsy type: unspecified Intractability: not intractable Status epilepticus: without status epilepticus Qualified Code(s): G40.909 - Epilepsy, unspecified, not intractable, without status epilepticus Plan: Continue phenobarbital 32.4 4 tablets orally at bedtime Continue phenytoin sodium extended capsule 100mg 2 capsules orally twice a day Continue folic acid 1mg 1 tablet orally daily (2) Cerebral palsy: Code(s): G80.9 - Cerebral palsy, unspecified Category: Medical Qualifiers: Cerebral palsy type: unspecified type Qualified Code(s): G80.9 - Cerebral palsy, unspecified Plan . Coding Level of Care Code Est Pt Level 4 (55226) Diagnoses Nonintractable epilepsy without status epilepticus, unspecified epilepsy type G40.909 Epilepsy type: unspecified Intractability: not intractable Status epilepticus: without status epilepticus Cerebral palsy, unspecified type G80.9 Cerebral palsy type: unspecified type
--- OUTSIDE RECORDS SUMMARY | 2024-11-07 11:34 | XMS_ITS | Encounter Summary ---
Author Organization [employer] Address [address] [place] [address] Care Team Providers Care Waterproof Material Folder Name Role Phone Haley Dominguez MD Primary Care Provider + Reason for Visit * Reason Comments Med Refill Encounter Details Date Type Department Care Team (Late st Contact Info) Description 10/12/2023 Refill [facility] [address], [place] [id number] Shira Nova FNP [address] [place] [address] Social History Tobacco Use Types Packs/Day Years Used Date Smoking Tobacco: Never Smokeless Tobacco: Never Alcohol Use Standard Drinks/Week Comments Never 0 (1 standard drink = 0.6 oz pur e alcohol) Depression Answer Date Recorded Patient Health Questionnaire-9 Score 1 07/05/2022 Housing Stability Answer Date Recorded What is your housing situation today? I have brandon [facility]oses 01/19/[address] you li ve. Do you have problems with any of the following? None of the above 01/19/2023 Food Insecurity Answer Date Recorded Within the past 12 months, y ou worried that your food would run out before you got money to buy more: Never True 01/19/2023 Within the past 12 months,th e food you bought just didn't last and you didn't have enough money to get more: Never True Transportation Answer Date Recorded In the past 12 months, has l ack of transportation kept you from medical appts, meetings, work or from getting things needed for daily living? No 01/19/2023 Utilities Answer Date Recorded In the past 12 months, has t he electric, gas, oil or water company threatened to shut off services in your home? No 01/19/2023 Depression Answer Date Recorded Patient Health Questionnaire-2 Score 0 10/12/2023 Sex and Gender Information Value Date Recorded Sex Assigned at Male 01/31/2022 10:17 AM EDT Legal Sex Male 10:17 AM EDT Gender Identity Male 01/31/2022 10:17 AM EDT Sexual Orientation Choose not to disclose 2021 10:17 AM EDT documented as of this encounter Functional Status * Over the past 2 weeks, how often have you been bothered by any of the following problems? Question Answer Date of Assessment Author Little interest or pleasure in doing things Not at all 10/12/2023 10:46 AM EDT Giovanna Chacon MA Feeling down, depressed, or hopeless Not at all 10/12/2023 10:46 AM EDT Giovanna Chacon MA Patient Health Questionnaire-2 Score 0 10/12/2023 10:46 AM EDT Len Chacon MA documented as of this encounter Plan of Treatment Upcoming Encounters Date Type Department Care Team (Late st Contact Info) Description 01/02/2025 10:30 AM EDT Office Visit [facility] [address] [place] [address] Haley Dominguez MD [address] [place] [address] documented as of this encounter Visit Diagnoses Not on filedocumented in this encounter Additional Health Concerns Assessment Noted Time PHQ-9 Depression Total Score: 1 07/06/19 23 9:47 AM EDT documented as of this encounter Care Teams Waterproof Material Folder Relationship Specialty Start Date End Date Haley Dominguez MD [address] [place] [address] PCP - General Family Medicine 11/13/17 documented as of this encounter
== END 2024-11-07 11:21 | disposition home or self-care (01) ==
LOC: HO.HSM 10:52
PROVIDERS: PCP Family Medicine; Referring Provider Family Medicine; Visit Provider Registered Nurse
DX: G40.909 Epilepsy, unspecified, not intractable, without status epilepticus (principal); G80.9 Cerebral palsy, unspecified
CPT/HCPCS: 99214

== ENCOUNTER → 2024-11-07 10:51 | Outpatient (BNVA) | payer MEDICARE, MEDICAID, SELFPAY | PROVIDERS: PCP Family Medicine; Referring Provider Family Medicine; Visit Provider Registered Nurse | DX: G40.909 Epilepsy, unspecified, not intractable, without status epilepticus (principal); G80.9 Cerebral palsy, unspecified; Z79.82 Long term (current) use of aspirin; Z79.84 Long term (current) use of oral hypoglycemic drugs; Z79.899 Other long term (current) drug therapy | CPT/HCPCS: 99212 ==

== ENCOUNTER 2024-12-12 15:00 | Outpatient (RCR) | payer MEDICARE, MEDICAID, SELFPAY | END 2025-01-21 11:01 | disposition home or self-care (01) | LOC: HO.PT 15:00 | PROVIDERS: PCP Internal Medicine; Visit Provider Internal Medicine | DX: R26.9 Unspecified abnormalities of gait and mobility (principal); I67.89 Other cerebrovascular disease; Z91.81 History of falling | CPT/HCPCS: 97110; 97112; 97163; 97530; 97535 ==

== ENCOUNTER 2025-01-06 12:01 | Outpatient (REF) | payer MEDICARE, MEDICAID, SELFPAY ==
--- OUTSIDE RECORDS SUMMARY | 2025-01-06 10:45 | XMS_ITS | Encounter Summary ---
Author Organization [employer] Address [address] [facility] 7[address] [place] [address] Care Team Providers Care Residential Construction Instructor Name Role Phone Haley Dominguez MD Primary Care Provider + Encounter Details Date Type Department Care Team ([facility] st Contact Info) Description 01/06/2025 10:45 AM EDT Office Visit 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); Encounter for preventive health examination; Diarrhea, unspecified type; Other fatigue; Risk for falls; Memory impairment; Encounter for vaccination; Encounter for immunization Social History Tobacco Use Types Packs/Day Years [...] AM EDT documented as of this encounter Last Filed Vital Signs Vital Sign Reading Time Taken Comments Blood Pressure 122/62 01/06/2025 11:12 AM EDT Pulse 70 01/06/2025 11:12 AM EDT Temperature 36.5 C (97.7 F) 01/06/2025 11:12 AM EDT Respiratory Rate 14 01/06/2025 11:12 AM EDT Oxygen Saturation - - Inhaled Oxygen Concentration - - Weight - - Height - - Body Mass Index - - documented in this encounter Progress Notes * Haley Dominguez MD - 01/06/2025 10:45 AM EDT SUBJECTIVE: Brady Lott is a 74 y.o. year old male who presents for follow up dm. Denies recent illness, injury, or hospitalization. Patient here for a PE requested by his home care program. He is here with Yani Storey the care program director and Sully a staff coordinator. Overall he is doing well, he said he is very happy, he tells me that he eats well, feels comfortable at home and enjoys watching TV. Did not he tells me the patient is increasingly sleeping for short periods of times, spontaneously falls asleep for 5 or 10 minutes then wakes up during the daytime. They say he sleeps well overnight, sometimes will wake up 1 time and will call staff, then go back to sleep. They state that most of the time he wakes up easily, sometimes they had to check him enough and he wakes up as usual, deniesdiaphoresis, chest pain or shortness of breath. Had a seizure and overall he is doing well. Patient eats well, overall sleeping well, takes all his medications and does not have major behavioral issues. He walks at home with his walker most of the times and a take him out of the wheelchair for longer transfers due to risk of falls. They denie any recent fall. Acute Concerns: Social History Social History Narrative Not on file Problem List[1] Family History[2] Review of Systems Constitutional: Positive for fatigue. Negative for fever. HENT: Negative for congestion, ear pain, rhinorrhea and sore throat. Eyes: Negative for pain and discharge. Respiratory: Negative for cough and shortness of breath. Cardiovascular: Negative for chest pain. Gastrointestinal: Positive for diarrhea. Negative for abdominal pain, constipation and nausea. Endocrine: Negative for polydipsia. Genitourinary: Negative for dysuria and frequency. Musculoskeletal: Positive for gait problem. Negative for arthralgias, back pain and neck pain. Neurological: Negative for dizziness, numbness and headaches. Psychiatric/Behavioral: Positive for sleep disturbance. Negative for agitation. OBJECTIVE: Vitals: 01/06/25 1112 BP: 122/62 Pulse: 70 Resp: 14 Temp: 97.7 ??F (36.5 ??C) Physical Exam Constitutional: Appearance: Normal appearance. HENT: Right Ear: Tympanic membrane and ear canal normal. Left Ear: Tympanic membrane and ear canal normal. Mouth/Throat: Mouth: Mucous membranes are moist. Pharynx: No oropharyngeal exudate or posterior oropharyngeal erythema. Eyes: Pupils: Pupils are equal, round, and reactive to light. Cardiovascular: Rate and Rhythm: Normal rate and regular rhythm. Pulses: Dorsalis pedis pulses are 2+ on the right side and 2+ on the left side. Posterior tibial pulses are 2+ on the right side and 2+ on the left side. Heart sounds: No murmur heard. Pulmonary: Breath sounds: Normal breath sounds. No wheezing. Abdominal: General: Bowel sounds are normal. Palpations: Abdomen is soft. Tenderness: There is no abdominal tenderness. Musculoskeletal: General: No tenderness. Normal range of motion. Cervical back: Normal range of motion. No tenderness. Right foot: No deformity. Left foot: No deformity. Comments: He is in a wheelchair, unable to get up on his arm. Feet: Right foot: Protective Sensation: 7 sites tested. 7 sites sensed. Skin integrity: No ulcer or fissure. Toenail Condition: Right toenails are abnormally thick and long. Left foot: Protective Sensation: 7 sites tested. 7 sites sensed. Skin integrity: No ulcer or fissure. Toenail Condition: Left toenails are abnormally thick and long. Skin: General: Skin is warm. Neurological: General: No focal deficit present. Mental Status: He is alert. Mental status is at baseline. He is disoriented. Motor: Weakness (4/5 LE) present. Gait: Gait abnormal. Psychiatric: Mood and Affect: Mood normal. 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 Given history of weakness, I will lower medication to metformin XR 750 mg/D and follow-up in 3 months. Counseled re more frequent low calorie/carb meals. Check fgstk 1x daily + as PRN sxs dizziness, headache, weakness change in mental status including somnolence Encouraged physical activity as tolerated. FU in 3 months. Has an appointment with TBI clinic on March 2025, will obtain last year's OV notes Foot examination is normal, no diabetic neuropathy Dental examination up-to-date, recommended to have dental prophylaxis every 6 months Reminded them to make an appointment with floor tech (Dr. Rojas), last appointment was November2023 for toenail trimming He agreed to influenza and COVID immunization today, I will follow-up with Tdap and RSV at next appointment. Relevant Medications metFORMIN XR (Glucophage-XR) 750 MG 24 hr tablet Other Relevant Orders POCT Glucose (Completed) POCT Hgb A1c (Completed) Lipid Panel with Reflex to Direct LDL Comprehensive Metabolic Panel Albumin, Random Urine W/Creatinine Encounter for preventive health examination Discussed with patient and [facility] re increase fresh fruit and vegetable intake. Counseled re moderate exercise as tolerated, up to 20min/d, discussed with care program director and staff coordinator regarding risk of falls and prevention of fractures. Patient feels safe at home. Eye exam: Overdue according to care gaps,, will obtain OV notes from 2023, he has an appointment onDe2024 CRC screen: UTD, next one due on 2027 Lipids/FBS: UTD, next one is due prior to next visit. Vaccinations: COVID + flu IZs today, advised to have RSV and Tdap prior to next appointment or willfollow-up at next visit. dental visit: UTD, he is wearing dentures Diarrhea Unclear if related to metformin or other conditions DC metformin 1/5-day x 1 week, then restart extended release presentation observe symptoms Order stool test Relevant Orders Leukocytes Stool Qualitative Other fatigue Unclear if related to intermittent diarrhea/? Dehydration? Electrolyte disbalance versus hypoglycemia. I gave the medications to check fingersticks as needed symptoms Changed to extended release metformin as above. Advised regarding proper hydration, check color of the urine that should be clear yellow if patientproperly hydrated. Offer small infection meals, at least 3 or 4/day Order labs and follow-up after labs Relevant Orders CBC auto differential TSH with Reflex to Free T4 Risk for falls No recent falls since patient is using wheelchair for longer transfers and uses a walker at the [facility] foster home care program. Discussed with dry starch supervisor and staff coordinator regarding the importance of using ambulatory devices, prevention of falls, reconsult as needed for PT Memory impairment Patient has significant neurocognitive disorder, will need an Mini-Mental at next appointment. He is safe at home at [facility] where he is assisted on all his ADLs, family stays in touch. We discussed with home care staff regarding importance of fall and fracture prevention and prevention of further accidents. Will continue to optimize Rx of medical problems. 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) Cerebral microvascular disease Tubular adenoma Urge incontinence of urine Weight loss Risk for falls Encounter for preventive health examination Dysphagia Bilateral impacted cerumen Venous insufficiency of lower extremity Spondylosis of cervical region without myelopathy or radiculopathy Type 2 diabetes mellitus with hyperglycemia, without long-term current use of insulin (HCC) SAH (subarachnoid hemorrhage) ([facility]) Closed fracture of temporal bone with routine healing Iron deficiency anemia due to chronic blood loss Sleep disturbance Fall Chronic pain of right knee Other fatigue Diarrhea [2] No family history on file. [3] Current Outpatient Medications on File Prior to Visit Medication Sig Dispense Refill acetaminophen (Tylenol) 325 MG tablet Take 2 tablet by mouth every six hours as needed for pain 90 tablet 3 Alcohol Swabs (Alcohol Prep) pads Use 1 by to skin route 1 times every day aluminum & magnesium hydroxide-simethicone (Antacid Regular Strength) 200-200-20 MG/5ML oral suspension TAKE 2 TEASPOONS BY MOUTH UP TO 4 TIMES DAILY NEEDED AFTER MEALS AND AT BEDTIME FOR IDIGESTION AND HEARTBURN. *NOT TO EXCEED 8 TEASPOONS IN 24 HOURS* 360 mL 1 ammonium lactate (Amlactin) 12 % cream use daily in evening on dry skin including both feet 385 g 2 atorvastatin (Lipitor) 40 MG tablet TAKE 1 TABLET BY MOUTH DAILY AT BEDTIME AT 8 PM 30 tablet 3 bacitracin 500 UNIT/GM ointment AFTER FIRST CLEANING SUPERFICIAL WOUND WITH SOAP AND WATER, APPLY OINTMENT TO WOUND TWICE DAILY NEEDED. 28.4 g 0 Blood Glucose Monitoring Suppl (ZapMe Autocode Blood Glucose) w/Device kit 1 kit 2 times daily. 1kit 0 ergocalciferol (Vitamin D2) 1.25 MG (68989 UT) capsule TAKE 1 CAPSULE BY MOUTH ONCE WEEKLY 4 capsule 1 ferrous gluconate (Fergon) 324 (38 Fe) MG tablet TAKE 1 TABLET BY MOUTH DAILY WITH BREAKFAST 30 tablet 2 finasteride (Proscar) 5 MG tablet 5 mg. folic acid (Folvite) 1 MG tablet take 1 Tablet by Oral route every day glucose blood (ZapMe No Coding Blood Gluc) test strip USE 1 STRIP TO TEST BLOOD SUGAR TWICE DAILY. 50 strip 11 lidocaine (Lidoderm) 5 % patch Apply 1 patch topically Once per day. Remove & discard patch within 12 hours or as directed by MD. 15 patch 2 losartan (Cozaar) 50 MG tablet TAKE 1 TABLET BY MOUTH ONCE DAILY IN THE MORNING AT 8 AM 30 tablet 3 omeprazole (PriLOSEC) [address] capsule TAKE 1 CAPSULE BY MOUTH DAILY ONE HOUR BEFORE THE MORNING MEAL 30 capsule 5 PHENobarbital 32.4 MG tablet Take 4 tablets by mouth at bedtime. phenytoin ER (Dilantin) 100 MG capsule take 2 capsule by oral route 2 times every day [facility] Twist Top Lancets 28G misc USE TO TEST BLOOD SUGAR 2 TIMES A DAY 100 each 11 terazosin (Hytrin) 1 MG capsule 1 mg. tolterodine LA (Detrol LA) 4 MG 24 hr capsule 4 mg. [DISCONTINUED] metFORMIN (Glucophage) 850 MG tablet TAKE 1 TABLET BY MOUTH TWICE DAILY WITH THE MORNING AND EVENING MEALS 60 tablet 2 [DISCONTINUED] ammonium lactate (Amlactin) 12 % cream use daily in evening on dry skin including both feet 385 g 2 No current facility-administered medications on file prior to visit. documented in this encounter Miscellaneous Notes * Assessment & Plan Note - Haley Dominguez MD - 01/06/2025 1:00 PM EDT Associated Problem(s): Other fatigue Unclear if related to intermittent diarrhea/? Dehydration? Electrolyte disbalance versus hypoglycemia. I gave the medications to check fingersticks as needed symptoms Changed to extended release metformin as above. Advised regarding proper hydration, check color of the urine that should be clear yellow if patientproperly hydrated. Offer small infection meals, at least 3 or 4/day Order labs and follow-up after labs * Assessment & Plan Note - Haley Dominguez MD - 01/06/2025 12:59 PM EDT Associated Problem(s): Memory impairment Patient has significant neurocognitive disorder, will need an Mini-Mental at next appointment. He is safe at home at [facility] program where he is assisted on all his ADLs, family stays in touch. We discussed with home care staff regarding importance of fall and fracture prevention and prevention of further accidents. Will continue to optimize Rx of medical problems. * Assessment & Plan Note - Haley Dominguez MD - 01/06/2025 12:57 PM EDT Associated Problem(s): Encounter for preventive health examination Discussed with patient and [facility] re increase fresh fruit and vegetable intake. Counseled re moderate exercise as tolerated, up to 20min/d, discussed with care program director and staff coordinator regarding risk of falls and prevention of fractures. Patient feels safe at home. Eye exam: Overdue according to care gaps,, will obtain OV notes from 2023, he has an appointment onMarch 2025 CRC screen: UTD, next one due on 2027 Lipids/FBS: UTD, next one is due prior to next visit. Vaccinations: COVID + flu IZs today, advised to have RSV and Tdap prior to next appointment or willfollow-up at next visit. 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 Given history of weakness, I will lower medication to metformin XR 750 mg/D and follow-up in 3 months. Counseled re more frequent low calorie/carb meals. Check fgstk 1x daily + as PRN sxs dizziness, headache, weakness change in mental status including somnolence Encouraged physical activity as tolerated. FU in 3 months. Has an appointment with TBI clinic on March 2025, will obtain last year's OV notes Foot examination is normal, no diabetic neuropathy Dental examination up-to-date, recommended to have dental prophylaxis every 6 months Reminded them to make an appointment with floor tech (Dr. Rojas), last appointment was November2023 for toenail trimming He agreed to influenza and COVID immunization today, I will follow-up with Tdap and RSV at next appointment. * Assessment & Plan Note - Haley Dominguez MD - 01/06/2025 12:44 PM EDT Associated Problem(s): Risk for falls No recent falls since patient is using wheelchair for longer transfers and uses a walker at the [facility] home care program. 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) 01/06/2025 12:12 PM EDT TSH with Reflex to Free T4 Lab Routine Other fatigue 01/06/2025 12:12 PM EDT Scheduled Orders Name Type Priority Associated Diagnoses Orde r Schedule Leukocytes Stool Qualitative Lab Routine Diarrhea, unspecified type Expected: 01/06/2025, Expires: 01/06/2026 Albumin, Random Urine W/Creatinine Lab Routine 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) Expected: 01/06/2025 (Approximate), Expires: 01/06/2026 documented as of this encounter Procedures Procedure Name Priority Date/Time Associated Diagnosis Comments TSH W/REFLEX TO FT4 Routine 01/06/2025 1 2:12 PM EDT Other fatigue LIPID PANEL WITH REFLEX TO DIRECT LDL Routine 01/06/2025 12:12 PM EDT 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) CBC WITH AUTO DIFFERENTIAL Routine 01/06/2025 12:12 PM EDT Other fatigue COMPREHENSIVE METABOLIC PANEL Routine 01/06/2025 12:12 PM EDT 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) POCT GLYCATED HEMOGLOBIN, TOTAL Routine 01/06/2025 11:19 AM EDT 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) POCT GLUCOSE Routine 01/06/2025 11:14 AM EDT 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) documented in this encounter Results * (ABNORMAL) CBC auto differential (01/06/2025 12:12 PM EDT) White Blood Count 6.9 4.8 - 10.8 X10*3/uL [facility] Red Blood Count 3.71(L) 4.60 - 5.80 X10*6/uL [facility] Hemoglobin 10.1(L) 14.0 - 18.0 g/dl [facility] Hematocrit 32.2(L) 42.0 - 52.0 % [facility] Mean Corpuscular Volume 86.8 80.0 - 98.0 fL [facility] Mean Corpuscular Hemoglobin 27.2 27.0 - 33.0 pg [facility] Mean Corpuscular HGB Conc 31.4 31.0 - 36.0 g/dl [facility] Red Cell Distribution Width 15.4 11.0 - 16.0 % [facility] Platelet Count 271 160 - 400 X10*3/uL [facility] Mean Platelet Volume 9.8 9.4 - 12.4 fL [facility] Neutrophils Percent Auto 58.0 45 - 73 % [facility] Imm Gran Pct Auto 0.4 0.0 - 0.4 % [facility] Lymphocytes Percent Auto 28.2 20 - 40 % [facility] Monocytes Percent Auto 9.6 2 - 11 % [facility] Eosinophils Percent Auto 3.1 0 - 4 % [facility] Basophils Percent Auto 0.7 0 - 2 % [facility] NRBC Pct Auto 0.0 0.0 - 0.2 /100WBC [facility] Neutrophils Absolute Auto 4.0 2.0 - 8.3 x10*3/uL [facility] Imm Gran Abs Auto 0.03 0.00 - 0.03 X10*3/uL [facility] Lymphocytes Absolute Auto 1.9 1.2 - 4.9 X10*3/uL [facility] Monocytes Absolute Auto 0.7 0.1 - 1.2 X10*3/uL [facility] Eosinophils Absolute Auto 0.2 0.0 - 0.4 X10*3/uL [facility] Basophils Absolute Auto 0.1 0.0 - 0.2 X10*3/uL [facility] NRBC Abs Auto 0.000 0.0 - 0.012 X10*3/uL [facility] Blood Venous blood specimen / Unknown 01/06/2025 12:12 PM EDT 01/06/2025 1:24 PM EDT Haley Dominguez MD LAB BLOOD ORDERABLES Fin al Result Performing Organization Address City/State/[facility] Co de Phone Number [facility] [address] [place] [phone] * (ABNORMAL) POCT Hgb A1c (01/06/2025 11:19 AM EDT) Hemoglobin A1C 6.2(A) 4.0 - 5.7 % QC Media Lot # [id number] Lot# Expiration Date Blood 01/06/2025 11:1 9 AM EDT Haley Dominguez MD POINT OF CARE TEST ENTER /EDIT ORDERABLES Final Result * POCT Glucose (01/06/2025 11:14 AM EDT) Glucose Blood, POC 97 60 - 200 mg/dL Comment:2nd time 111 QC Media Lot # [id number] Lot# Expiration Date Blood Capillary blood specimen / Unknown 01/06/2025 11:14 AM EDT Haley Dominguez MD POINT OF CARE TE ST ENTER/EDIT ORDERABLES Edited Result - Final documented in this encounter Visit Diagnoses Diagnosis 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
[2025-01-06 13:28] LABS: MANUAL DIFF FLAG NO
[2025-01-06 13:34] LABS: Hematocrit 32.2 % (42.0-52.0); Hemoglobin 10.1 g/dl (14.0-18.0); Imm Gran Abs Auto 0.03 X10*3/uL (0.00-0.03); Imm Gran Pct Auto 0.4 % (0.0-0.4); Lymphocytes Absolute Auto 1.9 X10*3/uL (1.2-4.9); Mean Corpuscular HGB Conc 31.4 g/dl (31.0-36.0); Mean Corpuscular Hemoglobin 27.2 pg (27.0-33.0); Mean Corpuscular Volume 86.8 fL (80.0-98.0); NRBC Abs Auto 0.000 X10*3/uL (0.0-0.012); NRBC Pct Auto 0.0 /100WBC (0.0-0.2); Platelet Count 271 X10*3/uL (160-400); Red Blood Count 3.71 X10*6/uL (4.60-5.80); White Blood Count 6.9 X10*3/uL (4.8-10.8)
[2025-01-06 14:04] LABS: Alanine Aminotransferase 17 U/L (0-40); Albumin Level 3.8 g/dL (3.5-5.0); Alkaline Phosphatase 134 U/L (39-117); Anion Gap 12 (12-20); Aspartate Amino Transferase 30 U/L (5-37); Blood Urea Nitrogen 17 mg/dL (9-16); Calcium 8.8 mg/dL (8.4-10.2); Carbon Dioxide 27 mmol/L (22-29); Chloride 104 mmol/L (96-108); Cholesterol 141 mg/dL (<200); Estimated Glomerular Filt Rate > 60; HDL Cholesterol 32 mg/dL (>40); Potassium 4.2 mmol/L (3.3-5.1); Sodium 139 mmol/L (135-145); Total Protein 7.0 g/dL (6.5-8.0); Triglycerides 158 mg/dL (<150)
--- OUTSIDE RECORDS SUMMARY | 2025-01-06 14:31 | XMS_ITS | Encounter Summary ---
Author Organization [employer] Address [address] [facility] [address] [place] [address] Care Team Providers Care Inventory Control Clerk Name Role Phone Haley Dominguez MD Primary Care Provider + Reason for Visit * Reason Comments Med Refill Encounter Details Date Type Department Care Team (Late st Contact Info) Description 07/16/[address] [facility] [address] [place] [address] Haley Dominguez MD [address] [place] [address] Vitamin D deficiency disease; Essential hypertension Social History Tobacco Use Types Packs/Day Years [...] AM EDT documented as of this encounter Plan of Treatment Not on file documented as of this encounter Visit Diagnoses Diagnosis Vitamin D deficiency disease Unspecified vitamin D deficiency Essential hypertension Unspecified essential hypertension documented in this encounter Additional Health Concerns Assessment Noted Time PHQ-9 Depression Total Score: 1 07/06/19 23 9:47 AM EDT documented as of this encounter Care Teams Inventory Control Clerk Relationship Specialty Start Date End Date Haley Dominguez MD [address] [place] [phone] PCP - General Family Medicine 11/13/17 documented as of this encounter
--- OUTSIDE RECORDS SUMMARY | 2025-01-06 14:31 | XMS_ITS | Encounter Summary ---
Author Organization [employer] Address [address] [facility] [address] [place] [address] Care Team Providers Care Legal Intern Name Role Phone Haley Dominguez MD Primary Care Provider + Reason for Visit * Reason Comments Med Refill Encounter Details Date Type Department Care Team (Late st Contact Info) Description 12/19/2024 Refill [facility] [address] [place] [address] Haley Dominguez MD [address] [place] [address] Essential hypertension Social History Tobacco Use Types [...] as of this encounter Visit Diagnoses Diagnosis Essential hypertension Unspecified essential hypertension documented in this encounter Additional Health Concerns Assessment Noted Time PHQ-9 Depression Total Score: 1 07/06/19 23 9:47 AM EDT documented as of this encounter Care Teams Legal Intern Relationship Specialty Start Date End Date Haley Dominguez MD [address] [place] [phone] PCP - General Family Medicine 11/13/17 documented as of this encounter
--- OUTSIDE RECORDS SUMMARY | 2025-01-06 14:31 | XMS_ITS | Encounter Summary ---
Author Organization [employer] Address [address] [facility] 7[address] [place] [address] Care Team Providers Care Paving Bed Maker Name Role Phone Haley Dominguez MD Primary Care Provider + Reason for Visit * Reason Onset Date Comments Paperwork/Forms 01/02/2025 Encounter Details Date Type Department Care Team ([facility] st Contact Info) Description 01/02/2025 Refill [facility] MEDICINE [address] [place] [address] Chikis Loaiza RN [address] [place] [address] Xerosis of skin Social History Tobacco Use Types Packs/Day Years [...] AM EDT documented as of this encounter Miscellaneous Notes * Telephone Encounter - Chikis Loaiza RN - 01/02/2025 1:30 PM EDT Telephone order form received from [employer] [facility] to continue application of ammonium lactate cream. Signed by PCP and faxed back to [phone]. Confirmation received. Cover sheet is also requesting a new script. Rx pended. documented in this encounter Plan of Treatment Not on file documented as of this encounter Visit Diagnoses Diagnosis Xerosis of skin documented in this encounter Additional Health Concerns Assessment Noted Time PHQ-9 Depression Total Score: 1 07/06/19 23 9:47 AM EDT documented as of this encounter Care Teams Paving Bed Maker Relationship Specialty Start Date End Date Haley Dominguez MD [address] [place] [id number] PCP - General Family Medicine 11/13/17 documented as of this encounter
--- OUTSIDE RECORDS SUMMARY | 2025-01-06 14:31 | XMS_ITS | Encounter Summary ---
Author Organization [employer] Address [address] [facility] 7t [place] [address] Care Team Providers Care De Alcholizer Name Role Phone Haley Dominguez MD Primary Care Provider + Reason for Visit * Reason Onset Date Comments Med Refill 11/22/2024 Encounter Details Date Type Department Care Team ([facility] st Contact Info) Description 11/22/2024 Telephone [facility] MEDICINE [address] [place], [place] [phone] Haley Dominguez MD [address] [place], [place] [phone] Med Refill Social History Tobacco Use Types Packs/Day Years [...] encounter Miscellaneous Notes * Telephone Encounter - Valencia Haynes LPN - 11/22/2024 11:27 AM EDT Medication pended to PCP for approval. * Telephone Encounter - Irina Lin - 11/22/2024 11:22 AM EDT TC from pt requesting medication refill. Medications needing refill : ergocalciferol (Vitamin D2) 1.25 MG (92696 UT) capsule To be sent to: [facility] - [address] documented in this encounter Plan of Treatment Not on file documented as of this encounter Visit Diagnoses Not on filedocumented in this encounter Additional Health Concerns Assessment Noted Time PHQ-9 Depression Total Score: 1 07/06/19 23 9:47 AM EDT documented as of this encounter Care Teams De Alcholizer Relationship Specialty Start Date End Date Haley Dominguez MD [address] [place] [id number] PCP - General Family Medicine 11/13/17 documented as of this encounter
--- OUTSIDE RECORDS SUMMARY | 2025-01-06 14:31 | XMS_ITS | Encounter Summary ---
Author Organization [employer] Address [address] [facility] [address] [place] [address] Care Team Providers Care Back Office Medical Assistant Name Role Phone Haley Dominguez MD Primary Care Provider + Encounter Details Date Type Department Care Team (Latest Contact Info) Description 01/06/2025 Travel Social History Tobacco Use Types Packs/Day Years [...] documented as of this encounter Care Teams Back Office Medical Assistant Relationship Specialty Start Date End Date Haley Dominguez MD [address] [place] [phone] PCP - General Family Medicine 11/13/17 documented as of this encounter
--- OUTSIDE RECORDS SUMMARY | 2025-01-06 14:31 | XMS_ITS | Encounter Summary ---
Author Organization [employer] Address [address] [place] [address] 7[address] [place] [address] Care Team Providers Care Dropper Tank Storage Name Role Phone Haley Dominguez MD Primary Care Provider + Reason for Visit * Reason Onset Date Comments Prior Authorization 09/28/2023 Encounter Details Date Type Department Care Team ([facility] st Contact Info) Description 09/28/[address] [facility] MEDICINE [address] [place], [place] [phone] Haley Dominguez MD [address] [place] [address] Prior Authorization Social History Tobacco Use Types Packs/Day Years [...] Date Recorded Patient Health Questionnaire-2 Score 0 07/05/2022 Sex and Gender Information Value Date Recorded Sex Assigned at Male 01/31/2022 10:17 AM EDT Legal Sex Male 10:17 AM EDT Gender Identity Male 01/31/2022 10:17 AM EDT Sexual Orientation Choose not to disclose 2021 10:17 AM EDT documented as of this encounter Miscellaneous Notes * Telephone Encounter - Mark Anthony Tripathi - 10/16/2023 1:09 PM EDT Tc from [facility] with [facility] requesting status on message prior. * Telephone Encounter - Samara Downing - 10/13/2023 2:41 PM EDT Please advise if agree with PA for lidoderm. Thank you * Telephone Encounter - Mark Anthony Tripathi - 10/11/2023 2:27 PM EDT Tc from [facility] with [facility] requesting status on prior authorization. * Telephone Encounter - Elida Sexton - 09/28/2023 1:46 PM EDT Tc from [facility] with [facility] calling to inform a PA for medication lidocaine (Lidoderm) 5 % patch is needed . Any question best contact # [phone] ext [phone] documented in this encounter Plan of Treatment Not on file documented as of this encounter Visit Diagnoses Not on filedocumented in this encounter Additional Health Concerns Assessment Noted Time PHQ-9 Depression Total Score: 1 07/06/19 9:47 AM EDT documented as of this encounter Care Teams Dropper Tank Storage Relationship Specialty Start Date End Date Haley Dominguez MD [address] [place] [phone] PCP - General Family Medicine 11/13/17 documented as of this encounter
--- OUTSIDE RECORDS SUMMARY | 2025-01-06 14:31 | XMS_ITS | Encounter Summary ---
Author Organization [employer] Address [address] [facility] [address] [place] [address] Care Team Providers Care Homeworker Name Role Phone Haley Dominguez MD Primary Care Provider + Reason for Visit * Reason Comments Med Refill Encounter Details Date Type Department Care Team (Late st Contact Info) Description 11/25/2024 Refill [facility] MEDICINE [address] [place] [address] Haley Dominguez MD [address] [place] [address] Social History Tobacco Use Types Packs/Day Years [...] documented as of this encounter Care Teams Homeworker Relationship Specialty Start Date End Date Haley Dominguez MD [address] [place] [phone] PCP - General Family Medicine 11/13/17 documented as of this encounter
--- OUTSIDE RECORDS SUMMARY | 2025-01-06 14:31 | XMS_ITS | Encounter Summary ---
Author Organization [employer] Address [address] [facility] [address] [place] [address] Care Team Providers Care Fire Control Technician Name Role Phone Haley Dominguez MD Primary Care Provider + Reason for Visit * Reason Comments Med Refill Encounter Details Date Type Department Care Team (Late st Contact Info) Description 10/12/2023 Refill [facility] [address] [place] [address] Shira Nova FNP [address] [place] [address] Social History Tobacco Use Types Packs/Day Years [...] documented as of this encounter Care Teams Fire Control Technician Relationship Specialty Start Date End Date Haley oDminguez MD [address] [place] [address] PCP - General Family Medicine 11/13/17 documented as of this encounter
--- OUTSIDE RECORDS SUMMARY | 2025-01-06 14:32 | XMS_ITS | Clinical Summary ---
Author Organization [employer] Address [address] [place] [address] [address] [place] [address] Care Team Providers Care Wallpaperer Helper Name Role Phone Haley Dominguez MD Primary Care Provider + Allergies Active Allergy Reactions Criticality Noted Date Comments Lisinopril Cough 07/09/2013 Medications folic acid (Folvite) 1 MG tablet take 1 Tablet by Oral route every day 022 Active phenytoin ER (Dilantin) 100 MG capsule take 2 capsule by oral route 2 times every day Active Alcohol Swabs (Alcohol Prep) pads Use 1 by to skin route 1 times every day 022 Active terazosin (Hytrin) 1 MG capsule 1 mg. 022 Active finasteride (Proscar) 5 MG tablet 5 mg. 023 Active tolterodine LA (Detrol LA) 4 MG 24 hr capsule 4 mg. 022 Active Blood Glucose Monitoring Suppl (Prodigy Autocode Blood Glucose) w/Device kitIndications:Ty pe 2 diabetes mellitus with hyperglycemia, without long-term current use of insulin ([facility]) 1 kit 2 times daily. 1 kit 024 Active Prodigy Twist Top Lancets 28G miscIndications:T ype 2 diabetes mellitus with hyperglycemia, without long-term current use of insulin ([facility]) USE TO TEST BLOOD SUGAR 2 TIMES A DAY 100 each 11 024 Active lidocaine (Lidoderm) 5 % patchIndications: Right low back pain, unspecified chronicity, unspecified whether sciatica present Apply 1 patch topically Once per day. Remove & discard patch within 12 hours or as directed by . 15 patch 2 024 Active glucose blood (Prodigy No Coding Blood Gluc) test strip USE 1 STRIP TO TEST BLOOD SUGAR TWICE DAILY. 50 strip 11 024 Active PHENobarbital 32.4 MG tablet Take 4 tablets by mouth at bedtime. 024 Active bacitracin 500 UNIT/GM ointment AFTER FIRST CLEANING SUPERFICIAL WOUND WITH SOAP AND WATER, APPLY OINTMENT TO WOUND TWICE DAILY NEEDED. 28.4 g 025 Active acetaminophen (Tylenol) 325 MG tabletIndications :Repeated falls Take 2 tablet by mouth every six hours as needed for pain 90 tablet 3 025 Active aluminum & magnesium hydroxide-simethi cone (Antacid Regular Strength) 200-200-20 MG/5ML oral suspension TAKE 2 TEASPOONS BY MOUTH UP TO 4 TIMES DAILY NEEDED AFTER MEALS AND AT BEDTIME FOR IDIGESTION AND HEARTBURN. *NOT TO EXCEED 8 TEASPOONS IN 24 HOURS* 360 mL 1 025 Active omeprazole (PriLOSEC) [address] capsule TAKE 1 CAPSULE BY MOUTH DAILY ONE HOUR BEFORE THE MORNING MEAL 30 capsule 5 025 Active losartan (Cozaar) 50 MG tabletIndications :Essential hypertension TAKE 1 TABLET BY MOUTH ONCE DAILY IN THE MORNING AT 8 AM 30 tablet 3 025 Active atorvastatin (Lipitor) 40 MG tabletIndications :Other hyperlipidemia TAKE 1 TABLET BY MOUTH DAILY AT BEDTIME AT 8 PM 30 tablet 3 025 Active ergocalciferol (Vitamin D2) 1.25 MG (83863 UT) capsuleIndication s:Vitamin D deficiency disease TAKE 1 CAPSULE BY MOUTH ONCE WEEKLY 4 capsule 1 025 Active ferrous gluconate (Fergon) 324 (38 Fe) MG tablet TAKE 1 TABLET BY MOUTH DAILY WITH BREAKFAST 30 tablet 2 025 Active ammonium lactate (Amlactin) 12 % creamIndications: Xerosis of skin use daily in evening on dry skin including both feet 385 g 2 025 Active metFORMIN XR (Glucophage-XR) 750 MG 24 hr tablet Take 1 tablet (750 mg) by mouth with evening meal. Do not crush, chew, or split. 30 tablet 11 025 2025 Active ammonium lactate (Amlactin) 12 % creamIndications: Xerosis of skin use daily in evening on dry skin including both feet 385 g 2 025 2024 Discontinued(R eorder (will not trigger notification to Pharmacy)) metFORMIN (Glucophage) 850 MG tablet TAKE 1 TABLET BY MOUTH TWICE DAILY WITH THE MORNING AND EVENING MEALS 60 tablet 2 025 2024 Discontinued ferrous gluconate (Fergon) 324 (38 Fe) MG tablet TAKE 1 TABLET BY MOUTH DAILY WITH BREAKFAST 30 tablet 2 025 2024 Discontinued metFORMIN (Glucophage) 850 MG tablet TAKE 1 TABLET BY MOUTH TWICE DAILY WITH THE MORNING AND EVENING MEALS 60 tablet 2 025 2024 Discontinued(S tomás effects) Active Problems Problem Noted Date Diagnosed Date Other fatigue 01/06/2025 Assessment & Plan (01/06/2025 1:00 PM EDT): Unclear if related to intermittent diarrhea/? Dehydration? Electrolyte disbalance versus hypoglycemia. I gave the medications to check fingersticks as needed symptoms Changed to extended release metformin as above. Advised regarding proper hydration, check color of the urine that should be clear yellow if patient properly hydrated. Offer small infection meals, at least 3 or 4/day Order labs and follow-up after labs Diarrhea 01/06/2025 Assessment & Plan (01/06/2025 12:55 PM EDT): Unclear if related to metformin or other conditions DC metformin 1/5-day x 1 week, then restart extended release presentation observe symptoms Order stool test Fall 04/15/2024 Chronic pain of right knee 04/15/2024 Assessment & Plan (04/15/2024 1:59 PM EST): XRAY ordered Today physical exam reassuring he is not in pain at this time, if pain or swelling I recommended elevation of the knee, ice and rest Iron deficiency anemia due to chronic blood loss 02/07/2024 Assessment & Plan (02/07/2024 3:55 PM EST): Had a drop with tubular adenomas of the colon which were resected last year. Hb dropped even more after intracranial bleeding but has remained stable. Rx with iron sulfate daily, give colace to prevent constipation FU cbc in Sleep disturbance 02/07/2024 Assessment & Plan (02/07/2024 3:53 PM EST): Circadian rhythm apparently disturbed after the fall, ro hypoglycemic episodes? Progression of dementia? They will check fgstk at bedtime instead and fax results within 1mo Advised to make sure he gets Phenobarbital for seizures at night, will try to limit sedatives that can interact with BBT. Advised to create sleep routines, sleep hygiene methods. Consider mood stabilizer if needed at next visit. SAH (subarachnoid hemorrhage) 12/21/2023 Assessment & Plan (04/15/2024 1:58 PM EST): Stable continue to monitor Aspirin is discontinue at this visit Assessment & Plan (02/07/2024 4:02 PM EST): Ct scan on 01/25 is pending result, will call [facility] to expedite reading, specially since he had a seizure after his fall/SAH. Hb drop very little since fall, has remained fairly stable. Continue off ASA until I see CT scan report. He completed PT at home and his mobility within the home has improved. I will refer him to PT outside ([facility]) to improve mobility outside the home and prevent further falls. Continue ambulation with walker as much as possible, I told the trailers and motor homes salesperson (Bertha) that transport wheelchair should be limited for longer trips outside the home for now. Patient should be able to go back to adult day program with fall prevention measures, bring walker. FU with me in Assessment & Plan (12/21/2023 5:05 PM EDT): Deemed not to be surgical by neurosurgeon. Order CT scan to be done within 2-7 days. Check CBC today. Discussed with caregivers regarding warning signs of neurological deterioration including worsening mental status, increased somnolence, seizures, etc, should be taken to ED immediately. Follow up with me in one month. Will check with PT regarding mobility( walker/1:1?/ wheelchair?). I will prescribe DME (handle bars, raised toilet seat) to prevent further falls. Unclear it pt will need 1 to 1 person. Closed fracture of temporal bone with routine he aling 12/21/2023 Assessment & Plan (12/21/2023 3:07 PM EDT): Stable no need for additional intervention at this time. Take Tylenol prn headache. Type 2 diabetes mellitus wit h hyperglycemia, without long-term current use of insulin 10/12/2023 Assessment & Plan (02/07/2024 3:54 PM EST): Controlled, see previous note Assessment & Plan (10/12/2023 11:15 AM EDT): Controlled. A1c is at goal. Continue on Metformin bid Counseled re more frequent low calorie/carb meals. Check fgstk 1x daily, prn hypoglycemia sxs due to lower calorie intake Encouraged physical activity as tolerated. FU in 4 months. 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 Continue monitoring risk of falls, ambulates with a walker. Bilateral impacted cerumen 07/13/2023 Assessment & Plan (07/13/2023 2:01 PM EDT): Use debrox ear drops prn and re consult prn for ear lavage Venous insufficiency of lower extremity 07/13/19 Assessment & Plan (07/13/2023 2:05 PM EDT): Bilateral, no ulcerations Counseled to use compression stockings 15-20mmHg, will fu from there. Dysphagia 02/08/2023 Assessment & Plan (05/04/2023 12:07 PM EST): Most likely result of microvascular disease Recommended soft and blended foods, small infraction meals, refer to speech therapy Recommenced for pt to use teeth dentures Assessment & Plan (02/08/2023 11:55 AM EST): Most likely related to cognitive delay Recommended puree and bland diet, order varium swallowing stats Encounter for preventive health examination 07/2022 Assessment & Plan (01/06/2025 1:00 PM EDT): Discussed with patient and care home re increase fresh fruit and vegetable intake. Counseled re moderate exercise as tolerated, up to 20min/d, discussed with program manager and staff coordinator regarding risk of falls and prevention of fractures. Patient feels safe at home. Eye exam: Overdue according to care gaps,, will obtain OV notes from 2023, he has an appointment on March 2025 CRC screen: UTD, next one due on 2027 Lipids/FBS: UTD, next one is due prior to next visit. Vaccinations: COVID + flu IZs today, advised to have RSV and Tdap prior to next appointment or will follow-up at next visit. dental visit: UTD, he is wearing dentures Assessment & Plan (07/13/2023 2:03 PM EDT): Discussed with patient and care home re increase fresh fruit and vegetable intake. Counseled re moderate exercise as tolerated, up to 20min/d Patient feels safe at home. Eye exam: up to date, next one due February 2024, will obtain OV notes. CRC screen: UTD, next one due on 2027 Lipids/FBS: Overdue, order given to Pat today. Vaccinations: counseled regarding covid and zoster booster (rx sent to [facility] pharmacy). Check mmr and hep titers, rest of adult IZ are up to date. Dental visit: UTD, awaiting for dentures. Assessment & Plan (07/05/2022 1:32 PM EDT): Discussed with patient re increase fresh fruit and vegetable intake. Counseled re moderate exercise as tolerated, up to 20min/d Patient feels safe at home. Eye exam: up to date, next one due February 2023 CRC screen: Tecnically unable to collect cologualouie Rodger (house staff) will call GI for FU and probably schedule colonoscopy Lipids/FBS: TBO Vaccinations: counseled regarding covid and zoster booster, he will have it done at the pharmacy. Check mmr and hep titers, rest of adult IZ are up to date. Dental visit: up to date Abnormal gait 03/01/2022 Assessment & Plan (04/15/2024 1:59 PM EST): Patient uses walker but sometimes he has pain and swelling of his knee when this happens he can use a wheelchair, prescription will be generated today Assessment & Plan (02/07/2024 3:56 PM EST): Due to DJD spine, microvascular SILK WORKER disease, worse after SAH (sp fall) Ambulates with walker, sp PT and gait retraining, needs wheelchair for transport, advised to avoid using wheelchair otherwise.. Refer to PT at [facility]. Assessment & Plan (10/12/2023 11:16 AM EDT): Due to DJD spine, microvascular SILK WORKER disease Ambulates with walker, sp PT and gait retraining. No recent falls, staff will re consult PRN, falls, or pain Assessment & Plan (09/01/2023 2:32 PM EDT): Due to DJD spine, microvascular SILK WORKER disease Ambulates with walker, sp PT and gait retraining. Assessment & Plan (11/21/2022 2:33 PM EDT): Sec to DJD spine + ? SILK WORKER abn (NPH?) + meds. Encouraged ambulation with walker as recommended by PT 6mo ago, new rx to be sent to DME provider Fall precautions d/w caregiver FU with neurology Assessment & Plan (07/05/2022 2:10 PM EDT): Recently completed PT, may need prescription for a walker will obtain PT notes to see if he needs any other DME supplies at home to prevent falls. FU with neurology Allergic rhinitis due to pollen 03/01/2022 Dizziness 03/01/2022 Exposure to COVID-19 virus 03/01/2022 Increased abdominal girth 03/01/2022 Nevus of eyelid 03/01/2022 Nocturia 03/01/2022 Repeated falls 03/01/2022 Assessment & Plan (09/01/2023 2:33 PM EDT): Sp recent fall, accidental. No need for addtl PT. Ambulates with walker, needs assistance for ADLs specially bathing and getting dressed due to risk of falls. Assessment & Plan (11/21/2022 2:34 PM EDT): No recent falls in the past 3m Use of walker, see above Assessment & Plan (07/05/2022 2:09 PM EDT): As above. Cerebral microvascular disease 03/01/2022 Assessment & Plan (02/07/2024 4:17 PM EST): His brother Lance Lott is his guardian, they wan tto transfer guardianship on to Whitney, their daughter who is more available and bilingual in mohawk and surinamese. She reached out to social worker school to assist on it. Patient unable to do informed consent for HCP forms. Whitney will continue to pursue change of guardianship with her parents Assessment & Plan (09/01/2023 2:31 PM EDT): Patient has moderate cognitive impairment FU by neurology Continue monitoring and optimizing CV RF Assessment & Plan (05/04/2023 12:07 PM EST): Pt Hx of multiple infarcts form multiple CT scans, has progressive memory impairment, dysphagia Urge incontinence of urine 03/01/2022 Assessment & Plan (01/12/2023 2:28 PM EDT): Most likely related to prostate issues and progresive dementia I will obtain urology notes addressing elvated PSA Use diapers prn Flu IZ 01/12 Assessment & Plan (11/21/2022 2:31 PM EDT): Seen by urology, likely related to BPH. Continue Ditropan Use pull ups specially at night, encourage frequent bathroom visits during the day Avoid fluids after 8pm. Weight loss 03/01/2022 Assessment & Plan (07/13/2023 1:57 PM EDT): It could be related to dietary change to puree diet/lower calorie intake. FU in 2-3m, we'll do addtl w/u if persistent once he as new dentures and goes back to regular diet. Assessment & Plan (05/04/2023 12:07 PM EST): Resolved Risk for falls 03/01/2022 Assessment & Plan (01/06/2025 12:44 PM EDT): No recent falls since patient is using wheelchair for longer transfers and uses a walker at the [facility] care program. Discussed with measurement supervisor and staff coordinator regarding the importance of using ambulatory devices, prevention of falls, reconsult as needed for PT Assessment & Plan (02/07/2024 3:57 PM EST): Use walker inside the hoe and at day care Refer to PT to improve ambulation outside the home Uses wheelchair for longer transfers. Assessment & Plan (07/13/2023 2:00 PM EDT): Improving after PT Continue going to [facility] day program, use walker prn Memory impairment 07/09/2018 Assessment & Plan (01/06/2025 12:59 PM EDT): Patient has significant neurocognitive disorder, will need an Mini-Mental at next appointment. He is safe at home at [facility] program where he is assisted on all his ADLs, family stays in touch. We discussed with home care staff regarding importance of fall and fracture prevention and prevention of further accidents. Will continue to optimize Rx of medical problems. Anodontia 09/19/2014 Essential hypertension 09/19/2014 Assessment & Plan (02/07/2024 3:36 PM EST): BP is at goal. Continue losartan 50 mg Counseled re low salt diet/increase moderate physical activity. Check home BP BIW and prn CP/LIAO/KAHN Non smoking patient. FU with me in 6 months Assessment & Plan (07/05/2022 2:12 PM EDT): BP is at goal. Continue losartan 50 mg Counseled re low salt diet/increase moderate physical activity. Check home BP BIW and prn CP/LIAO/KAHN Non smoking patient. 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 Rojas), last appointment was November 2023 for toenail trimming He agreed to influenza and COVID immunization today, I will follow-up with Tdap and RSV at next appointment. Assessment & Plan (12/21/2023 5:07 PM EDT): Its controlled on Metformin Will refer to nutrition to educate caregivers re DM diet taking in to account dietary restrictions due to lack of teeth and dysphagia (see swallow and speech therapy evaluation 6mo ago) Assessment & Plan (07/13/2023 1:56 PM EDT): Controlled. A1c is at goal. Continue on Metformin bid Counseled re more frequent low calorie/carb meals. Check fgstk 1x daily, prn hypoglycemia sxs due to lower calorie intake Encouraged physical activity as tolerated. FU in 4 months. Assessment & Plan (05/04/2023 12:07 PM EST): Probably controlled. Continue on metformin Check fgstk once daily, try different times of the day to test w/ meals Discussed with house staff about controlling calorie intake and increased exercise Discussed with Pat house staff, to get booster for Covid, Zoster,and RSV vaccine. FU 3 m Assessment & Plan (01/12/2023 1:00 PM EDT): Controlled. A1c is at goal. Continue on metformin Counseled re more frequent low calorie/carb meals. Check fgstk once daily Encouraged physical activity as tolerated. FU in 4 months. Assessment & Plan (11/21/2022 2:32 PM EDT): Controlled. A1c was at goal 3m ago, fu in 3m. Continue on low dose metformin Counseled re more frequent low calorie/carb meals. Check fgstk 1x daily Encouraged physical activity as tolerated. FU in 2-3 months. Assessment & Plan (07/05/2022 2:11 PM EDT): Controlled. Continue metformin low dose. Counseled re more frequent low calorie/carb meals. Encouraged physical activity as tolerated. FU in 6 months Hyperlipidemia 12/23/2011 Obesity 12/23/2011 Seizure disorder (CMS/HCC) 12/23/2011 Assessment & Plan (02/07/2024 3:47 PM EST): Had a seizure last month, seen by Neurology, no meds adjusted Continue Phenobarbital + Dilantin FU CT scan results Will rx position/semi automatic (?hospital bed?) bed to prevent falls while sleeping in case of seizures. Assessment & Plan (07/13/2023 1:51 PM EDT): No seizures since last visit Continue Dilantin and Phenobarbital. FU with Dr Palomino Assessment & Plan (01/12/2023 1:00 PM EDT): No seizures since last visit Reminded warehouse and receiving supervisor to get Dilantin levels and labs done Assessment & Plan (11/21/2022 2:31 PM EDT): No seizure activity within past 6mo. Sees neurology Continue Phenobarbital + Dilantin. Safety precautions discussed with primary caregiver form [facility], patient doesn't drive. Tubular adenoma 12/23/2011 Overview (07/13/2023): Dr Clements at [facility], 08/2022 Assessment & Plan (07/13/2023 1:59 PM EDT): Sp colonoscopy 08/10/22, next colonoscopy due in 5y Resolved Problems Problem Noted Date Diagnosed Date Resolved Date Dyspnea on exertion 03/01/2022 07/13/19 24 Viral upper respiratory tract infection 03/01/2022 02/01/2023 Cough 02/20/2018 07/13/2023 Assessment & Plan (08/17/2022 9:21 AM EDT): Patient covid + on 08/16, symptoms started on 08/15, complains of cough, runny nose and diarrhea, no shortness of breath, no fever, due to comorbidity will start on paxlovid, risk vs benefits were discussed, told to remain well hydrated, in case of worsening shortness of breath told to visit er. Benign neoplastic disease 08/18/2014 Assessment & Plan (02/08/2023 11:56 AM EST): Order X rays to rule out aspirating to chronic cough Chronic mental disorder 12/23/201107/02 Encounters Date Type Department Care Team Description 01/06/2025 10:45 AM EDT Office Visit [facility] [address] [place] [id number] Haley Dominguez MD 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); Encounter for preventive health examination; Diarrhea, unspecified type; Other fatigue; Risk for falls; Memory impairment; Encounter for vaccination; Encounter for immunization 01/06/2025 Travel 01/02/2025 Refill [facility] [address], [place] [phone] Chikis Loaiza, ISSA Xerosis of skin 12/31/2024 Telephone [facility] [address], [place] [phone] Haley Dominguez MD R/S appt 01/10/25 12/19/2024 Refill [facility] [address], [place] [phone] Haley Dominguez MD Essential hypertension 12/16/2024 Refill [facility] [address], [place] [phone] Haley Dominguez MD 11/25/2024 Refill [facility] [address] [place] [phone] Haley Dominguez MD 11/22/2024 Telephone [facility] [address], [place] [phone] Haley Dominguez MD Med Refill 11/22/2024 Refill [facility] [address], [place] [phone] Haley Dominguez MD Vitamin D deficiency disease 10/30/2024 Refill [facility] [address] [place] [phone] Haley Dominguez MD Other hyperlipidemia from Last 3 Months Immunizations Immunization Administration Dates Next Due Influenza High-dose Quadriva lent Preservative Free 01/12/2023,01/26/2022,04/14/2020 Influenza Quadrivalent Adjuvanted 04/15/2023 Influenza injectable quadriv alent IIV4 with preservative 02/13/2017 Influenza injectable quadriv alent preservative free 04/21/2021,08/18/2014 Influenza, High Dose Seasona l, Preservative Free 01/06/2025,02/22/2019,01/17/2018,01/29 Influenza, IIV3, injectable 11/29/2010 Influenza, Split (incl. ya fied surface antigen) 01/02/2013,12/23/2011 Influenza, seasonal, injecta ble, preservative free 12/24/2015 Influenza, trivalent, adjuvanted 02/01/2024 Moderna Covid-19 Vaccine 12+ 05/24/2020,04/26/19 21 Moderna Covid-19 Vaccine 6+ Bivalent 07/05/2022 Pfizer Covid-19 Vaccine 12+ 01/06/2025, Pneumococcal Conjugate PCV 13 04/21/2021 Pneumococcal Polysaccharide PPSV23 03/25/2016,,06/25/2003 TD (adult), 2 Lf tetanus tox oid, preservative free, adsorbed 06/25/2003 Tdap 08/18/2014 Zoster, Recombinant 09/26/2023,07/24/2023 Zoster, live 09/19/2014 Social History Tobacco Use Types Packs/Day Years Used Date Smoking Tobacco: Never Smokeless Tobacco: Never Tobacco Cessation:Counseling Given: Not Answered Alcohol Use Standard Drinks/Week Comments Never 0 [...] not to disclose 2021 10:17 AM EDT Last Filed Vital Signs Vital Sign Reading Time Taken Comments Blood Pressure 122/62 01/06/2025 11:12 AM EDT Pulse 70 01/06/2025 11:12 AM EDT Temperature 36.5 C (97.7 F) 01/06/2025 11:12 AM EDT Respiratory Rate 14 01/06/2025 11:12 AM EDT Oxygen Saturation 99% 02/07/2024 10:32 AM EST Inhaled Oxygen Concentration - - Weight 91.8 kg (202 lb 6.4 oz) 04/15/2024 1:04 P M EST Height 162.6 cm (5' 4 ) 04/15/2024 1:04 PM EST Body Mass Index 34.74 04/15/2024 1:04 PM EST Plan of Treatment Health Maintenance Due Date Last Done Comments Eye Exam 02/02/1958 Alcohol/Substance Use Screening 1960 Hepatitis C Screening 02/02/1966 RSV Patients and Patients Aged 60 years or older (1 - 1-dose 75+ series) 02/02/2023 SDOH Screening 07/03/2024 07/04/2023 Diabetes: Urine Protein Screening 07/17/2024 07/18/2023, 09/21/2020 Lipid Panel 07/17/2024 01/06/2025, 07/02, 12/07/2021, Additional history exists DTaP/Tdap/Td Vaccines (2 - Td or Tdap) 08/18/2024 08/18/2014, 06/25/2003 Depression Screening 10/11/2024 10/12/2023, 07/06/19 23 Diabetes: Hemoglobin A1C 07/07/2025 025, 02/07/2024, 07/13/2023, Additional history exists Diabetes: Foot Exam 01/06/2026 01/06/2025, 01/06/2025, 01/06/2025, Additional history exists Tobacco Screening 01/06/2026 01/06/2025 Pneumococcal Vaccine: 50+ Years Completed 04/21/2021, 03/25/2016, 03/20/2015, Additional history exists Zoster Vaccines Completed 09/26/2023, 07/03, 09/19/2014 COVID-19 Vaccine Completed 01/06/2025, , 07/21/2023, Additional history exists Influenza Vaccine Completed 01/06/2025, , 04/15/2023, Additional history exists HIB Vaccines Aged Out No longer eligi ble based on patient's age to complete this topic HPV Vaccines Aged Out No longer eligi ble based on patient's age to complete this topic Hepatitis A Vaccines Aged Out No long er eligible based on patient's age to complete this topic Hepatitis B Vaccines Aged Out No long er eligible based on patient's age to complete this topic IPV Vaccines Aged Out No longer eligi ble based on patient's age to complete this topic Meningococcal B Vaccine Aged Out No l onger eligible based on patient's age to complete this topic Meningococcal Vaccine Aged Out No florencia sonu eligible based on patient's age to complete this topic RSV under 20 months Aged Out No longe r eligible based on patient's age to complete this topic Rotavirus Vaccines Aged Out No longer eligible based on patient's age to complete this topic Procedures Procedure Name Priority Date/Time Associated Diagnosis Comments TSH W/REFLEX TO FT4 Routine 01/06/2025 1 2:12 PM EDT Other fatigue COMPREHENSIVE METABOLIC PANEL Routine 01/06/2025 12:12 PM EDT 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) CBC WITH AUTO DIFFERENTIAL Routine 01/06/2025 12:12 PM EDT Other fatigue LIPID PANEL WITH REFLEX TO DIRECT LDL Routine 01/06/2025 12:12 PM EDT 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) POCT GLYCATED HEMOGLOBIN, TOTAL Routine 01/06/2025 11:19 AM EDT 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) POCT GLUCOSE Routine 01/06/2025 11:14 AM EDT 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) ALBUMIN, RANDOM URINE W/CREATININE Routine 07/18/2023 8:54 AM EDT from Last 3 Months or Most Recently Relevant to Health Maintenance Results * (ABNORMAL) CBC auto differential (01/06/2025 12:12 PM EDT) White Blood Count 6.9 4.8 - 10.8 X10*3/uL [facility] Red Blood Count 3.71(L) 4.60 - 5.80 X10*6/uL [facility] Hemoglobin 10.1(L) 14.0 - 18.0 g/dl [facility] Hematocrit 32.2(L) 42.0 - 52.0 % [facility] Mean Corpuscular Volume 86.8 80.0 - 98.0 fL [facility] Mean Corpuscular Hemoglobin 27.2 27.0 - 33.0 pg [facility] Mean Corpuscular HGB Conc 31.4 31.0 - 36.0 g/dl [facility] Red Cell Distribution Width 15.4 11.0 - 16.0 % [facility] Platelet Count 271 160 - 400 X10*3/uL [facility] Mean Platelet Volume 9.8 9.4 - 12.4 fL [facility] Neutrophils Percent Auto 58.0 45 - 73 % [facility] Imm Gran Pct Auto 0.4 0.0 - 0.4 % [facility] Lymphocytes Percent Auto 28.2 20 - 40 % [facility] Monocytes Percent Auto 9.6 2 - 11 % [facility] Eosinophils Percent Auto 3.1 0 - 4 % [facility] Basophils Percent Auto 0.7 0 - 2 % [facility] NRBC Pct Auto 0.0 0.0 - 0.2 /100WBC [facility] Neutrophils Absolute Auto 4.0 2.0 - 8.3 x10*3/uL [facility] Imm Gran Abs Auto 0.03 0.00 - 0.03 X10*3/uL [facility] Lymphocytes Absolute Auto 1.9 1.2 - 4.9 X10*3/uL [facility] Monocytes Absolute Auto 0.7 0.1 - 1.2 X10*3/uL [facility] Eosinophils Absolute Auto 0.2 0.0 - 0.4 X10*3/uL [facility] Basophils Absolute Auto 0.1 0.0 - 0.2 X10*3/uL [facility] NRBC Abs Auto 0.000 0.0 - 0.012 X10*3/uL [facility] Blood Venous blood specimen / Unknown 01/06/2025 12:12 PM EDT 01/06/2025 1:24 PM EDT us Haley Dominguez MD LAB BLOOD ORDERABLES Fin al Result [facility] [address] [place] [phone] [phone] * (ABNORMAL) POCT Hgb A1c (01/06/2025 11:19 AM EDT) Hemoglobin A1C 6.2(A) 4.0 - 5.7 % QC Media Lot # [id number] Lot# Expiration Date , Blood 01/06/2025 11:1 9 AM EDT Haley [...] ST ENTER/EDIT ORDERABLES Edited Result - Final * (ABNORMAL) Albumin, Random Urine W/Creatinine (07/18/2023 8:54 AM EDT) Creatinine, Urine 49.01 mg/dL [facility] Microalbumin Urine 45.0 mg/L [facility] Microalbum Creatinine Ratio Ur 91.8(H) <30 ug/mg cr [facility] Comment:Albumin/Creatinine R atio Reference Ranges: Normal: < 30 ug/mg creatinine Microalbuminuria: 30 - 300 ug/mg creatinineClinical Albuminuria: > 300 ug/mg creatinine 07/18/2023 8:54 AM EDT 07/18/2023 11:37 AM EDT Haley Dominguez MD LAB URINE ORDERABLES Fin al Result [facility] [address] [place] [address] [phone] from Last 3 Months or Most Recently Relevant to Health Maintenance Insurance [place], [place] [facility] STANDARD MEDICARE * Guarantor: Brady Lott Account Type Relation to Patient Date of Phone Billing Address Personal/Family Self [place], [place] Care Teams Wallpaperer Helper Relationship Specialty Start Date End Date Haley Dominguez MD [address] [place] [address] PCP - General Family Medicine 11/13/17
--- OUTSIDE RECORDS SUMMARY | 2025-01-06 14:32 | XMS_ITS | Encounter Summary ---
Author Organization [employer] Address [address] [facility] [address] [place] [address] Care Team Providers Care Infantry Indirect Fire Crewmember Name Role Phone Haley Dominguez MD Primary Care Provider + Reason for Visit * Reason Onset Date Comments Nurse Triage 02/02/2023 Encounter Details Date Type Department Care Team ([facility] st Contact Info) Description 02/02/2023 Telephone [facility] MEDICINE [address] [place], [place] [phone] Haley Dominguez MD [address] [place] [address] Nurse Triage Social History Tobacco Use Types Packs/Day Years [...] the past 12 months, has t he [employer], [facility], oil or water [email or web address] threatened to shut off services in your [...] encounter Miscellaneous Notes * Telephone Encounter - Tejal Lewis RN - 02/02/2023 11:20 AM EDT Called [facility] and pt. Has been coughing while eating and choking on his food. Staff have been cutting food into tiny pieces as instructed by PCP at last OV on 01/12/23 but pt. Continues to cough/choke on tiny pieces of food. retirement is requesting a Swallowing study to evaluate level of difficulty and what consistency of food that may help. Protocol Used: Swallowing Difficulty (Adult) Protocol-Based Disposition: Discuss with PCP and Callback by Nurse within 1 Hour- I did make appt. For pt. To come in on 02/08/23 at 1115am to see PCP but, if you feel that you want to schedule testing and don't need to see pt. Than appt. Can be cancelled. Please advise and if appt. Not needed have team nurse call retirement with plan of care. Positive Triage Questions: * Coughing spells occur during or within 2 hours after eating/feedings * Swallowing difficulty and cause unknown (Exception: Difficulty swallowing is a chronic symptom.) * Swallowing difficulty is a chronic symptom (recurrent or ongoing AND present > 4 weeks) * All higher-acuity triage questions were negative * Telephone Encounter - Chilango Ramirez - 02/02/2023 11:14 AM EDT Symptom: Swallowing Difficulty Outcome: Schedule a same-day appointment or talk to a nurse or provider today Reason: Caller denied all higher acuity questions The caller accepted this outcome documented in this encounter Plan of Treatment Not on file documented as of this encounter Visit Diagnoses Not on filedocumented in this encounter Additional Health Concerns Assessment Noted Time PHQ-9 Depression Total Score: 1 07/06/19 23 9:47 AM EDT documented as of this encounter Care Teams Infantry Indirect Fire Crewmember Relationship Specialty Start Date End Date Haley Dominguez MD [address] [place] [phone] PCP - General Family Medicine 11/13/17 documented as of this encounter
--- OUTSIDE RECORDS SUMMARY | 2025-01-06 14:32 | XMS_ITS | Encounter Summary ---
Author Organization [employer] Address [address] [facility] 7[address] [place] [address] Care Team Providers Care Sand Hauler Name Role Phone Haley Dominguez MD Primary Care Provider + Reason for Visit * Reason Comments Med Refill Encounter Details Date Type Department Care Team (Late st Contact Info) Description 05/31/[address] [facility] MEDICINE [address] [place] [address] Haley Dominguez MD [address] [place] [address] Social History Tobacco Use Types Packs/Day Years [...] documented as of this encounter Care Teams Sand Hauler Relationship Specialty Start Date End Date Haley Dominguez MD [address] [place] [phone] PCP - General Family Medicine 11/13/17 documented as of this encounter
--- OUTSIDE RECORDS SUMMARY | 2025-01-06 14:32 | XMS_ITS | Encounter Summary ---
Author Organization [employer] Address [address] [facility] 7[address] [place] [address] Care Team Providers Care Oral And Maxillofacial Surgery Name Role Phone Haley Dominguez MD Primary Care Provider + Reason for Visit * Reason Comments Med Refill Encounter Details Date Type Department Care Team (Late st Contact Info) Description 04/01/2024 Refill [facility] MEDICINE [address] [place] [address] Haley Dominguez MD [address] [place] [address] Social History Tobacco Use Types Packs/Day Years [...] documented as of this encounter Care Teams Oral And Maxillofacial Surgery Relationship Specialty Start Date End Date Haley Dominguez MD [address] [place] [phone] PCP - General Family Medicine 11/13/17 documented as of this encounter
--- OUTSIDE RECORDS SUMMARY | 2025-01-06 14:32 | XMS_ITS | Encounter Summary ---
Author Organization [employer] Address [address] [facility] 7[address] [place] [address] Care Team Providers Care Soft Work Cigar Machine Operator Name Role Phone Haley Dominguez MD Primary Care Provider + Reason for Visit * Reason Comments Med Refill Encounter Details Date Type Department Care Team (Late st Contact Info) Description 03/28/2023 Refill [facility] [address] [place] [address] Haley Dominguez MD [address] [place] [address] Social History Tobacco Use Types Packs/Day Years [...] documented as of this encounter Care Teams Soft Work Cigar Machine Operator Relationship Specialty Start Date End Date Haley Dominguez MD [address] [place] [phone] PCP - General Family Medicine 11/13/17 documented as of this encounter
--- OUTSIDE RECORDS SUMMARY | 2025-01-06 14:32 | XMS_ITS | Encounter Summary ---
Author Organization [employer] Address [address] [facility] 7[address] [place] [address] Care Team Providers Care Wash Plant Operator Name Role Phone Haley Dominguez MD Primary Care Provider + Reason for Visit * Reason Onset Date Comments Call Back Request 03/28/2023 Encounter Details Date Type Department Care Team ([facility] st Contact Info) Description 03/28/2023 Telephone [facility] MEDICINE [address] [place], [place] [phone] Haley Dominguez MD [address] [place] [address] Call Back Request Social History Tobacco Use Types Packs/Day Years [...] encounter Miscellaneous Notes * Telephone Encounter - Farzana Newton - 03/28/2023 10:34 AM EST Tc from rufino with Deandra requesting status on PCP form. Please contact Rufino at [phone] documented in this encounter Plan of Treatment Not on file documented as of this encounter Visit Diagnoses Not on filedocumented in this encounter Additional Health Concerns Assessment Noted Time PHQ-9 Depression Total Score: 1 07/06/19 23 9:47 AM EDT documented as of this encounter Care Teams Wash Plant Operator Relationship Specialty Start Date End Date Haley Dominguez MD [address] [place] [phone] PCP - General Family Medicine 11/13/17 documented as of this encounter
[2025-01-06 14:35] LABS: Reflex LDLD? No
[2025-01-06 19:22] LABS: PSA,Total (Free>4and<10) 4.46 ng/mL (0.00-4.00)
[2025-01-07 12:03] LABS: Free Prostate Spec Ag 0.3 ng/mL; Percent Free Prostate Spec Ag 7 % (calc) (>25)
== END 2025-01-06 12:02 | disposition home or self-care (01) ==
LOC: HO.HHCL 12:01
PROVIDERS: Urology; PCP Internal Medicine; Visit Provider Internal Medicine
DX: Z12.5 Encounter for screening for malignant neoplasm of prostate (principal); E11.59 Type 2 diabetes mellitus with other circulatory complications; R97.20 Elevated prostate specific antigen [PSA]; R53.83 Other fatigue
CPT/HCPCS: 36415; 80053; 80061; 84153; 84154; 84443; 85025

== ENCOUNTER 2025-02-02 16:20 | Emergency (ER) | payer MEDICARE, MEDICAID, SELFPAY ==
[2025-02-02 16:31] VITALS: BP 127/59; PULSE 63; RESP 18; TEMP 36.6; O2SAT 97; BMI 34.0
--- NOTE | 2025-02-02 16:35 | ED_ITS ---
HPI - General Adult General Chief complaint: General Medical Stated complaint: ingested 1/4 of a tab of toilet tube cleaner Time Seen by Provider: 02/02/25 16:35 Source: patient, EMS and brake drum molder (all interactions with this patient were facilitated with an [facility] cook morning) Mode of arrival: EMS Limitations: language barrier (all interactions with this patient were facilitated with an [facility] cook morning) and physical limitation (patient has cognitive delay) History of Present Illness ED Provider: Jagruti Sutton PA-C HPI narrative: Patient is a 75 year old assigned male at with a history of BPH, epilepsy, cerebral palsy, and cognitive delay presenting to the emergency department today after ingesting 1/2 tab of toilet bowl tube cleaner. Patient lives in a chcf and got ahold of toilet bowl tube cleaner and ingested 1/2 tab. Patient is acting his baseline at this time and has no symptoms or complaints. Related Data Home Medications ?Medication ?Instructions ?Recorded ?Confirmed alcohol swabs pad topical 03/30/20 0 aspirin 81 mg tablet,delayed 81 mg PO QAM 03/30/2011/23 release atorvastatin 40 mg tablet mg PO 03/30/20 11/07/24 blood-glucose meter #1 ea 03/30/20 03/30/20 losartan 50 mg tablet 50 mg PO DAILY 03/30/2011/23 omeprazole 20 mg capsule,delayed 20 mg PO DAILY 08/08/22 release metformin 850 mg tablet 850 mg PO BID 01/12/2108/08 ammonium lactate 12 % topical cream 1 appl topical BID 07/13/21 08/08/22 ergocalciferol (vitamin D2) 1,250 1,250 mcg PO QWEEK 0 07/13/21 08/08/22 mcg (50,000 unit) capsule (Vitamin D2) lancets 28 gauge (Prodigy Twist #100 ea 07/13/21 Top Lancet) acetaminophen 325 mg tablet 650 mg PO QID PRN Pain 08/08/22 bacitracin 500 unit/gram topical topical 02/16/22 ointment guaifenesin 200 mg tablet 200 mg PO QID 02/16/2208/08 Previous Rx's ?Medication ?Instructions ?Recorded finasteride 5 mg tablet 5 mg PO DAILY 90 days #90 ta bs 08/07/24 tolterodine 4 mg capsule,extended 4 mg PO BID 90 days #180 caps 08/07/24 release 24 hr phenobarbital 32.4 mg tablet 129.6 mg (4 x 32.4 mg) PO BEDTIME 12/16/24 30 days #120 tabs phenytoin sodium extended 100 mg 200 mg (2 x 100 mg) P O BID 30 days 12/16/24 capsule #120 caps terazosin 1 mg capsule 1 mg PO DAILY 90 days #90 ca ps 01/14/25 folic acid 1 mg tablet 1 mg PO QAM #90 tabs 5 Allergies Allergy/AdvReac Type Severity Reaction Status Date / Time lisinopril AdvReac Unknown cough Verified 02/02/25 16:34 Review of Systems Constitutional: Constitutional: Reports as per HPI Eyes: Eyes: Reports as per HPI ENT: Reports as per HPI Cardiovascular: Cardiovascular: Reports as per HPI Respiratory: Respiratory: Reports as per HPI Gastrointestinal: Gastrointestinal: Reports as per HPI Genitourinary: Genitourinary: Reports as per HPI Musculoskeletal: Musculoskeletal: Reports as per HPI Integumentary/Breasts: Skin/Breast: Reports as per HPI Neurologic: Reports as per HPI Psychiatric: Psychiatric: Reports as per HPI Endocrine: Endocrine: Reports as per HPI Hematologic/Lymphatic: Hematologic/Lymphatic: Reports as per HPI Allergic/Immunologic: Allergic/Immunologic: Reports as per HPI PMF Past Medical History Attestation statement: The following information was validated with the patient. (all information validated with chcf staff) Source: old records reviewed, nursing notes reviewed and other (patient's ch[facility] staff provided additional history and confirmed the history provided by the patient. ) Medical History Abnormal gait Anodontia HTN (hypertension) Diabetes Affective disorder Schizophrenia Tubular adenoma Hyperlipemia Seizure disorder BPH (benign prostatic hyperplasia) Frequency of urination Surgical History Hx of colonoscopy Family History Family History Unknown No problems noted. 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 Members Other:: chcf Alcohol intake: never Patient Tobacco Use Status: Never used Tobacco Advance Directives: Yes Advance Directives Information Provided: No Advance Directives on File: No Advance Directives Date on File: 08/11/22 Do you have a plan to hurt others: No Plan Physical Exam ED Vital Signs: Vital Signs - 24 hr 02/02/25 16:31 02/02/25 17:37 Temperature 97.8 F 98.9 F Pulse Rate 63 69 Respiratory Rate 18 18 Blood Pressure 127/59 L 124/59 L Pulse Oximetry 97 98 Oxygen Delivery Method Room Air Room Air BMI result Body Mass Index 34.0 Const General: cooperative, no acute distress, alert and awake Nutritional Appearance: well nourished Orientation/consciousness: oriented to person HENMT Head: Yes normal to inspection and Yes atraumatic Ears: hearing grossly normal bilaterally and external ears normal General nose exam: Normal external nose present, no nasal discharge noted and no epistaxis Face and sinus: Yes normal facial exam, No abrasion and No laceration Mouth: Normal oral and palatal mucosa present, no drooling and no muffled voice Eyes General: appearance normal, both eyes and all related structures Periorbital: periorbital findings normal Eyelids: Yes eyelids normal Conjunctivae: conjunctivae normal Pupils: Equal, round and reactive pupils present EOM: EOMs intact bilaterally Neck Neck: Yes normal visual inspection and Yes full ROM Resp Effort & Inspection: normal respiratory effort and able to speak in complete sentences Neuro General: oriented to person and moves all extremities Cranial nerves: Yes Equal, round and reactive pupils present Extrem General: Yes normal to inspection, Yes full ROM and Yes capillary refill normal Psych Appearance: grossly normal Mental Status: mental status grossly normal Medical Decision Making Medical Decision Making MDM Narrative: Patient is a 75 year old assigned male at with a history of BPH, epilepsy, cerebral palsy, and cognitive delay presenting to the emergency department today after ingesting 1/2 tab of toilet bowl tube cleaner. Patient's physical exam was as noted in the physical exam portion of this note and consistent with his baseline. Called poison control who recommended the patient drink water and if he tolerates the water - he can be discharged. I explained my physical exam findings to the patient and the patient's chcf staff. I answered all questions asked by the patient and the patient's chcf staff. Patient was able to tolerate several glasses of water without incident. I stressed the importance of the patient taking his medication as directed (either prescribed or as the over the counter packaging recommends). I stressed the importance of the patient following up with his primary care provider. I stressed the importance of the patient returning to the emergency department immediately if he were to develop any dizziness, shortness of breath, difficulty breathing, chest pain, blurry vision, loss of vision, nausea, vomiting, abdominal pain, fever, chills, back pain, or any other complaints. Patient and the patient's chcf staff verbalized agreement and understanding with this treatment plan and discharge back to his chcf. Differential Diagnosis Differential Diagnoses: The differential diagnosis associated with the presentation includes Ingestion of foreign material Admission/Observation Consideration of admission/observation: Escalation of care including admission/observation considered Patient would have been admitted to the hospital had his clinical presentation warranted hospital admission. Consult Healthcare Provider Management of the patient was discussed with: Family Intervention Specialist (spoke with Poison control as noted in the MDM Rationale portion of this note. ) Independent Historian Clinical information obtained from an independent historian. History obtained from or confirmed by: EMS (EMS provided additional history and confirmed the history provided by the patient and chcf staff.) Discharge Plan Discharge Clinical Impression: Ingestion of foreign material Qualifiers: Encounter type: initial encounter Qualified Code(s): T18.9XXA - Foreign body of alimentary tract, part unspecified, initial encounter Patient Disposition: Home, Self-Care Additional Instructions: Poison control states that you are safe to go home because you can tolerate water. Please do not eat tube cleaner. IF you are prescribed home medications and/or you are taking over the counter medications at home- it is very important you continue to do so as prescribed / directed unless told otherwise. SI le recetan medicamentos y/o est? tomando medicamentos de venta kathie, es muy importante que contin?e haci?ndolo seg?n lo recetado/indicado a menos que le indiquen lo contrario. Follow up with your primary care provider. Return to the emergency department immediately if your symptoms worsen or if you develop any dizziness, shortness of breath, difficulty breathing, chest pain, blurry vision, loss of vision, nausea, vomiting, abdominal pain, fever, chills, back pain, or any other complaints. Maura?seguimiento?con tavera m?dico de atenci?n primaria. Acuda inmediatamente al servicio de urgencias si miguel s?ntomas empeoran o si presenta falta de aliento, dificultad para respirar, dolor tor?cico, mareos, aturdimiento, dolor de espalda, dolor abdominal, fiebre, escalofr?os o cualquier otro s?ntoma. Please see the information below about our Patient Portal. If you are not yet enrolled in the [facility] Patient Portal, you will receive an enrollment email invitation following your visit to any [facility] care setting. You may also self-enroll in the Patient Portal by visiting our website: [email or web address] The following information is required to access the Patient Portal: - Your [facility] Medical Record Number - Your personal home email address (must match what is in your electronic medical record, Registration staff can assist with this) - Name - Date of Capabilities of the Patient Portal: - Message some providers - View upcoming appointments - Access your health summary, medical history, and visit history - View current conditions and allergies - View procedure and lab results - View your medications, including guidelines, side effects, and precautions - Complete pre-appointment questionnaires requested by your provider - Ready summary reports of your office visits and procedures To access the Patient Portal Mobile Ihsan, follow these directions: - Search TrunqShow in the Ihsan Store or PingTank Store - Download the Ihsan - Search for [facility] - Enter your login/password Portal del paciente Si usted no esta inscrito en el portal de pacientes de [facility], recibira jackson invitacion de inscripcion despues de tavera visita al [facility] o al [facility] via correo electronico. Tambien puede inscribirse voluntariamente en el portal de pacientes visitando nuestra pagina web: [email or web address] La siguiente informacion sera requerida para acceder al portal: - Tavera richard de historia medica de [facility] - Tavera direccion de correo electronico personal - Nombre - Fecha de nacimiento Capacidades: Las siguientes capacidades estan disponibles en el portal de pacientes: - Enviar mensajes a algunos doctores - Verificar proximas citas - Acceso a tavera historial de ricky, registro medico e historial de visitas - Katelyn las condiciones actuales y alergias katelyn procedimientos y resultados del laboratorio - Katelyn miguel medicamentos, incluyendo las pautas - Efectos secundarios y precauciones - Completar o llenar formularios / cuestionarios de - Citas solicitadas por tavera doctor - Leer los resumenes de reportes medicos de miguel visitas y procedimientos [place] acceder a la aplicacion movil: - Busleidy OkCupidealth en la Ihsan Store o Google PhotoSynesi Store - Descargue la aplicacion - [facility] - Ingrese tavera nombre de usuario / Contrasena Prescriptions: No Action finasteride 5 mg tablet 5 mg PO DAILY 90 Days Qty: 90 2RF tolterodine 4 mg capsule,extended release 24hr 4 mg PO BID 90 Days Qty: 180 2RF phenytoin sodium extended 100 mg capsule 200 mg PO BID 30 Days Qty: 120 5RF phenobarbital 32.4 mg tablet 129.6 mg PO BEDTIME 30 Days Qty: 120 5RF terazosin 1 mg capsule 1 mg PO DAILY 90 Days Qty: 90 1RF folic acid 1 mg tablet 1 mg PO QAM Qty: 90 1RF omeprazole 20 mg capsule,delayed release(DR/EC) 20 mg PO DAILY atorvastatin 40 mg tablet PO aspirin 81 mg tablet,delayed release (DR/EC) 81 mg PO QAM alcohol swabs Pads, Medicated topical (DME) blood-glucose meter Kit See Rx Instructions Not Applicable BID Qty: 1 Rx Instructions: As directed losartan 50 mg tablet 50 mg PO DAILY metformin 850 mg tablet 850 mg PO BID ammonium lactate 12 % cream 1 appl topical BID ergocalciferol (vitamin D2) [Vitamin D2] 1,250 mcg (50,000 unit) capsule 1,250 mcg PO QWEEK (DME) lancets [Prodigy Twist Top Lancet] 28 gauge misc See Rx Instructions .ROUTE .MEDSUPPLY Qty: 100 Rx Instructions: As directed acetaminophen 325 mg tablet 650 mg PO QID PRN (Reason: Pain) bacitracin 500 unit/gram ointment topical guaifenesin 200 mg tablet 200 mg PO QID Interventions: ED Discharge Assessment Last Done: 02/02/25 17:37 Discharge Date/Time: 02/02/25 17:39 Print Language: Albanian
--- NOTE | 2025-02-02 16:51 | PC.NURSE ---
This RN called poison control and gave info, recommendation: PO challenge, watch and then d/c Provider aware
--- OUTSIDE RECORDS SUMMARY | 2025-02-02 17:00 | XMS_ITS | Encounter Summary ---
Author Organization [employer] Address [address] [place] [address] [address] [place] [address] Care Team Providers Care Form Carpenter Name Role Phone Haley Dominguez MD Primary Care Provider + Reason for Visit * Reason Onset Date Comments Prior Authorization 09/28/2023 Encounter Details Date Type Department Care Team ([facility] st Contact Info) Description 09/28/2023 Telephone [facility] MEDICINE [address] [place] [address] Haley Dominguez MD [address] [place] [address] Prior Authorization Social History Tobacco Use Types [...] - 10/16/2023 1:09 PM EDT Tc from [facility] with [facility] requesting status on message prior. * Telephone Encounter - Samara Downing - 10/13/2023 2:41 PM EDT Please advise if agree with PA for lidoderm. Thank you * Telephone Encounter - Mark Anthony Tripathi - 10/11/2023 2:27 PM EDT Tc from [facility] with [facility] requesting status on prior authorization. * Telephone Encounter - Elida Sexton - 09/28/2023 1:46 PM EDT Tc from [facility] with [facility] calling to inform a PA for medication lidocaine (Lidoderm) 5 % patch is needed . Any question best contact # [phone] ext [phone] documented in this encounter Plan of Treatment Not on file documented as of this encounter Visit Diagnoses Not on filedocumented in this encounter Additional Health Concerns Assessment Noted Time PHQ-9 Depression Total Score: 1 07/06/19 9:47 AM EDT documented as of this encounter Care Teams Form Carpenter Relationship Specialty Start Date End Date Haley Dominguez MD [address] [place] [id number] PCP - General Family Medicine 11/13/17 documented as of this encounter
--- OUTSIDE RECORDS SUMMARY | 2025-02-02 17:00 | XMS_ITS | Encounter Summary ---
Author Organization [employer] Address [address] [facility] 7t [place] [address] Care Team Providers Care Hardware Test Engineer Name Role Phone Haley Dominguez MD Primary Care Provider + Reason for Visit * Reason Comments Med Refill Encounter Details Date Type Department Care Team (Late st Contact Info) Description 10/12/2023 Refill [facility] [address] [place] [address] Shira Nova FNP [address] [place] [address] Social History Tobacco Use Types Packs/Day Years [...] documented as of this encounter Care Teams Hardware Test Engineer Relationship Specialty Start Date End Date Haley Dominguez MD [address] [place] [address] PCP - General Family Medicine 11/13/17 documented as of this encounter
--- OUTSIDE RECORDS SUMMARY | 2025-02-02 17:00 | XMS_ITS | Encounter Summary ---
Author Organization [employer] Address [address] [facility] [address]t [place] [address] Care Team Providers Care Billing Assistant Name Role Phone Haley Dominguez MD Primary Care Provider + Reason for Visit * Reason Onset Date Comments Nurse Triage 02/02/2023 Encounter Details Date Type Department Care Team ([facility] st Contact Info) Description 02/02/2023 Telephone [facility] MEDICINE [address] [place], [place] [phone] Haley Dominguez MD [address] [place] [address] Nurse Triage Social History Tobacco Use Types [...] the past 12 months, has t he Biox[employer], I Just Shared, oil or water [employer] threatened to shut off services in your [...] RN - 02/02/2023 11:20 AM EDT Called longterm and pt. Has been coughing while eating and choking on his food. Staff have been cutting food into tiny pieces as instructed by PCP at last OV on 01/12/23 but pt. Continues to cough/choke on tiny pieces of food. [facility] is requesting a Swallowing study to evaluate [...] appt. Not needed have team nurse call [facility] with plan of care. Positive Triage Questions: [...] documented as of this encounter Care Teams Billing Assistant Relationship Specialty Start Date End Date Haley Dominguez MD [address] [place] [id number] PCP - General Family Medicine 11/13/17 documented as of this encounter
--- OUTSIDE RECORDS SUMMARY | 2025-02-02 17:00 | XMS_ITS | Encounter Summary ---
Author Organization [employer] Address [address] [facility] 7t [place] [address] Care Team Providers Care Position Clerk Name Role Phone Haley Dominguez MD Primary Care Provider + Reason for Visit * Reason Onset Date Comments Call Back Request 03/28/2023 Encounter Details Date Type Department Care Team ([facility] st Contact Info) Description 03/28/2023 Telephone [facility] MED[facility]INE [address] [place], [place] [phone] Haley Dominguez MD [address] [place] [address] Call Back Request Social History Tobacco Use [...] on PCP form. Please contact Rufino at [phone] documented in this encounter Plan of Treatment Not on file documented as of this encounter Visit Diagnoses Not on filedocumented in this encounter Additional Health Concerns Assessment Noted Time PHQ-9 Depression Total Score: 1 07/06/19 23 9:47 AM EDT documented as of this encounter Care Teams Position Clerk Relationship Specialty Start Date End Date Haley Dominguez MD [address] [place] [id number] PCP - General Family Medicine 11/13/17 documented as of this encounter
--- OUTSIDE RECORDS SUMMARY | 2025-02-02 17:00 | XMS_ITS | Encounter Summary ---
Author Organization [employer] Address [address] [facility] 7t [place] [address] Care Team Providers Care Pourer Buggy Ladle Name Role Phone Haley Dominguez MD Primary Care Provider + Reason for Visit * Reason Comments Med Refill Encounter Details Date Type Department Care Team (Late st Contact Info) Description 04/01/2024 Refill [facility] MEDICINE [address] [place] [address] Haley Dominguez MD [address] [place] [address] Social History Tobacco Use Types Packs/Day Years [...] documented as of this encounter Care Teams Pourer Buggy Ladle Relationship Specialty Start Date End Date Haley Dominguez MD [address] [place] [id number] PCP - General Family Medicine 11/13/17 documented as of this encounter
--- OUTSIDE RECORDS SUMMARY | 2025-02-02 17:00 | XMS_ITS | Encounter Summary ---
Author Organization [employer] Address [address] [facility] [address]t [place] [address] Care Team Providers Care Rn Quality Name Role Phone Haley Dominguez MD Primary Care Provider + Reason for Visit * Reason Comments Med Refill Encounter Details Date Type Department Care Team (Late st Contact Info) Description 12/19/[address] [facility] MEDICINE [address] [place] [address] Haley Dominguez MD [address] [place] [address] Essential hypertension Social History Tobacco Use Types [...] documented as of this encounter Care Teams Rn Quality Relationship Specialty Start Date End Date Haley Dominguez MD [address] [place] [address] PCP - General Family Medicine 11/13/17 documented as of this encounter
--- OUTSIDE RECORDS SUMMARY | 2025-02-02 17:00 | XMS_ITS | Encounter Summary ---
Author Organization [employer] Address [address] [facility] 7t [place] [address] Care Team Providers Care Tag Stringer Name Role Phone Haley Dominguez MD Primary Care Provider + Reason for Visit * Reason Onset Date Comments Med Refill 11/22/2024 Encounter Details Date Type Department Care Team ([facility] st Contact Info) Description 11/22/2024 Telephone [facility] MEDICINE [address] [place], [place] [phone] Haley Dominguez MD [address] [place] [address] Med Refill Social History Tobacco Use Types [...] refill : ergocalciferol (Vitamin D2) 1.25 MG (66535 UT) capsule To be sent to: [facility] - [address] documented in this encounter Plan of Treatment Not on file documented as of this encounter Visit Diagnoses Not on filedocumented in this encounter Additional Health Concerns Assessment Noted Time PHQ-9 Depression Total Score: 1 07/06/19 23 9:47 AM EDT documented as of this encounter Care Teams Tag Stringer Relationship Specialty Start Date End Date Haley Dominguez MD [address] [place] [phone] PCP - General Family Medicine 11/13/17 documented as of this encounter
--- OUTSIDE RECORDS SUMMARY | 2025-02-02 17:00 | XMS_ITS | Encounter Summary ---
Author Organization [employer] Address [address] [facility] 7t [place] [address] Care Team Providers Care Roll Press Operator Name Role Phone Haley Dominguez MD Primary Care Provider + Reason for Visit * Reason Comments Med Refill Encounter Details Date Type Department Care Team (Late st Contact Info) Description 03/28/2023 Refill [facility] MEDICINE [address] [place] [address] Haley Dominguez MD [address] [place] [address] Social History Tobacco Use Types Packs/Day Years [...] documented as of this encounter Care Teams Roll Press Operator Relationship Specialty Start Date End Date Haley Dominguez MD [address] [place] [phone] PCP - General Family Medicine 11/13/17 documented as of this encounter
--- OUTSIDE RECORDS SUMMARY | 2025-02-02 17:00 | XMS_ITS | Clinical Summary ---
Author Organization [facility] Address [address] [place] [address] 7[address] [place] [address] Care Team Providers Care Bakelite Molder Name Role Phone Haley Dominguez MD Primary [...] hyperglycemia, without long-term current use of insulin ([facility]) 1 kit 2 times daily. 1 kit 024 Active Prodigy Twist Top Lancets 28G miscIndications:T ype 2 diabetes mellitus with hyperglycemia, without long-term current use of insulin ([facility]) USE TO TEST BLOOD SUGAR 2 TIMES [...] BLOOD SUGAR TWICE DAILY. 50 strip 11 Active PHENobarbital 32.4 MG tablet Take 4 [...] 24 HOURS* 360 mL 1 025 Active atorvastatin (Lipitor) 40 MG tabletIndications :Other hyperlipidemia TAKE 1 TABLET BY MOUTH DAILY AT BEDTIME AT 8 PM 30 tablet 3 025 Active ferrous gluconate (Fergon) 324 (38 [...] split. 30 tablet 11 025 2025 Active losartan (Cozaar) 50 MG tabletIndications :Essential hypertension TAKE 1 TABLET BY MOUTH ONCE DAILY IN THE MORNING AT 8 AM 30 tablet 3 025 Active ergocalciferol (Vitamin D2) 1.25 MG (98441 UT) capsuleIndication s:Vitamin D deficiency disease TAKE 1 CAPSULE BY MOUTH ONCE WEEKLY 4 capsule 1 025 Active omeprazole (PriLOSEC) [address] capsule TAKE 1 CAPSULE BY MOUTH DAILY ONE HOUR BEFORE THE MORNING MEAL 30 capsule 5 025 Active omeprazole (PriLOSEC) [address] capsule TAKE 1 CAPSULE BY MOUTH DAILY ONE HOUR BEFORE THE MORNING MEAL 30 capsule 5 025 2024 Discontinued losartan (Cozaar) 50 MG tabletIndications :Essential hypertension TAKE 1 TABLET BY MOUTH ONCE DAILY IN THE MORNING AT 8 AM 30 tablet 3 025 2024 Discontinued(R eorder (will not trigger notification to Pharmacy)) ergocalciferol (Vitamin D2) 1.25 MG (80994 UT) capsuleIndication s:Vitamin D deficiency disease TAKE 1 CAPSULE BY MOUTH ONCE WEEKLY 4 capsule 1 025 2024 Discontinued(R eorder (will not trigger [...] on 01/25 is pending result, will call [facility] to expedite reading, specially since he had a seizure after his fall/SAH. Hb drop very little since fall, has remained fairly stable. Continue off ASA until I see CT scan report. He completed PT at home and his mobility within the home has improved. I will refer him to PT outside ([facility]) to improve mobility outside the home and prevent further falls. Continue ambulation with walker as much as possible, I told the home stager (Bertha) that transport wheelchair should be limited [...] 1:00 PM EDT): Discussed with patient and detention re increase fresh fruit and vegetable intake. Counseled re moderate exercise as tolerated, up to 20min/d, discussed with after school program director and staff coordinator regarding risk [...] 2:03 PM EDT): Discussed with patient and detention re increase fresh fruit and vegetable intake. Counseled re moderate exercise as tolerated, up to 20min/d Patient feels safe at home. Eye exam: up to date, next one due February 2024, will obtain OV notes. CRC screen: UTD, next one due on 2027 Lipids/FBS: Overdue, order given to Pat today. Vaccinations: counseled regarding covid and zoster booster (rx sent to [facility] pharmacy). 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 Refer to PT at [facility]. Assessment & Plan (10/12/2023 11:16 AM EDT): Due to DJD spine, microvascular CEO & FOUNDER disease Ambulates with walker, sp PT and gait retraining. No recent falls, staff will re consult PRN, falls, or pain Assessment & Plan (09/01/2023 2:32 PM EDT): Due to DJD spine, microvascular CEO & FOUNDER disease Ambulates with walker, sp PT and gait retraining. Assessment & Plan (11/21/2022 2:33 PM EDT): Sec to DJD spine + ? CEO & FOUNDER abn (NPH?) + meds. Encouraged ambulation with [...] who is more available and bilingual in azeri and romanian. She reached out to clinical social worker to assist on it. Patient unable to [...] transfers and uses a walker at the [facility] foster home care program. Discussed with supervisor fishing and staff coordinator regarding the importance of [...] appointment. He is safe at home at [facility] program where he is assisted [...] Reminded them to make an appointment with mud mill tender (Dr. Rojas), last appointment was November 2023 [...] calorie intake and increased exercise Discussed with Pat, house staff, to get booster for Covid, [...] months Hyperlipidemia 12/23/2011 Obesity 12/23/2011 Seizure disorder ([facility]/HCC) 12/23/2011 Assessment & Plan (02/07/2024 3:47 PM [...] No seizures since last visit Reminded warehouse unloader to get Dilantin levels and labs done Assessment & Plan (11/21/2022 2:31 PM EDT): No seizure activity within past 6mo. Sees neurology Continue Phenobarbital + Dilantin. Safety precautions discussed with primary caregiver form [facility], patient doesn't drive. Tubular adenoma 12/23/2011 Overview (07/13/2023): Dr Clements at [facility], 08/2022 Assessment & Plan (07/13/2023 1:59 PM [...] Encounters Date Type Department Care Team Description 01/14/2025 Refill [facility] [address] [place] [address] Haley Dominguez MD 01/10/2025 Refill [facility] [address] [place] [address] Haley Dominguez MD Essential hypertension; Vitamin D deficiency disease 01/09/2025 Telephone [facility] [address] [place] [address] Haley Dominguez MD requested notes 01/06/2025 10:45 AM EDT Office Visit [facility] [address] [place] [address] Haley Dominguez MD 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); Encounter for preventive health examination; Diarrhea, unspecified type; Other fatigue; Risk for falls; Memory impairment; Encounter for vaccination; Encounter for immunization 01/06/2025 Orders Only GENERIC EXTERNAL DATA DEPARTMENT Provider, Generic External Data 01/06/2025 Travel 01/02/2025 Refill [facility] [address] [place] [address] Chikis Loaiza, RN Xerosis of skin 12/31/2024 Telephone [facility] [address] [place] [address] Haley Dominguez MD R/S appt 01/10/25 12/19/2024 Refill [facility] [address] [place] [address] Haley Dominguez MD Essential hypertension 12/16/2024 Refill [facility] [address] [place] [address] Haley Dominguez MD 11/25/2024 Refill [facility] [address] [place] [address] Haley Dominguez MD 11/22/2024 Telephone [facility] [address] [place] [address] Haley Dominguez MD Med Refill 11/22/2024 Refill [facility] [address] [place] [address] Haley Dominguez MD Vitamin D deficiency disease from Last 3 Months Immunizations Immunization Administration [...] Diabetes: Urine Protein Screening 07/17/2024 07/18/2023, 09/21/2020 DTaP/Tdap/Td Vaccines (2 - Td or Tdap) 08/18/2024 08/18/2014, 06/25/2003 Depression Screening 10/11/2024 10/12/2023, 07/06/19 Diabetes: Hemoglobin A1C 07/07/2025 025, 02/07/2024, 07/13/2023, Additional history exists Diabetes: Foot Exam 01/06/2026 01/06/2025, 01/06/2025, 01/06/2025, Additional history exists Lipid Panel 01/06/2026 01/06/2025, 07/02, 12/07/2021, Additional history exists Tobacco Screening 01/06/2026 01/06/2025 [...] Procedure Name Priority Date/Time Associated Diagnosis Comments PSA, FREE AND TOTAL Routine 01/06/2025 7 :22 PM EDT PSA, TOTAL WITH REFLEX TO PSA, FREE Routine 01/06/2025 12:12 PM EDT TSH W/REFLEX TO FT4 Routine 01/06/2025 1 [...] Relevant to Health Maintenance Results * (ABNORMAL) PSA, Free and Total (01/06/2025 7:22 PM EDT) PSA, Total 4.1(A) < OR = 4.0 ng/mL [facility] PSA % Free 7(A) >25 % (calc) [facility] Comment: PSA(ng/mL) Free PSA(%) Estimated(x) Probability of Cancer(as%)0-2.5 (*) Approx. 12.6-4.0(1) 0-27(2) 24(3)4.1-10(4) 0-10 56 11-15 28 16-20 20 21-25 16 >or =26 8>10(+) N/A >50References:(1)Bubbaona et al.:Urology 60: 469-474 (2001) (2)Catalona et al.:J.Urol 168: 922-925 (2001) Free PSA(%) Sensitivity(%) Specificity(%) < or = 25 85 19 < or = 30 93 9 (3)Catalona et al.:ELIE 277: 1926-5941 (1996) (4)Catalona et al.:ELIE 279: 1100-4949 (1997)(x)These estimates vary with age, ethnicity, family history and EDITH results.(*)The diagnostic usefulness of % Free PSA has not been established in patients with total PSA below 2.6 ng/mL(+)In men with PSA above 10 ng/mL, prostate cancer risk is determined by total PSA alone.The Total PSA value from this assay system isstandardized against the equimolar PSA standard.The test result will be approximately 20% higherwhen compared to the WHO-standardized Total PSA(Siemens assay). Comparison of serial PSA resultsshould be interpreted with this fact in mind.PSA was performed using the Placido CoulterImmunoassay method. Values obtained from differentassay methods cannot be used interchangeably. PSAlevels, regardless of value, should not be interpretedas absolute evidence of the presence or absence ofdisease.THIS TEST WAS PERFORMED AT:[facility] [place] [id number] SRINIVASAN MD PSA, Free 0.3 ng/mL [facility] 01/06/2025 7:22 PM EDT 01/06/2025 7:22 PM EDT Generic External Data Provider LAB BLOOD ORDERAB LES Final Result Performing Organization Address [facility]/ZIP Co de Phone Number [facility] [address] [place] [phone] * TSH with Reflex to Free T4 (01/06/2025 12:12 PM EDT) TSH reflex Free T4 0.94 0.32 - 4.0 uIU/mL [facility] Blood 01/06/2025 12:1 2 PM EDT 01/06/2025 1:24 PM EDT Haley Dominguez MD LAB BLOOD ORDERABLES Fin al Result Performing Organization Address [facility]/ZIP Co de Phone Number [facility] [address] [place] [phone] * (ABNORMAL) PSA, Total With Reflex to PSA, Free (01/06/2025 12:12 PM EDT) PSA,Total (Free>4and<10) 4.46(H) 0.00 - 4.00 ng/mL [facility] Comment:PSA methodology: [address] i ChemiluminescentMicroparticle Immunoassay (CMIA) 01/06/2025 12:1 2 PM EDT 01/06/2025 1:24 PM EDT us Generic External Data Provider LAB BLOOD ORDERAB LES Final Result Performing Organization Address [facility]/ZIP Co de Phone Number [facility] [address] [place] [address] [phone] * (ABNORMAL) Lipid Panel with Reflex to Direct LDL (01/06/2025 12:12 PM EDT) Triglycerides 158(H) <150 mg/dL [facility] Comment:Desirable Triglyceri de: less than 150 mg/dLBorderline High Triglyceride 150-199 mg/dLHigh Triglyceride: 200-499 mg/dLVery High Triglyceride: greater than or equal to 5OO mg/dL Cholesterol 141 <200 mg/dL [facility] Comment:Desirable Cholestero l: less than 200 mg/dLBorderline High Cholesterol: 200-239 mg/dLHigh Cholesterol: greater than 239 mg/dL LDL Cholesterol Calculated 78 <100 mg/dL [facility] Comment:Desirable LDL: less than 100 mg/dLNear Optimal/Above Optimal LDL: 110- 129 mg/dLBorderline High LDL: 130-159 mg/dLHigh LDL: 160-189 mg/dLVery High LDL: greater than or equal to 190 mg/dL HDL Cholesterol 32(L) >40 mg/dL [facility] Comment:Desirable HDL: great er than 40 mg/dL Note: This HDL assay may give artificially low results in patients with liver disease. Blood 01/06/2025 12:1 2 PM EDT 01/06/2025 1:24 PM EDT us Haley Dominguez MD LAB BLOOD ORDERABLES Fin al Result Performing Organization Address City/[facility]/ZIP Co de Phone Number [facility] [address] [place] [phone] [phone] * (ABNORMAL) CBC auto differential (01/06/2025 12:12 PM EDT) White Blood Count 6.9 4.8 - 10.8 X10*3/uL [facility] Red Blood Count 3.71(L) 4.60 - 5.80 X10*6/uL [facility] Hemoglobin 10.1(L) 14.0 - 18.0 g/dl [facility] Hematocrit 32.2(L) 42.0 - 52.0 % [facility] Mean Corpuscular Volume 86.8 80.0 - 98.0 fL [facility] Mean Corpuscular Hemoglobin 27.2 27.0 - 33.0 pg [facility] Mean Corpuscular HGB Conc 31.4 31.0 - 36.0 g/dl [facility] Red Cell Distribution Width 15.4 11.0 - 16.0 % [facility] Platelet Count 271 160 - 400 X10*3/uL [facility] Mean Platelet Volume 9.8 9.4 - 12.4 fL [facility] Neutrophils Percent Auto 58.0 45 - 73 % [facility] Imm Gran Pct Auto 0.4 0.0 - 0.4 % [facility] Lymphocytes Percent Auto 28.2 20 - 40 % [facility] Monocytes Percent Auto 9.6 2 - 11 % [facility] Eosinophils Percent Auto 3.1 0 - 4 % [facility] Basophils Percent Auto 0.7 0 - 2 % [facility] NRBC Pct Auto 0.0 0.0 - 0.2 /100WBC [facility] Neutrophils Absolute Auto 4.0 2.0 - 8.3 x10*3/uL [facility] Imm Gran Abs Auto 0.03 0.00 - 0.03 X10*3/uL [facility] Lymphocytes Absolute Auto 1.9 1.2 - 4.9 X10*3/uL [facility] Monocytes Absolute Auto 0.7 0.1 - 1.2 X10*3/uL [facility] Eosinophils Absolute Auto 0.2 0.0 - 0.4 X10*3/uL [facility] Basophils Absolute Auto 0.1 0.0 - 0.2 X10*3/uL [facility] NRBC Abs Auto 0.000 0.0 - 0.012 X10*3/uL [facility] Blood Venous blood specimen / Unknown 01/06/2025 12:12 PM EDT 01/06/2025 1:24 PM EDT us Haley Dominguez MD LAB BLOOD ORDERABLES Fin al Result [facility] [address] [place] [phone] * (ABNORMAL) Comprehensive Metabolic Panel (01/06/2025 12:12 PM EDT) Sodium 139 135 - 145 mmol/L [facility] Potassium 4.2 3.3 - 5.1 mmol/L [facility] Chloride 104 96 - 108 mmol/L [facility] Carbon Dioxide 27 22 - 29 mmol/L [facility] Anion Gap 12 12 - 20 [facility] Urea Nitrogen (BUN) 17(H) 9 - 16 mg/dL [facility] Creatinine, Serum 0.83 0.5 - 1.4 mg/dL [facility] Estimated Glomerular Filt Rate >60 [facility] Comment:Chronic Kidney Disea se: Estimated GFR < 60 mL/min/[id number] Kidney Disease: Estimated GFR < 15 mL/min/1.73m2 Glucose 92 60 - 115 mg/dL [facility] Calcium 8.8 8.4 - 10.2 mg/dL [facility] Bilirubin, Total 0.2 0.0 - 1.0 mg/dL [facility] Aspartate Amino Transferase 30 5 - 37 U/L [facility] Alanine Aminotransferase 17 0 - 40 U/L [facility] Total Protein 7.0 6.5 - 8.0 g/dL [facility] Albumin Level 3.8 3.5 - 5.0 g/dL [facility] Alkaline Phosphatase 134(H) 39 - 117 U/L [facility] Blood Venous blood specimen / Unknown 01/06/2025 12:12 PM EDT 01/06/2025 1:24 PM EDT us Haley Dominguez MD LAB BLOOD ORDERABLES Fin al Result [facility] [address] [place] [phone] [phone] * (ABNORMAL) POCT Hgb A1c (01/06/2025 [...] 8:54 AM EDT) Creatinine, Urine 49.01 mg/dL [facility] Microalbumin Urine 45.0 mg/L H [facility] Microalbum Creatinine Ratio Ur 91.8(H) <30 ug/mg cr [facility] Comment:Albumin/Creatinine R atio Reference Ranges: Normal: < 30 ug/mg creatinine Microalbuminuria: 30 - 300 ug/mg creatinineClinical Albuminuria: > 300 ug/mg creatinine 07/18/2023 8:54 AM EDT 07/18/2023 11:37 AM EDT Haley Dominguez MD LAB URINE ORDERABLES Fin al Result [facility] [address] [place] [phone] [phone] from Last 3 Months or Most Recently Relevant to Health Maintenance Insurance [place], [place] [facility] STANDARD MEDICARE * Guarantor: [place] Lott Account Type Relation to Patient Date of Phone Billing Address Personal/Family Self [place], [place] Care Teams Bakelite Molder Relationship Specialty Start Date End Date Haley Dominguez MD [address] [place] [address] PCP - General Family Medicine 11/13/17
--- OUTSIDE RECORDS SUMMARY | 2025-02-02 17:00 | XMS_ITS | Encounter Summary ---
Author Organization [employer] Address [address] [facility] [address] [place] [address] Care Team Providers Care Project Lead Name Role Phone Haley Dominguez MD Primary Care Provider + Reason for Visit * Reason Comments Med Refill Encounter Details Date Type Department Care Team (Late st Contact Info) Description 07/16/2024 Refill [facility] [address] [place] [address] Haley Dominguez MD [address] [place] [address] Vitamin D deficiency disease; Essential hypertension Social [...] documented as of this encounter Care Teams Project Lead Relationship Specialty Start Date End Date Haley Dominguez MD [address] [place] [phone] PCP - General Family Medicine 11/13/17 documented as of this encounter
--- OUTSIDE RECORDS SUMMARY | 2025-02-02 17:00 | XMS_ITS | Encounter Summary ---
Author Organization [employer] [facility] Address [address] [facility] [address] [place] [address] Care Team Providers Care Software Maintenance Engineer Name Role Phone Haley Dominguez MD Primary Care Provider + Reason for Visit * Reason Comments Med Refill Encounter Details Date Type Department Care Team (Late st Contact Info) Description 05/31/2023 Refill [facility] [address] [place] [address] Haley Dominguez MD [address] [place] [address] Social History Tobacco Use Types Packs/Day Years [...] documented as of this encounter Care Teams Software Maintenance Engineer Relationship Specialty Start Date End Date Haley Dominguez MD [address] [place] [phone] PCP - General Family Medicine 11/13/17 documented as of this encounter
--- OUTSIDE RECORDS SUMMARY | 2025-02-02 17:00 | XMS_ITS | Encounter Summary ---
Author Organization [employer] Address [address] [facility] [address] [place] [address] Care Team Providers Care Painter And Body Work Name Role Phone Haley Dominguez MD Primary Care Provider + Reason for Visit * Reason Comments Med Refill Encounter Details Date Type Department Care Team (Late st Contact Info) Description 11/25/2024 Refill [facility] [address] [place] [address] Haley Dominguez MD [address] [place] [address] Social History Tobacco Use Types Packs/Day Years [...] documented as of this encounter Care Teams Painter And Body Work Relationship Specialty Start Date End Date Haley Dominguez MD [address] [place] [phone] PCP - General Family Medicine 11/13/17 documented as of this encounter
[2025-02-02 17:37] VITALS: BP 124/59; PULSE 69; RESP 18; TEMP 37.2; O2SAT 98
== END 2025-02-02 17:39 | disposition home or self-care (01) ==
PROVIDERS: Emergency Provider Emergency Medicine; PCP Internal Medicine
DX: T65.891A Toxic effect of other specified substances, accidental (unintentional), initial encounter (principal); G80.9 Cerebral palsy, unspecified; R41.89 Other symptoms and signs involving cognitive functions and awareness; Z79.899 Other long term (current) drug therapy
CPT/HCPCS: 99283